=== PATIENT | female | born 1965 | race Caucasian/White ===

== ENCOUNTER 2020-04-16 14:14 | Outpatient (REF) | payer OTHER, SELFPAY ==
--- NOTE | 2020-04-16 | US_ITS ---
EXAMINATION: MM DIAGNOSTIC DIGITAL BREAST TOMOSYNTHESIS, BILATERAL US DIAGNOSTIC ULTRASOUND BREAST, RIGHT CLINICAL INFORMATION: Due for yearly exam. Follow-up probable benign bilateral calcifications. Also follow-up probable benign nodularity retroareolar right breast. Findings noted at initial baseline 03/28/2018. Calculated TC score 9% COMPARISON: Mammography: 04/16/2019, 10/02/2018, 03/28/2018 (diagnostic, BI-RADS 3); ultrasound right breast for 01/26/2020, 04/16/2019, 10/02/2018, 03/28/2018 (diagnostic, BI-RADS 3). TECHNIQUE: Digital breast tomosynthesis is performed in both the craniocaudal and mediolateral oblique views along with computer-aided detection (CAD). Synthesized 2D images are generated from the tomosynthesis. Additional bilateral magnification CC and bilateral magnification ML views are obtained. Ultrasound right breast is targeted to the retroareolar region using grayscale imaging and color Doppler without and with harmonics. FINDINGS: The breasts are heterogeneously dense, which may obscure small masses (ACR BI-RADS breast composition Category c). Parenchymal pattern is similar to prior studies. Calcifications in the bilateral breasts are similar to prior studies. There are no focal increasing calcifications or interval pleomorphic types. Calcifications are now considered benign. There is no interval mass or architectural abnormality. Oval dominant mass retroareolar right breast is stable. There is no developing density. No significant changes. Ultrasound right breast shows stable circumscribed dominant hypoechoic mass retroareolar position measuring approximately 1.5 x 1.5 x 0.8 cm. This measured 1.5 x 1.4 x 1.0 cm on initial ultrasound 2018. It is now considered benign. There is also a stable hypoechoic nodule, possibly acorn cyst retroareolar breast measuring under 1 cm with similar size and contour to prior studies. This is now considered benign. There is a hypoechoic mass stable from prior studies 1:00 position measuring approximately 1.1 x 0.7 cm. There is no interval new mass or enlarging lesion. Results are discussed with the patient at time of visit. IMPRESSION: 1. Mammography shows no significant changes from prior studies. The bilateral calcifications are now considered to be benign. 2. Right retroareolar hypoechoic masses are stable from prior ultrasound exams and now considered to be benign. ASSESSMENT: BI-RADS 2: Benign RECOMMENDATION: Routine annual mammography screening. This patient's information was entered into a reminder system with a target due date for their next mammogram.
== END 2020-04-16 14:15 | disposition home or self-care (01) ==
LOC: HO.MAMMO 14:14
PROVIDERS: Visit Provider Internal Medicine
DX: R92.8 Other abnormal and inconclusive findings on diagnostic imaging of breast (principal)
CPT/HCPCS: 76642; 77062; 77066; 78013

== ENCOUNTER 2020-08-24 09:57 | Outpatient (REF) | payer OTHER, SELFPAY ==
[2020-08-24 10:07] LABS: COVID-19 Test Positive (Negative)
== END 2020-08-24 09:58 | disposition home or self-care (01) ==
LOC: HO.LAB 09:57
PROVIDERS: Visit Provider Internal Medicine
DX: Z20.822 Contact with and (suspected) exposure to COVID-19 (principal)
CPT/HCPCS: 36415; 87635; C9803

== ENCOUNTER 2020-09-16 19:42 | Emergency (ER) | payer OTHER, SELFPAY ==
--- NOTE | ~2020-09-16 | XR_ITS ---
EXAMINATION: XR CHEST CLINICAL INFORMATION: Fatigue. COMPARISON: Chest CT dated 08/16/2018. TECHNIQUE: Frontal view of the chest was obtained. FINDINGS: No significant abnormality is noted involving the heart, lungs, mediastinum, bony thorax or soft tissues. XR/XR chest 1V IMPRESSION: No acute cardiopulmonary process.
[2020-09-16 21:45] VITALS: BP 140/78; PULSE 88; RESP 16; TEMP 37; O2SAT 96; BMI 16.7
--- NOTE | 2020-09-16 21:52 | ED.GENADULT ---
HPI - General Adult General Chief complaint: General Medical Stated complaint: Weakness Time Seen by Provider: 09/16/20 21:18 Source: patient Mode of arrival: ambulatory History of Present Illness HPI narrative: This is a 55-year-old female who presents as having been COVID-19 positive 3 weeks ago and recently returned to work but states that she has continued to experience significant fatigue and weakness that has not been associated with any new fevers, chills, sore throat, shortness of breath, chest pain/palpitations. She does report some episodes of nausea with nonbloody/nonbilious vomiting as well as diarrhea but denies any urinary symptoms. Patient is a current everyday smoker and has continued to smoke as well as drinking alcohol and she states that her last drink was yesterday. Related Data Previous Rx's Medication Instructions Recorded propranolol 10 mg tablet 10 mg PO DAILY PRN #90 tab 07/21/20 atorvastatin 20 mg tablet 20 mg PO DAILY #30 tab 08/12/20 sertraline 50 mg tablet 50 mg PO DAILY #30 tab 08/12/20 Allergies Allergy/AdvReac Type Severity Reaction Status Date / Time No Known Allergies Allergy Unverified 03/25/20 15:24 Review of Systems Review of Systems: Pertinent positives and negatives as stated in the HPI and 10 point review of systems is otherwise negative. PMFSH Past Medical History Source: nursing notes reviewed Medical History Anxiety Colonoscopy refused Mammogram declined Mixed dyslipidemia Refused influenza vaccine Social History Social History Advance Directives: Yes Advance Directives on File: Yes Advance Directives Date on File: 04/16/20 Physical Exam Vital Signs: Vital Signs: Last Vital Signs Temp 98.6 F 09/16/20 21:45 Pulse 88 09/16/20 21:45 Resp 16 09/16/20 21:45 BP 140/78 H 09/16/20 21:45 Pulse Ox 96 09/16/20 21:45 Body Mass Index 16.7 VITAL SIGNS: Reviewed. GENERAL: Well developed, well nourished, in no acute distress. HEAD: Normocephalic/atraumatic, EYES: PERRLA, EOMI EARS: Ext canals without abnormality NOSE: Nares patent bilateral OROPHARYNX: no oral lesions noted, posterior pharynx clear NECK: Supple, no adenopathy LUNGS: Normal breath sounds. No tachypnea, No adventitious sounds or accessory muscle use. SpO2<96> CARDIOVASCULAR: Regular rate and rhythm without noted murmurs, no JVD or lower extremity edema. ABDOMEN: Soft, non-tender, non-distended with bowel sounds. SKIN: Inspection of the skin reveals no rashes NEUROLOGIC: Alert and oriented x 4. Course Course Course Narrative: This is a 55-year-old female with history and clinical presentation consistent with post COVID-19 syndrome, but will rule out alternative etiologies such as UTI, anemia, pneumonia. On review of all investigations are no acute findings to better explain patient's presentation and suspect this is on the continuum of post COVID-19 infection. Patient was informed of all results and strongly encouraged to follow up her primary care provider for further discussion of return to work given her current fatigue. Medical Decision Making Lab Data Result diagrams: 09/16/20 22:04 09/16/20 22:04 Labs: Lab Results 09/16/20 09/16/20 09/16/20 Range/Units 22:04 22:04 23:12 WBC 8.4 (4.8-10.8) X10*3/uL RBC 3.64 L (4.20-5.50) X10*6/uL Hgb 12.5 (12.0-16.0) g/dl Hct 37.1 (37-47) % MCV 101.9 H (80-98) fL MCH 34.3 H (27.0-33.0) pg MCHC 33.7 (31.0-35.0) g/dl RDW 13.8 (11.0-16.0) % Plt Count 293 (160-400) X10*3/uL MPV 9.7 (9.4-12.3) fL Immature Gran % (Auto) 0.2 (0.0-0.4) % Neut % (Auto) 43.1 L (45-73) % Lymph % (Auto) 43.4 H (20-40) % [place] % (Auto) 10.1 (2-11) % Eos % (Auto) 2.7 (0-4) % Baso % (Auto) 0.5 (0-2) % Lymph # (Auto) 3.7 (1.2-4.9) X10*3/uL [place] # (Auto) 0.9 (0.1-1.2) X10*3/uL Eos # (Auto) 0.2 (0.0-0.4) X10*3/uL Baso # (Auto) 0.0 (0.0-0.2) X10*3/uL Abs Immat Gran (auto) 0.02 (0.00-0.03) X10*3/uL Absolute Neuts (auto) 3.6 (2.0-8.3) X10*3/uL Absolute Nucleated RBC 0.000 (0.0-0.012) X10*3/uL Nucleated RBC % (auto) 0.0 (0.0-0.2) /100WBC Sodium 143 (135-145) mmol/L Potassium 4.2 (3.3-5.1) mmol/L Chloride 106 (96-108) mmol/L Carbon Dioxide 25 (22-29) mmol/L Anion Gap 16 (12-20) BUN 9 (9-16) mg/dL Creatinine 0.59 (0.5-1.4) mg/dL Estim Creat Clear Calc 82.8 Estimated GFR > 60 Random Glucose 92 (60-115) mg/dL Calcium 8.9 (8.4-10.2) mg/dL Total Bilirubin 0.5 (0.0-1.0) mg/dL AST 77 H (5-31) U/L ALT 73 H (0-31) U/L Alkaline Phosphatase 81 (39-117) U/L Total Protein 7.7 (6.5-8.0) g/dL Albumin 4.4 (3.5-5.0) g/dL Urine Color YELLOW Urine Appearance CLEAR Urine pH 5.5 (5.0-8.0) Ur Specific [place] 1.020 (1.005-1.025) Urine Protein NEG (NEG-TRACE) MG/DL Urine Glucose (UA) NEG (NEG) MG/DL Urine Ketones NEG (NEG) MG/DL Urine Blood NEG (NEG) Urine Nitrite NEG (NEG) Ur Leukocyte Esterase NEG (NEG) Discharge Plan Discharge Clinical Impression: Post-acute COVID-19 syndrome Fatigue Qualifiers: Fatigue type: unspecified Qualified Code(s): R53.83 - Other fatigue Patient Disposition: Home, Self-Care Instructions: COVID-19 (Coronavirus Disease 2019) (ED) Additional Instructions: Please resume all home medications as prescribed. You need to follow-up with your primary care provider for further discussion and management regarding your return to work. Do not hesitate to return to the emergency department should you develop any acute worsening of your symptoms. Prescriptions: No Action propranolol 10 mg tablet 10 mg PO DAILY PRN (Reason: for anxiety) Qty: 90 RF: 0 atorvastatin 20 mg tablet 20 mg PO DAILY Qty: 30 RF: 5 sertraline 50 mg tablet 50 mg PO DAILY Qty: 30 RF: 5 Referrals: Physician,Unknown [Primary Care Provider] - 2 days Stand Alone Forms: Work/School Release
[2020-09-16 22:00] VITALS: BP 110/60; PULSE 90; RESP 20; TEMP 36.9; O2SAT 96
[2020-09-16 22:15] LABS: MANUAL DIFF FLAG NO
[2020-09-16 22:16] LABS: Basophils Percent Auto 0.5 % (0-2); Eosinophils Absolute Auto 0.2 X10*3/uL (0.0-0.4); Eosinophils Percent Auto 2.7 % (0-4); Hematocrit 37.1 % (37-47); Hemoglobin 12.5 g/dl (12.0-16.0); Imm Gran Abs Auto 0.02 X10*3/uL (0.00-0.03); Imm Gran Pct Auto 0.2 % (0.0-0.4); Lymphocytes Absolute Auto 3.7 X10*3/uL (1.2-4.9); Lymphocytes Percent Auto 43.4 % (20-40); Mean Corpuscular HGB Conc 33.7 g/dl (31.0-35.0); Mean Corpuscular Hemoglobin 34.3 pg (27.0-33.0); Mean Corpuscular Volume 101.9 fL (80-98); Mean Platelet Volume 9.7 fL (9.4-12.3); Monocytes Absolute Auto 0.9 X10*3/uL (0.1-1.2); Monocytes Percent Auto 10.1 % (2-11); Neutrophils Absolute Auto 3.6 X10*3/uL (2.0-8.3); Neutrophils Percent Auto 43.1 % (45-73); Platelet Count 293 X10*3/uL (160-400); Red Blood Count 3.64 X10*6/uL (4.20-5.50); Red Cell Distribution Width 13.8 % (11.0-16.0); White Blood Count 8.4 X10*3/uL (4.8-10.8)
[2020-09-16 22:48] LABS: Alanine Aminotransferase 73 U/L (0-31); Albumin Level 4.4 g/dL (3.5-5.0); Alkaline Phosphatase 81 U/L (39-117); Anion Gap 16 (12-20); Aspartate Amino Transferase 77 U/L (5-31); Bilirubin Total 0.5 mg/dL (0.0-1.0); Blood Urea Nitrogen 9 mg/dL (9-16); Calcium 8.9 mg/dL (8.4-10.2); Carbon Dioxide 25 mmol/L (22-29); Chloride 106 mmol/L (96-108); Creatinine Clr Calc Pharmacy 82.8; Estimated Glomerular Filt Rate > 60; Glucose Random 92 mg/dL (60-115); Potassium 4.2 mmol/L (3.3-5.1); Sodium 143 mmol/L (135-145); Total Protein 7.7 g/dL (6.5-8.0)
[2020-09-16 23:24] LABS: Glucose Urine UA NEG (NEG); Leukocyte Esterase Urine NEG (NEG); Nitrite Urine NEG (NEG); PH 5.5 (5.0-8.0); Urine Blood NEG (NEG); Urine Ketones NEG (NEG); Urine Protein NEG (NEG-TRACE)
[2020-09-16 23:34] LABS: Appearance Urine CLEAR; Color Urine YELLOW
[2020-09-16 23:59] LABS: Mucus Urine TRACE /LPF; RBC Urine 0 /HPF (0); Squamous Epithelial Cell Urine TRACE /LPF; WBC Urine 0-2 /HPF (0-4)
[2020-09-17] VITALS: BP 157/81; PULSE 66; RESP 16; TEMP 37.2; O2SAT 96
== END 2020-09-16 23:45 | disposition home or self-care (01) ==
PROVIDERS: Emergency Provider Student in an Organized Health Care Education/Training Program
DX: U07.1 COVID-19 (principal); Z79.899 Other long term (current) drug therapy
CPT/HCPCS: 36415; 71045; 80053; 81001; 85025; 99284

== ENCOUNTER 2020-10-08 09:08 | Outpatient (REF) | payer OTHER, SELFPAY ==
[2020-10-08 12:03] LABS: Alanine Aminotransferase 102 U/L (0-31)
[2020-10-08 12:04] LABS: Albumin Level 4.6 g/dL (3.5-5.0); Alkaline Phosphatase 82 U/L (39-117); Aspartate Amino Transferase 116 U/L (5-31); Bilirubin Direct 0.4 mg/dL (0.0-0.5); Bilirubin Total 0.6 mg/dL (0.0-1.0); Total Protein 7.8 g/dL (6.5-8.0)
[2020-10-08 12:35] LABS: Folate 7.1 ng/mL (> or = 4.0); Vitamin B12 297 pg/mL (200-900)
== END 2020-10-08 09:09 | disposition home or self-care (01) ==
LOC: HO.HMGCLDS 09:08
PROVIDERS: PCP Internal Medicine; Visit Provider Internal Medicine
DX: R74.8 Abnormal levels of other serum enzymes (principal); I10 Essential (primary) hypertension; Z72.89 Other problems related to lifestyle
CPT/HCPCS: 36415; 80076; 82306; 82607; 82746

== ENCOUNTER → 2020-12-20 10:02 | Outpatient (BNVA) | payer OTHER, SELFPAY | PROVIDERS: PCP Internal Medicine | DX: Z13.89 Encounter for screening for other disorder (principal) | CPT/HCPCS: 99203 ==

== ENCOUNTER → 2020-12-28 10:02 | Outpatient (BNVA) | payer OTHER, SELFPAY | PROVIDERS: PCP Internal Medicine; Visit Provider Physician Assistant | DX: Z13.89 Encounter for screening for other disorder (principal) | CPT/HCPCS: 99213 ==

== ENCOUNTER 2023-01-19 13:48 | Outpatient (AMB) | payer OTHER, SELFPAY ==
--- NOTE | 2023-01-19 13:55 | MHC.OFFWIV ---
Intake Vital Signs 01/19/23 14:00 BP 140/80 H Blood Pressure Location Rt brachial Position Sitting Pulse 112 H Pulse Source Pulse Oximeter Pulse Oximetry (%) 97 Oxygen Delivery Method Room Air Intake Visit Reasons: EP back cracked when lifting Intake Note: Patient here for lower back pain, she stated that she lifted 2 very heavy boxes and when she went to lift the 3rd box she heard a very loud crack in her lower back and is in a lot of pain. Patient Tobacco Use Status: Never used Tobacco Allergies No Known Allergies Allergy (Verified 01/19/23 14:00) Do you need a note to return to daycare/school/sports/work: Yes HPI HPI Comments History of Present Illness Details This is a 57-year-old female who presents to the office today for a sick visit. Patient states she was lifting heavy boxes earlier today when she felt/heard a ?crack? in her lower back. Patient now experiencing severe bilateral low back pain. She denies any bowel or bladder incontinence or retention. She denies any numbness/weakness/paresthesias or pain radiating into her lower extremities. She denies any saddle anesthesias. She denies any fevers or chills. PFSH Medical History Alcohol use disorder Colonoscopy refused Elevated liver enzymes Essential hypertension Generalized anxiety disorder Immunization refused Mixed dyslipidemia Papanicolaou smear declined Refused influenza vaccine Smoker unmotivated to quit Social History Alcohol intake: current Patient Tobacco Use Status: Never used Tobacco Advance Directives Date on File: 04/16/20 Review of Systems Const Denies chills, Denies fever(s) and Denies weakness Eyes Reports no additional complaints ENT Reports no additional complaints Card Reports no additional complaints Resp Reports no additional complaints GI Reports no additional complaints and Denies fecal incontinence Denies urinary incontinence Musc Reports no additional complaints, Reports back pain, Denies muscle weakness, Denies numbness and Denies radiating pain into limb Neuro Reports no additional complaints, Denies numbness, Denies radicular pain, Denies paresthesias and Denies weakness Psych Reports no additional complaints Endo Reports no additional complaints Arnold/Lymph Reports no additional complaints Aller/Immun Reports no additional complaints Physical Exam Vital Signs: Last Vital Signs Pulse 112 H 01/19/23 14:00 BP 140/80 H 01/19/23 14:00 Pulse Ox 97 07/14/23 14:00 Oxygen Delivery Method Room Air 01/19/23 14:00 Const General: cooperative, healthy appearing and no acute distress Orientation/consciousness: patient oriented x3 HEENT Head: Yes normal to inspection Ears: hearing grossly normal bilaterally General nose exam: Normal external nose present Face and sinus: Yes normal facial exam Mouth: Normal oral and palatal mucosa present Eyes General: appearance normal, both eyes and all related structures Eyelids: Yes eyelids normal Conjunctivae: conjunctivae normal Sclerae: sclerae normal Pupils: Equal, round and reactive pupils present EOM: EOMs intact bilaterally Chest Chest palpation & inspection: normal inspection of the chest Cardio Rate: regular rate Rhythm: regular rhythm Heart sounds: no gallops, no murmurs and no rubs GI Inspection: Yes normal to inspection and No distended Palpation (GI): Soft to palpation and nontender Auscultation: normal bowel sounds Back/Spine/Pelvis Other: No midline or spinous process tenderness to palpation. Tenderness to palpation of the lumbar paraspinal musculature bilaterally with palpable spasms. Patient unable to lay flat to perform straight leg raise. Skin General skin exam: no rashes or lesions noted Neuro General: patient oriented x3 Cranial nerves: Yes CN's II-XII intact bilaterally and Yes Equal, round and reactive pupils present Cognition (Neuro): normal cognition Gait exam (Neuro): Antalgic gait present Motor exam (neuro): 5/5 motor strength present throughout Assessment & Plan Assessment & Plan (1) Low back pain: Code(s): M54.50 - Low back pain, unspecified Plan This is a 57-year-old female who presented to the office today complaining of low back pain. Patient states she was lifting heavy boxes in heard/felt a ?crack?. Patient denies any red flag symptoms or radicular symptoms. Patient has no midline or spinous process tenderness to palpation. X-ray of the lumbar spine was obtained. History and physical most consistent with an acute lumbosacral sprain/strain. However, disc herniation cannot be ruled out. Patient was informed that disc herniation cannot be diagnosed with an x-ray and she would require a CT or MRI of her lumbar spine, which would need to be performed at the hospital. Patient declines going to the hospital at this time. She is alert and oriented x4 and she has medical competence to make her own medical decisions. Patient states she would like to try symptomatic management prior to more imaging. Recommended rest/activity modification, ice/heat to the area, ibuprofen/acetaminophen as needed for pain management. P.o. methocarbamol 500 mg 3 times daily as needed for muscle spasms and daily lidocaine 5% patch sent to patient's pharmacy. Patient was instructed that metacarpal can be slightly sedating so she should avoid this medication if she needs to drive. Patient was also advised to avoid alcohol while taking this medication. Patient was instructed to proceed directly to the emergency room if she were to develop worsening pain, fever/chills, bowel/bladder incontinence, saddle anesthesias, or numbness/weakness/paresthesias. Patient verbalizes her understanding and she is agreeable with the plan. Orders: Orders XR lumbar spine 4V min Today M54.50 - Low back pain, unspecified Medications: New methocarbamol 500 mg PO TID PRN 10 tabs 0RF muscle spasm lidocaine 5% leave on most painful area for up to 12 hrs 1 patch topical DAILY 15 ea 0RF Coding Level of Care Code Est Pt Level 3 (32441) Diagnoses Low back pain M54.50
[2023-01-19 14:00] VITALS: BP 140/80; PULSE 112; O2SAT 97
== END 2023-01-19 16:06 | disposition home or self-care (01) ==
PROVIDERS: PCP Internal Medicine; Visit Provider Physician Assistant Medical
DX: M54.50 Low back pain, unspecified (principal)
CPT/HCPCS: 99213

== ENCOUNTER 2023-01-19 14:03 | Outpatient (REF) | payer OTHER, SELFPAY ==
--- NOTE | ~2023-01-19 | XR_ITS ---
EXAMINATION: XR LUMBOSACRAL SPINE WITH OBLIQUES CLINICAL INFORMATION: Low back pain. COMPARISON: None available. TECHNIQUE: AP, both oblique, and lateral views of the lumbar spine. Lateral view of the lumbosacral junction. FINDINGS: L5-S1 is transitional with sacralization of L5 and a rudimentary disc at L5-S1. Mild lumbar levoscoliosis with apex at L2-L3. Deformity and lucency is seen L3 with approximate 15% loss of height. The remainder the vertebral bodies are intact. The soft tissues are unremarkable. XR/XR lumbar spine 4V min IMPRESSION: Deformity and lucency at the level L3 vertebral body is of indeterminate age. An acute fracture cannot be excluded. Correlate with physical exam and trauma history. MRI should be considered to better assess for acuity. Transitional anatomy as detailed above.
== END 2023-01-19 14:04 | disposition home or self-care (01) ==
LOC: HO.HMGCX 14:03
PROVIDERS: PCP Internal Medicine; Visit Provider Physician Assistant Medical
DX: M54.50 Low back pain, unspecified (principal)
CPT/HCPCS: 72110

== ENCOUNTER 2023-01-22 12:06 | Emergency (ER) | payer OTHER, SELFPAY ==
--- NOTE | 2023-01-22 13:05 | ED_ITS ---
HPI - General Adult General Chief complaint: Back Pain/Injury Stated complaint: spine inj Time Seen by Provider: 01/22/23 13:24 Source: patient and RN notes reviewed Mode of arrival: ambulatory Limitations: no limitations History of Present Illness HPI narrative: This is a [id number]-female, with a past medical history of anxiety and HTN, presenting to the emergency department with complaints of back pain x 4 days. Patient was seen by her PCP on 01/19/2023 after lifting heavy boxes earlier today and felt a crack in her low back. Xrays revealing Deformity and lucency at the level L3 vertebral body is of indeterminate age. An acute fracture cannot be excluded. Correlate with physical exam and trauma history.? Was called and told that she had a fracture in her back and to go to the ER for a MRI. No hx of back problems in the past. No urinary or bowel incontinence. No dysuria, hematuria, polyuria, hematuria. No abdominal pain, nausea, vomiting or diarrhea. No other complaints or concerns at this time. MD complaint: Back Pain Onset (ago): day(s) Location: back Radiation: extremity Severity: moderate Quality: aching Pain Consistency: constant Relieving factors: immobilization Exacerbating factors: movement Associated symptoms: denies other symptoms Treatments prior to arrival: none Related Data Previous Rx's Medication Instructions Recorded metoprolol succinate 25 mg 12.5 mg PO .q PM #30 tabs 10/08/20 tablet,extended release 24 hr cholecalciferol (vitamin D3) 1,250 1,250 mcg PO QWEEK 90 days #13 caps 01/17/21 mcg (50,000 unit) capsule atorvastatin 20 mg tablet 20 mg PO DAILY #30 tabs 02/11/21 sertraline 50 mg tablet 50 mg PO DAILY #30 tabs 02/11/21 lidocaine 5 % topical patch 1 patch topical DAILY #15 ea 01/19/23 methocarbamol 500 mg tablet 500 mg PO TID PRN muscle spasm #10 01/19/23 tabs acetaminophen 325 mg tablet 650 mg PO Q6H PRN pain #45 tabs 01/22/23 (Tylenol) ibuprofen 600 mg tablet 600 mg PO Q6H PRN pain #45 tabs 01/22/23 oxycodone 5 mg capsule 5 mg PO BID PRN pain #10 caps 01/22/23 Allergies Allergy/AdvReac Type Severity Reaction Status Date / Time No Known Allergies Allergy Verified 01/22/23 13:06 Review of Systems Review of Systems: Constitutional: No Weight loss, No Fever, No Chills ENT/Mouth: No Ear Pain, No Nasal Congestion, No Sinus Pain, No Hoarseness, No sore throat, No Rhinorrhea, No Swallowing Difficulty Cardiovascular: No Chest Pain, No SOB Respiratory: No Cough, No Sputum, No Wheezing Gastrointestinal: No Nausea, No Vomiting, No Diarrhea, No Constipation, No Abdominal pain Genitourinary: No Dysuria, No Urinary Frequency, No Hematuria, No Urinary Incontinence/retention, No Urgency, No Flank Pain Musculoskeletal: No joint pain, No Myalgias, No Joint Swelling Skin: No Skin Lesions, No rash Neuro: No Weakness, No Numbness, No Paresthesias Yes all other systems are reviewed and are negative Constitutional: Constitutional: Reports as per HPI [facility] Past Medical History Medical History Alcohol use disorder Colonoscopy refused Elevated liver enzymes Essential hypertension Generalized anxiety disorder Immunization refused Mixed dyslipidemia Papanicolaou smear declined Refused influenza vaccine Smoker unmotivated to quit Social History Social History Alcohol intake: current Patient Tobacco Use Status: Never used Tobacco Advance Directives: Yes Advance Directives on File: Yes Advance Directives Date on File: 04/16/20 Physical Exam ED Vital Signs: Vital Signs - 24 hr 01/22/23 13:06 Temperature 96.9 F Pulse Rate 106 H Respiratory Rate 18 Blood Pressure 123/73 Pulse Oximetry 96 Oxygen Delivery Method Room Air BMI result Body Mass Index 18.2 Const General: cooperative, comfortable and no acute distress Orientation/consciousness: patient oriented x3 Limitations: no limitations HENMT Head: Yes normal to inspection, Yes normocephalic and Yes atraumatic Ears: hearing grossly normal bilaterally General nose exam: Normal external nose present Face and sinus: Yes normal facial exam Mouth: Normal oral and palatal mucosa present, oropharynx normal and moist mucous membranes Throat: Yes posterior oropharynx normal Eyes General: appearance normal, both eyes and all related structures Eyelids: Yes eyelids normal Conjunctivae: conjunctivae normal Sclerae: sclerae normal Pupils: Equal, round and reactive pupils present EOM: EOMs intact bilaterally Neck Neck: Yes normal visual inspection, Yes full ROM and Yes no lymphadenopathy Lymphatic: no lymphadenopathy noted Chest Chest palpation & inspection: normal inspection of the chest Resp Effort & Inspection: normal respiratory effort and able to speak in complete sentences Auscultation: clear to auscultation bilaterally, no crackles, no rales, no rhonchi and no wheezes Cardio Rate: regular rate Rhythm: regular rhythm Heart sounds: S1 normal heart sound present and S2 normal heart sound present GI Inspection: Yes normal to inspection General: Yes no CVA tenderness Back/Spine/Pelvis Other: TTP over the low lumbar midline spine and parapsinous muscles. DTR 2+ bilaterally. Pt is ambulatory, distal sensation and circulation intact. No overlying skin changes to the entire back. Back: no CVA tenderness Cervical Spine: normal cervical lordosis and cervical ROM normal Thoracic/Lumbar Spine: thoracic and lumbar spine normal to inspection Skin General skin exam: no rashes or lesions noted Trauma: no lacerations or abrasions Wounds: no wounds Neuro General: patient oriented x3 and moves all extremities Cranial nerves: Yes Equal, round and reactive pupils present Extrem General: Yes normal to inspection Right upper extremity: normal to inspection Left upper extremity: normal to inspection Right lower extremity: normal to inspection Left lower extremity: normal to inspection Medical Decision Making Medical Decision Making MDM Narrative: [id number]-female, with a past medical history of anxiety and HTN, presenting to the emergency department with complaints of back pain x 4 days. She heard a crack, and was seen by urgent care where they performed x-rays which revealed Deformity and lucency at the level L3 vertebral body is of indeterminate age. An acute fracture cannot be excluded. Correlate with physical exam and trauma history. MRI should be considered to better assess for acuity. Pt has had no re-injuries to her back since this x-ray. She was told to go to the ER for a MRI of her back. She has no urinary or bowel incontinence. No saddle anethesias. Is ambulatory with steady gait, with no sensation or circulation changes. I discussed with patient that she has no red flag back symptoms and that this MRI should be performed through her PCP. D/c on pain management and steroids. Given return precautions. VSS. Differential Diagnosis Differential Diagnoses: The differential diagnosis associated with the presentation includes Cauda equina syndome, disc herniation, sciatica Admission/Observation Consideration of admission/observation: Escalation of care including admission/observation considered Patient would have been admitted to the hospital had her work up had any findings where hospital admission was appropriate and her clinical presentation warranted hospital admission. Lab Data MDM Lab Attestation statement: I reviewed the patient's lab results. Radiology Impression Discussion of test interpretation with radiology: I have reviewed the radiologist's reading. External Record Review External record reviewed: Inpatient record, Office record, Outpatient record, Prior outpatient labs, Prior outpatient radiology, Primary care record and Outside ED record Discharge Plan Discharge Clinical Impression: Back pain Patient Disposition: Home, Self-Care Instructions: Acute Low Back Pain (ED) Additional Instructions: Your xrays performed on 01/19/2023 revealed a defomirty and lucency at the level of L3 vertebral body, and a fracture cannot be excluded. We are unable to routinely perform MRIs from the emergency department. This must be ordered through a primary care physician. Please take ibuprofen/tylenol as directed as needed for pain. I am also giving you a stronger pain medication, this is only to be taken for severe pain only. We are unable to refill these types of narcotic medication through the emergency department, please follow up with your primary care physician if needed. If you develop any new or worsening symptoms including but not limited to urinary or bowel incontinence, or numbness/tingling in your groin, please return for re-evaluation. Prescriptions: New ibuprofen 600 mg tablet 600 mg PO Q6H PRN (Reason: pain) Qty: 45 0RF acetaminophen [Tylenol] 325 mg tablet 650 mg PO Q6H PRN (Reason: pain) Qty: 45 0RF oxycodone 5 mg capsule 5 mg PO BID PRN (Reason: pain) Qty: 10 0RF Rx Instructions: Partial Fill upon patient request. No Action cholecalciferol (vitamin D3) 1,250 mcg (50,000 unit) capsule 1,250 mcg PO QWEEK 90 Days Qty: 13 0RF sertraline 50 mg tablet 50 mg PO DAILY Qty: 30 5RF atorvastatin 20 mg tablet 20 mg PO DAILY Qty: 30 5RF metoprolol succinate 25 mg tablet extended release 24 hr 12.5 mg PO .q PM Qty: 30 5RF methocarbamol 500 mg tablet 500 mg PO TID PRN (Reason: muscle spasm) Qty: 10 0RF lidocaine 5 % adhesive patch,medicated 1 patch topical DAILY Qty: 15 0RF Rx Instructions: leave on most painful area for up to 12 hrs Stand Alone Forms: Work/School Release Interventions: ED Discharge Assessment Last Done: 01/22/23 13:36 Discharge Date/Time: 01/22/23 13:37
[2023-01-22 13:06] VITALS: BP 123/73; PULSE 106; RESP 18; TEMP 36.1; O2SAT 96; BMI 18.2
== END 2023-01-22 13:37 | disposition home or self-care (01) ==
PROVIDERS: Emergency Provider Emergency Medicine
DX: M54.50 Low back pain, unspecified (principal); I10 Essential (primary) hypertension; E78.2 Mixed hyperlipidemia; F17.200 Nicotine dependence, unspecified, uncomplicated
CPT/HCPCS: 99282; 99283

== ENCOUNTER 2023-02-08 09:46 | Outpatient (AMB) | payer OTHER, SELFPAY ==
[2023-02-08 09:52] VITALS: BP 110/60; PULSE 61; O2SAT 96; BMI 19.0
--- NOTE | 2023-02-08 09:52 | A.OFFPC_ITS ---
Vital Signs 02/08/23 09:52 Height 5 ft 8 in Weight 125 lb BMI 19.0 BP 110/60 Blood Pressure Location Lt brachial Position Sitting Pulse 61 Pulse Source Pulse Oximeter Pulse Oximetry (%) 96 Oxygen Delivery Method Room Air Intake Visit Reasons: injury paperwork from walk in visit per [facility] Intake Note: Pt is here today to f/u back fracture and FMLA paperwork Allergies No Known Allergies Allergy (Verified 02/08/23 10:25) Medication List - Last Reconciled 02/08/[address] MD acetaminophen (Tylenol) 650 mg (2 x 325 mg) PO Q6H PRN lidocaine 5% 1 patch topical DAILY oxycodone 5 mg PO BID PRN Tobacco use date assessed: 02/08/23 Dental Screening Dental Screen Date: 02/08/23 Did you have a dental visit in the last 12 months?: No Was dental information given to patient?: No HPI injury paperwork from walk in visit per [facility] HPI Details [id number]-female, with a past medical history of anxiety and HTN, here for follow-up after recent visit to the ER with presenting with complaints of back pain x 4 days. She heard a crack after lifting boxes filled with dog food,, and was seen by urgent care where they performed x-rays which revealed Deformity and lucency at the level L3 vertebral body is of indeterminate age. An acute fracture cannot be excluded. She has no urinary or bowel incontinence. No saddle anethesias. Is ambulatory with steady gait, she already has an appointment scheduled for an MRI of her lumbar spine 02/23/2023 and has an appointment to be seen at pain pain management center at [place] on 02/12/[address] Rojas, for further evaluation management. In the meantime she has not been taking any medication for pain, would like a prescription sent to her pharmacy for ibuprofen and needs her FMLA application completed PFSH Medical History Acute back pain with radiculopathy Alcohol use disorder Colonoscopy refused Elevated liver enzymes Essential hypertension Generalized anxiety disorder Immunization refused Mixed dyslipidemia Papanicolaou smear declined Refused influenza vaccine Smoker unmotivated to quit Social History Housing: House Alcohol intake: current Patient Tobacco Use Status: Current everyday Tobacco user e-Cigarette/Vaping Use: Never Used Advance Directives Date on File: 04/16/20 Current occupational status: unemployed Cognitive needs: No Hearing needs: No Vision needs: Yes Questionnaire AUDIT C Alcohol Use Questionnaire (AUDIT-C) 1. How often do you have a drink containing alcohol?: 4 or more times a week 2. How many drinks containing alcohol do you have on a typical day when you are drinking?: 3 or 4 3. How often do you have six or more drinks on one occasion?: Never Total Score: 5 Review of Systems Const Denies chills, Denies fever(s), Denies headache(s) and Denies weakness ENT Denies dizziness and Denies headache(s) Card Reports no additional complaints Resp Reports no additional complaints GI Reports no additional complaints and Denies fecal incontinence Denies dysuria, Denies urinary incontinence and Denies urinary hesitancy Musc Reports no additional complaints, Denies abnormal gait, Reports back pain, Denies muscle weakness, Denies numbness and Denies radiating pain into limb Skin/Breast Denies lesions Neuro Denies abnormal gait, Denies dizziness, Denies headache(s), Denies focal weakness, Denies numbness, Reports radicular pain (Spreads to her buttocks and hip), Denies paresthesias and Denies weakness Psych Reports no additional complaints Endo Reports no additional complaints Arnold/Lymph Reports no additional complaints Aller/Immun Reports no additional complaints Physical exam (Primary Care) Vital Signs: Last Vital Signs Pulse 61 02/08/23 09:52 BP 110/60 02/08/23 09:52 Pulse Ox 96 02/08/23 09:52 Oxygen Delivery Method Room Air 02/08/23 09:52 BMI result Body Mass Index 19.0 Tobacco/Smoking Status: Tobacco use Status Tobacco use date assessed 02/08/23 02/08/23 10:03 Patient Tobacco Use Status Current everyday Tobacco 02/08/23 10:03 e-Cigarette/Vaping Use Never Used 02/08/23 10:03 Const Other: Alert oriented x3 in mild pain distress, ambulatory with a slow gait Orientation/consciousness: patient oriented x3 Neck Neck: Yes full ROM, Yes no lymphadenopathy and Yes supple Resp Auscultation: clear to auscultation bilaterally Cardio Other: S1-S2 present regular rate and rhythm GI Palpation (GI): Soft to palpation, nontender, no guarding and no masses Auscultation: normal bowel sounds Back/Spine/Pelvis Other: Tenderness on palpation over lumbosacral spine and paraspinal muscles bilaterally, equivocal straight leg less than sign bilaterally Skin General skin exam: no rashes or lesions noted Neuro General: patient oriented x3, tone normal, moves all extremities, Normal light touch and pain sensation, no focal motor deficits, CN's II-XI intact bilaterally and normal sensation to monofilament Deep tendon reflexes (DTR's): Right patellar reflex intensity grade: 2+ and Left patellar reflex intensity grade: 2+ Extrem Other: Decreased range of motion of hip joints due to pain , no gross bone deformity seen General: Yes no clubbing, cyanosis or edema Assessment and Plan Assessment & Plan (1) Acute back pain with radiculopathy: Code(s): M54.10 - Radiculopathy, site unspecified Plan: FMLA completed, patient has an a H him see [facility] with [facility]. Rojas on 02/12/2023 and an MRI scheduled on 02/23/2023, continue with taking ibuprofen as needed, apply alternating ice and heat packs to affected area 3 times a day as needed peer Coding Level of Care Code Est Pt Level 3 (51758) Diagnoses Acute back pain with radiculopathy M54.10
== END 2023-02-08 14:06 | disposition home or self-care (01) ==
PROVIDERS: PCP Internal Medicine; Visit Provider Internal Medicine
DX: M54.10 Radiculopathy, site unspecified (principal)
CPT/HCPCS: 99213

== ENCOUNTER 2023-02-12 08:16 | Outpatient (AMB) | payer OTHER, SELFPAY ==
--- NOTE | 2023-02-12 08:30 | MHC.OFFVIS ---
Intake Vital Signs 02/12/23 08:32 Height 5 ft 8 in Weight 125 lb BMI 19.0 BP 155/71 H Blood Pressure Location Rt brachial Position Sitting Respiration 14 Pulse 107 H Pulse Source Pulse Oximeter Pulse Oximetry (%) 95 Oxygen Delivery Method Room Air Intake Visit Reasons: wedge compression Fx Allergies No Known Allergies Allergy (Verified 02/12/23 08:33) Medication List - Last Reconciled 02/12/23 by Codi Floyd LPN acetaminophen (Tylenol) 650 mg (2 x 325 mg) PO Q6H PRN ibuprofen 600 mg PO Q6H PRN lidocaine 5% 1 patch topical DAILY oxycodone 5 mg PO BID PRN HPI wedge compression Fx HPI Details 57-year-old female presenting today for an evaluation of wedge compression fracture. The patient complaints of severe bilateral lower back pain radiating down bilateral lower extremities since 01/19/23 after lifting heavy boxes filled with dog food and felt/heard a cracking sound in her lower back. She rates her pain at 7/10 in intensity. She describes her pain as constant and localized in the middle of back, without radiating down the legs. She visited a walk-in clinic and an ER on 01/19/23 and 01/22/23, respectively, for evaluation. She underwent an x-ray in the ER that revealed deformity and lucency at the level of the L3 vertebral body are of indeterminate age. Acute fracture cannot be excluded . She has no urinary. No saddle anethesias. The patient was referred to Eleazar Kirby, who then referred the patient to us for evaluation. She never underwent a DEXA scan in the past. She has a scheduled appointment for an MRI scan in about two weeks at [facility] [place]. She received 10 oxycodone tablets and has 5 tabs left. Of note, the patient reports that she has had significant constipation since this episode of back pain started. She went 11 days without moving her bowels before she had a BM. It has now been 7 days since he had that last BM. Increasing fiber in her diet has not helped. She has not tried any laxative. She has a history of two intestinal obstructions in the past requiring surgical intervention. She has tried Senna in the past. Her current primary care physician is Dr. Anupama Lane. She is a smoker. She denies any history of cancer in the past. [facility] Medical History Acute back pain with radiculopathy Alcohol use disorder Colonoscopy refused Elevated liver enzymes Essential hypertension Generalized anxiety disorder Immunization refused Mixed dyslipidemia Papanicolaou smear declined Refused influenza vaccine Smoker unmotivated to quit Social History Housing: House Alcohol intake: current Patient Tobacco Use Status: Current everyday Tobacco user e-Cigarette/Vaping Use: Never Used Advance Directives Date on File: 04/16/20 Current occupational status: unemployed Cognitive needs: No Hearing needs: No Vision needs: Yes Review of Systems Const All systems reviewed & are unremarkable except as noted in HPI and below Physical Exam Vital Signs: Last Vital Signs Pulse 107 H 02/12/23 08:32 Resp 14 02/12/23 08:32 BP 155/71 H 02/12/23 08:32 Pulse Ox 95 02/12/23 08:32 Oxygen Delivery Method Room Air 02/12/23 08:32 BMI result Body Mass Index 19.0 General: Appears afebrile. Alert and oriented. Mood and affect appropriate. Follows and participates in conversation appropriately. Respiratory effort is unlabored. Able to transition from sit to stand unassisted. Ambulates with bilaterally normal heel strike and toe off. Lower lumbar midline tenderness. Able to stand on toes and heels. Appears unsteady on her feet, but states this is baseline for her. Results Reviewed Results Reviewed: 01/19/23: XR LUMBOSACRAL SPINE WITH OBLIQUES FINDINGS: L5-S1 is transitional with sacralization of L5 and a rudimentary disc at L5-S1. Mild lumbar levoscoliosis with apex at L2-L3. Deformity and lucency is seen L3 with approximate 15% loss of height. The remainder the vertebral bodies are intact. The soft tissues are unremarkable. IMPRESSION: Deformity and lucency at the level L3 vertebral body is of indeterminate age. An acute fracture cannot be excluded. Correlate with physical exam and trauma history. MRI should be considered to better assess for acuity. Assessment & Plan Assessment & Plan (1) Lumbar compression fracture: Code(s): S32.000A - Wedge compression fracture of unspecified lumbar vertebra, initial encounter for closed fracture Plan Recommend MRI of the lumbar spine with STIR sequence as well as DEXA scan of the axial skeleton including vertebral fracture assessment. If the MRI reveals correctable abnormalities, we can proceed with kyphoplasty. I briefly went over details of a kyphoplasty procedure with the patient today in the clinic. We will reach out to her once we have reviewed her MR and DEXA scan results. With regards to her severe constipation, I counseled that she should refrain from using oxycodone that might be precipitating her severe constipation in setting of prior history of intestinal obstruction. I also strongly recommended that she trial Dulcolax until she moves her bowels in combination with senna and Colace as well as MiraLax packets. Also advised her to contact her primary care provider for further management if [id number]-[id number] bowel regimen is not sufficient in quickly relieving her severe constipation. Patient expressed understanding. Scribed for Dr. Rojas by Andres Sanderson, medical administrative technician, on 02/12/2023. I, Dr. Rojas, have personally reviewed and agree with the information entered by the scribe. Orders: Orders MR lumbar spine wo con Today S32.000A - Wedge compression fracture of unspecified lumbar vertebra, initial encounter for closed fracture XR DEXA vertrebral fracture Today S32.000A - Wedge compression fracture of unspecified lumbar vertebra, initial encounter for closed fracture XR DEXA axial skeleton Today S32.000A - Wedge compression fracture of unspecified lumbar vertebra, initial encounter for closed fracture Coding Level of Care Code New Pt Level 4 (54143) Diagnoses Lumbar compression fracture S32.000A
[2023-02-12 08:32] VITALS: BP 155/71; PULSE 107; RESP 14; O2SAT 95; BMI 19.0
== END 2023-02-12 09:22 | disposition home or self-care (01) ==
PROVIDERS: Visit Provider Internal Medicine
DX: S32.030A Wedge compression fracture of third lumbar vertebra, initial encounter for closed fracture (principal)
CPT/HCPCS: 99204

== ENCOUNTER → 2023-02-12 08:16 | Outpatient (BNVA) | payer OTHER, SELFPAY | PROVIDERS: Visit Provider Internal Medicine ==

== ENCOUNTER 2023-02-12 11:10 | Outpatient (REF) | payer OTHER, SELFPAY ==
--- NOTE | ~2023-02-12 | MR_ITS ---
EXAMINATION: MR LUMBAR SPINE WITHOUT CONTRAST CLINICAL INFORMATION: Evaluate compression fracture. COMPARISON: X-ray dated 01/19/2023. TECHNIQUE: Multiplanar, multisequence imaging was obtained. FINDINGS: VERTEBRAL BODIES AND PARASPINAL STRUCTURES: There is marrow edema throughout the L3 vertebral body with a biconcave compression fracture deformity demonstrating a 75% loss of vertebral body height centrally. There is mild buckling of the inferior aspect of the posterior vertebral body cortex without central canal stenosis. Mild paraspinal soft tissue inflammatory changes also evident at this level. No epidural collection visible. The remainder of the marrow signal is heterogeneous with regions of fatty change. The L5 vertebra is transitional and partially sacralized. There is a mild anterolisthesis at the L5-S1 level and a slight posterior subluxation at the L4-L5 level. Mild posterior paraspinal soft tissue edema present which may be due to strain-type injury. There is a mild leftward curvature of the lumbar spine. CONUS MEDULLARIS AND CAUDA EQUINE: The distal cord, conus tip, and cauda equina nerve roots are normal. SPINAL LEVELS: L1-L2: No disc pathology. No central canal stenosis or foraminal narrowing. L2-L3: Mild disc bulge and facet arthropathy without central canal stenosis or foraminal narrowing. L3-L4: Mild disc bulge and facet arthropathy without central canal stenosis. Mild bilateral foraminal narrowing. L4-L5: Mild posterior subluxation and disc bulge with mild facet arthropathy. No central canal stenosis or foraminal narrowing. Mild posterior annular fissure visible in the subarticular zone. L5-S1: Minimal anterolisthesis and small right paracentral disc protrusion. Mild facet arthropathy. No central canal stenosis. Mild right foraminal narrowing. MR/MR lumbar spine wo con IMPRESSION: 1. Subacute biconcave compression fracture deformity at the L3 level with a 75% loss of vertebral body height centrally. Mild paraspinal soft tissue inflammatory changes and buckling of the posterior vertebral body cortex without central canal stenosis. No epidural collection. 2. Transitional lumbosacral junction with partial sacralization of the L5 vertebra. Very mild spondylitic changes. Small right paracentral disc protrusion at the L5-S1 level. Mild leftward curvature of the lumbar spine.
== END 2023-02-12 11:11 | disposition home or self-care (01) ==
LOC: HO.MRI 11:10
PROVIDERS: PCP Internal Medicine; Visit Provider Physician Assistant
DX: S32.000A Wedge compression fracture of unspecified lumbar vertebra, initial encounter for closed fracture (principal)
CPT/HCPCS: 72148

== ENCOUNTER 2023-02-13 14:36 | Outpatient (REF) | payer OTHER, SELFPAY ==
--- NOTE | ~2023-02-13 | MM_ITS ---
EXAMINATION: LVA MORPHOMETRY CLINICAL INDICATION: Wedge compression fracture of unspecified lumbar vertebra. TECHNIQUE: Your patient completed a vertebral fracture assessment using the [employer] DXA system (software version: 14.10 manufactured by [employer]. The following summarizes the results of our evaluation. MEDICATIONS: None listed. LVA MORPHOMETRY RESULTS: Evaluation of the thoracolumbar spine from T5 through L4 was performed. Image quality is good. ASSESSMENT: Severe compression fracture, L3. This corresponds with the approximately 75% loss of height midportion of the vertebral body seen on MRI of February 12, 2023. RECOMMENDATIONS: All patients should ensure an adequate intake of dietary calcium (1200 mg/d) and vitamin D (400-800 IU/d). Effective therapies are now available in the form of bisphosphonates, (alendronate, ibandronate, risedronate, zoledronic acid), antiresorptive agents (calcitonin, estrogen+progesterone and raloxifene), anabolic agent (teriparatide), and RANKL inhibitor (denosumab). These therapies may reduce vertebral, hip and other fractures by up to 50%. FOLLOWUP: People with diagnosed cases of osteoporosis, high risk for fracture, or current vertebral fractures should have regular bone mineral density tests. The frequency of followup vertebral fracture assessment tests should be determined based on clinical circumstances. Often times, testing frequency will be based on rapidly progressing disease, or the addition or elimination of therapy to treat the disease.
== END 2023-02-13 14:37 | disposition home or self-care (01) ==
LOC: HO.MAMMO 14:36
PROVIDERS: PCP Internal Medicine; Visit Provider Internal Medicine
DX: S32.000A Wedge compression fracture of unspecified lumbar vertebra, initial encounter for closed fracture (principal)
CPT/HCPCS: 77080; 77086

== ENCOUNTER 2023-02-20 11:40 | Outpatient (REF) | payer OTHER, SELFPAY ==
--- NOTE | ~2023-02-20 | MM_ITS ---
EXAMINATION: BONE DENSITOMETRY CLINICAL INDICATION: Wedge compression fracture of unspecified lumbar vertebra. COMPARISON: This is the patient's baseline examination. TECHNIQUE: Using a [employer] DXA System (software version: 13.1) manufactured by [employer], dual-energy x-ray absorptiometry was performed of the lumbar spine and left hip. The images are of good technical quality. Summary results are attached. FINDINGS: LEFT FEMUR, NECK: BMD 0.616 g/cm2, Z-score -1.6, T-score -3.0, osteoporosis. LEFT FEMUR, TOTAL: BMD 0.646 g/cm2, Z-score -1.8, T-score -2.9, osteoporosis. AP SPINE L1-L4 (excluding L3): The data of L1-L4 has been changed to exclude the L3 vertebral body, because degenerative sclerosis at this level may cause overestimation of lumbar spine density. BMD 0.690 g/cm2, Z-score -2.5, T-score -4.0, osteoporosis. IDENTIFIED RISK FACTORS: Menopause, history of fracture (adult). HISTORY OF FRACTURE: Spine. MEDICATIONS: None listed. MM/XR DEXA axial skeleton IMPRESSION: 1. DIAGNOSIS: Severe osteoporosis based on the lowest T-score value of -4.0 in the lumbar spine and history of fracture applying World Health Organization criteria. 2. 10-YEAR FRACTURE RISK PREDICTION, FRAX: According to the guidelines, FRAX calculation should only be performed on patients in the osteopenia bone density category. Therefore, FRAX was not performed on this patient. 3. Treatment Recommendations: NOF guidelines recommend consideration for treatment in postmenopausal women and men age 50 and older presenting with the following: -A hip or vertebral (clinical or morphometric) fracture. -T-score less than or equal to -2.5 at the femoral neck or spine after appropriate evaluation to exclude secondary causes. -Low bone mass at the hip or spine and a 10-year fracture probability by FRAX of greater than or equal to 3% for hip fracture or greater than or equal to 20% for major osteoporotic fracture based on the [place] adapted WHO algorithm. 4. Other Recommendations: All treatment decisions require clinical judgment and consideration of individual patient factors, including patient preferences, comorbidities, previous drug use, risk factors not captured in the FRAX model (e.g. frailty, falls, vitamin D deficiency, increased bone turnover, interval significant decline in bone density) and possible under or overestimation of fracture risk by FRAX. Additional medical evaluation for secondary cause of low bone mineral density may be appropriate. FUTURE SCAN RECOMMENDATION: People with diagnosed cases of osteoporosis or at high risk for fracture should have regular bone mineral density tests. For patients eligible for Medicare, routine testing is allowed once every 2 years. The testing frequency can be increased to one year for patients who have rapidly progressing disease, those who are receiving or discontinuing medical therapy to restore bone mass, or have additional risk factors.
== END 2023-02-20 11:41 | disposition home or self-care (01) ==
LOC: HO.MAMMO 11:40
PROVIDERS: PCP Internal Medicine; Visit Provider Internal Medicine
DX: Z13.820 Encounter for screening for osteoporosis (principal); S32.000D Wedge compression fracture of unspecified lumbar vertebra, subsequent encounter for fracture with routine healing; Z78.0 Asymptomatic menopausal state
CPT/HCPCS: 77080; 77086

== ENCOUNTER → 2023-02-20 12:00 | Outpatient (BNV) | payer OTHER, SELFPAY | PROVIDERS: PCP Internal Medicine; Visit Provider Radiology Diagnostic Radiology | DX: M80.00XG Age-related osteoporosis with current pathological fracture, unspecified site, subsequent encounter for fracture with delayed healing (principal) | CPT/HCPCS: 77080 ==

== ENCOUNTER 2023-02-21 11:39 | Day surgery (SDC) | payer OTHER, SELFPAY ==
--- NOTE | 2023-02-20 14:14 | HO.ANESPROP2 ---
HPI - Anesthesia Eval Consult details Narrative: 57yo F for Kyphoplasty PMFSH Active Problems Active Problems: All Active Problems (Updated 02/08/23 @ 12:[address] MD) Acute back pain with radiculopathy (Acute) Lumbar compression fracture (Acute) Papanicolaou smear declined (Acute) Immunization refused (Acute) Generalized anxiety disorder (Acute) Smoker unmotivated to quit (Acute) Alcohol use disorder (Acute) Elevated liver enzymes (Acute) Essential hypertension (Acute) Colonoscopy refused (Acute) Refused influenza vaccine (Acute) Mixed dyslipidemia (Acute) Past Medical History Medical History Acute back pain with radiculopathy Alcohol use disorder Colonoscopy refused Elevated liver enzymes Essential hypertension Generalized anxiety disorder Immunization refused Mixed dyslipidemia Papanicolaou smear declined Refused influenza vaccine Smoker unmotivated to quit Social History Social History Housing: House Alcohol intake: current Patient Tobacco Use Status: Current everyday Tobacco user Tobacco use type: Cigarette Cigarettes Per Day: 20 Years Smoked: 40 & years e-Cigarette/Vaping Use: Never Used Advance Directives Date on File: 04/16/20 Current occupational status: unemployed Cognitive needs: No Hearing needs: No Vision needs: Yes Meds Allergies Allergy/AdvReac Type Severity Reaction Status Date / Time No Known Allergies Allergy Verified 02/12/23 08:33 Home Medications Medication Instructions Recorded Confirmed Last Taken Type ibuprofen 600 mg tablet 600 mg PO Q6H PRN 02/12/23 02/12/23 Unknown History Exam Exam Date and Time: February 20, 2023 178 Assessment and Plan Assessment Anesthesia Assessment: Chart Reviewed
[2023-02-21] VITALS (10 sets, daily range): BP systolic 113–156; BP diastolic 53–85; PULSE 84–115; RESP 14–18; TEMP 36.3–36.5; O2SAT 92–100; BMI 19.0
--- NOTE | ~2023-02-21 | FL_ITS ---
EXAMINATION: XR FLUOROSCOPY WITH IMAGES CLINICAL INFORMATION: Compression fracture. COMPARISON: MR lumbar spine 02/12/2023 TECHNIQUE: Fluoroscopy Supervised By: Dr. Rojas Fluoroscopy Time: 1.4 minutes Cumulative Dose: 11.4 mGy-cm DAP: 0.109 uGy-cm2 Images: 6. FINDINGS: Imaging shows placement of probes with balloons and cement in what appears to be a lumbar vertebral body. Please see Dr. Rojas' report for complete details. FL/FL guidance in OR IMPRESSION: Fluoroscopic guidance for placement of probe.
[2023-02-21] MEDS: Lactated Ringers 1,000 ML 100 ML IVCONT (12:56)
--- NOTE | 2023-02-21 13:05 | P.CONAN_ITS ---
COUNT INCLUDES THE [facility] Active Problems Active Problems: All Active Problems (Updated 02/08/23 @ 12:[address] MD) Acute back pain with radiculopathy (Acute) Lumbar compression fracture (Acute) Papanicolaou smear declined (Acute) Immunization refused (Acute) Generalized anxiety disorder (Acute) Smoker unmotivated to quit (Acute) Alcohol use disorder (Acute) Elevated liver enzymes (Acute) Essential hypertension (Acute) Colonoscopy refused (Acute) Refused influenza vaccine (Acute) Mixed dyslipidemia (Acute) Past Medical History Medical History Acute back pain with radiculopathy Alcohol use disorder Colonoscopy refused Elevated liver enzymes Essential hypertension Generalized anxiety disorder Immunization refused Mixed dyslipidemia Papanicolaou smear declined Refused influenza vaccine Smoker unmotivated to quit Functional capacity: independent ambulation Family History Family history of problems with anesthesia: No Surgical History History of Problems with Anesthesia: No Social History Social History Housing: House Alcohol intake: current Patient Tobacco Use Status: Current everyday Tobacco user Tobacco use type: Cigarette Cigarettes Per Day: 20 Years Smoked: 40 & years Smoked in Last 30 Days: Yes e-Cigarette/Vaping Use: Never Used Patient Given Instructions on How to Stop Smoking: No Use of substances other than those prescribed or required for medical reasons: No Are you DNR?: No Advance Directives: No Advance Directives Information Provided: Yes Advance Directives Date on File: 04/16/20 Patient : No (tubal ligation) Current occupational status: unemployed Cognitive needs: No Hearing needs: No Vision needs: Yes Meds Allergies Allergy/AdvReac Type Severity Reaction Status Date / Time No Known Allergies Allergy Verified 02/12/23 08:33 Active Medications: Current Medications Albuterol Sulfate (Albuterol Sulfate (0.083%) 2.5 Mg/3 Ml Vial.Neb) 2.5 mg INHALE ONCE PRN PRN Reason: Shortness of Breath/Wheezing Lactated Ringer's (Lr) 1,000 mls @ 100 mls/hr IVCONT .Q10H ANN Last Admin: 02/21/23 12:56 Dose: 100 mls/hr Home Medications Medication Instructions Recorded Confirmed Last Taken Type ibuprofen 600 mg tablet 600 mg PO Q6H PRN 02/12/23 02/12/23 Unknown History Exam Exam Date and Time: February 21, 2023 1305 Height,Weight and Vital Signs: Height 5 ft 8 in Weight 56.699 kg Last Vital Signs Temp 97.4 F 02/21/23 12:36 Pulse 109 H 02/21/23 12:36 Resp 18 02/21/23 12:36 BP 138/85 02/21/23 12:36 Pulse Ox 94 02/21/23 12:36 O2 Del Method Room Air 02/21/23 12:36 Airway Mallampati Class: II TM Dist: >3cm Neck ROM: Full Heart: RRR Lungs: CTA Assessment and Plan Final Anesthetic Review Family History of Problems with Anesthesia: No History of Problems with Anesthesia: No NPO: Yes ASA Class: II Final Preanesthetic Review: Meds/Allgs Chart Reviewed, Consent Obtained/Reviewed and Anes Risks/Benef Reviewed Patient Risk: Low Procedure Risk: Low Anesthetic Plan Anesthetic Plan: MAC: Disposition: Standard PACU
[2023-02-21 13:39] LABS: MRSA Nasal PCR NEGATIVE (Negative); SA Nasal PCR NEGATIVE (Negative)
--- NOTE | 2023-02-21 13:54 | MHC.SHP ---
Pre-Procedural Eval Section A Date of Service: 02/21/23 The patient is an INPATIENT: No Changes since office visit: Yes Patient answered all questions The History & Physical has been completed within 30 days and I have reviewed it.: Yes Section B Chief Complaint: Wedge compression fracture of L3 vertebral body Relevant Family History (Specify if Yes): No Relevant Social History: None Present Medications: see Short Stay Collaborative assessment Medical History: Significant History (Osteoporosis per DEXA scan results) History of Previous Operations: No relevant previous surgery Allergies: Allergies Allergy/AdvReac Type Severity Reaction Status Date / Time No Known Allergies Allergy Verified 02/12/23 08:33 Review of Systems Sugical H&P ROS: Negative: Constitution, Cardiovascular and Respiratory Exam Surgical H&P Exam: Normal: HEENT, Normal: Heart and Normal: Lungs Plan Diagnosis/Plan: Unchanged I have reviewed the history and physical and performed a pertinent physical examination on my patient. No changes have occurred unless specified. Proceed with L3 vertebral body kyphoplasty for L3 wedge compression fracture secondary to osteoporosis. Time Spent With Patient Time: Total time managing care of this patient today ____ minutes.
--- NOTE | 2023-02-21 16:28 | HO.POSTANES ---
Post Anesthesia Evaluation Post Anesthesia Evaluation Date of Service: 02/21/23 Vital Signs: Vital Signs Temp Pulse Resp BP Pulse Ox O2 Del Method O2 Flow Rate 02/21/23 16:17 97.6 F 105 H 15 135/74 97 Nasal Cannula 2 02/21/23 12:36 97.4 F 109 H 18 138/85 94 Room Air Anesthesia: General Endotracheal-GETA and General Mental Status: Awake Pain Control: Satisfactory Nausea/Vomiting: None Hydration: Adequate Anesthesia-Related Issues: No Anes. Related Issues
[2023-02-21] MEDS: ondansetron HCL 4 MG/2 ML VIAL IVPUSH (16:29)
--- NOTE | 2023-02-21 16:33 | P.BOP_ITS ---
Brief Operative Note Date of Service: 02/21/23 Pre-op diagnosis: L3 osteoporotic vertebral compression fracture Post-op diagnosis: same Procedure: L3 balloon kyphoplasty Surgeon: Mau Rojas MD Anesthesia: GETA Was an [employer] Engineering Manager used for this Procedure?: No Estimated blood loss (mL): 30 Pathology: none sent Condition: stable Disposition: PACU
--- NOTE | 2023-02-21 16:34 | P.OP_ITS ---
Operative Note Operative Note Date of Service: 02/21/23 Narrative: Kyphon Balloon Kyphoplasty with Insertion of HV-R Bone Cement, L3 Vertebral Body The patient was brought to the operating room and general anesthesia with endotracheal intubation was induced. The patient was positioned prone on the table. The back was prepped and draped. Two image intensifiers (C-arms) were brought into the AP and lateral positions and the L3 pedicles were identified and marked with a skin marker. A transpedicular approach to the vertebral body was deemed appropriate. A spinal needle was advanced along the expected course of the introducer up to the pedicle and the tract was anesthetized with 0.25% bupivacaine with epinephrine. A stab incision was made 2 cm lateral to the pedicle with a 15 blade. A 10-gauge bevel introducer was advanced through the L3 pedicle to the junction of the pedicle and vertebral body on the left side first. Positioning was confirmed on the AP and lateral plane at regular intervals to ensure bevel position within the cortical boundaries of the pedicle until the body of the vertebra was accessed. Following satisfactory placement of the osteointroducer, the bevel tip was removed, leaving the cannula in place, positioned approximately 1 cm past the posterior vertebral body wall. Through the cannula, a drill was advanced into the vertebral body under fluoroscopic guidance toward the anterior cortex to create a channel, stopping approximately 3-5 mm posterior to the anterior cortical wall in the lateral view and approaching the ipsilateral edge of the spinous process in the AP view. After completing the entry into the vertebral body, a 15 mm inflatable bone tamp was inserted through the cannula and advanced under fluoroscopic guidance into the vertebral body near the anterior cortex. The radiopaque marker bands on the bone tamp were identified using AP and lateral images and confirmed to be within the anterior 2/3rd of the body. The above sequence of instrument placement was then repeated on the right side. Once both bone tamps were in position, they were inflated sequentially in increments of 0.25 to 0.5 cc of contrast, with careful attention being paid to the inflation pressures and balloon position. The inflation was monitored with AP and lateral imaging. The final balloon volume was 2.5 cc on the left and 2 cc on the right side. Maximum pressure applied on either side was approximately 250-300 psi. There was no breach of the lateral wall or anterior cortex of the vertebral body. Direct reduction of the fracture was achieved and end plate movement was noted. Under fluoroscopic imaging, and the use of the bone void fillers, internal fixation was achieved through a low-pressure injection of appropriately cured KYPHON HV-R methylmethacrylate bone cement. The cavity was filled with a total volume of 2 cc on the left side and 1.5 cc on the right side. Minimal extravasation of the cement was noted through the superior end- plate in to the L2/3 disk, at which point further injection of the cement was stopped. No vascular or spinal extravasation was noted. Once the bone cement had hardened, the bevel tip was reinserted into each of the cannulas to clear it and they were were then removed. Post-procedure, the incisions were closed with 2 silk sutures. The patient was kept in the prone position for approximately 10 minutes post cement injection. She was then turned supine, extubated and brought to the PACU where she reported minimal back pain. She was able to move both her lower extremities at this time. She was subsequently discharged with postprocedure and follow-up instructions. Estimated blood loss was rougly 30 mL.
[2023-02-21] MEDS: LORazepam 2 MG/ML VIAL 1 MG IVPUSH (16:36)
== END 2023-02-21 17:57 | disposition home or self-care (01) ==
PROVIDERS: Registered Nurse Emergency; PCP Internal Medicine; Visit Provider Internal Medicine
PROC: (CPT 22514; principal; 2023-02-21 13:10)
DX: S32.030A Wedge compression fracture of third lumbar vertebra, initial encounter for closed fracture (principal); M81.0 Age-related osteoporosis without current pathological fracture; M54.16 Radiculopathy, lumbar region; Z79.899 Other long term (current) drug therapy; Z79.1 Long term (current) use of non-steroidal anti-inflammatories (NSAID); X50.0XXA Overexertion from strenuous movement or load, initial encounter; X50.9XXA Other and unspecified overexertion or strenuous movements or postures, initial encounter; Y92.9 Unspecified place or not applicable; Y99.8 Other external cause status; I10 Essential (primary) hypertension; R74.8 Abnormal levels of other serum enzymes; E78.2 Mixed hyperlipidemia; F10.90 Alcohol use, unspecified, uncomplicated; F17.210 Nicotine dependence, cigarettes, uncomplicated; Z28.21 Immunization not carried out because of patient refusal
CPT/HCPCS: 22514; 87640; 87641; J0690; J2060; J2250; J2405; J3010; Q9967

== ENCOUNTER → 2023-02-21 11:39 | Outpatient (BNV) | payer OTHER, SELFPAY | PROVIDERS: PCP Internal Medicine; Visit Provider Internal Medicine | DX: S32.030A Wedge compression fracture of third lumbar vertebra, initial encounter for closed fracture (principal) | CPT/HCPCS: 22514 ==

== ENCOUNTER 2023-03-02 11:20 | Outpatient (AMB) | payer OTHER, SELFPAY ==
--- NOTE | 2023-03-02 11:23 | MHC.OFFVIS ---
Intake Vital Signs 03/02/23 11:24 Height 5 ft 8 in Weight 125 lb BMI 19.0 BP 131/88 Blood Pressure Location Lt brachial Position Sitting Respiration 14 Pulse 99 Pulse Source Pulse Oximeter Intake Visit Reasons: S/p Kyphoplasty 02/21/23 Allergies No Known Allergies Allergy (Verified 03/02/23 11:25) Medication List - Last Reconciled 03/02/23 by Codi Floyd LPN acetaminophen (Tylenol) 650 mg (2 x 325 mg) PO Q6H PRN ibuprofen 600 mg PO Q6H PRN lidocaine 5% 1 patch topical DAILY oxycodone 5 mg PO BID PRN HPI S/p Kyphoplasty 02/21/23 HPI Details 57-year-old female is presenting today for a status post kyphoplasty on 02/21/23. The patient states that her pain score improved from 9/10 to 4-5/10 in intensity. She has difficulty climbing stairs and has pain in her legs when she reaches the top. She still reports soreness in her back. She is not interested in any injection therapies at this time. She has started taking calcium supplementation but is yet to start taking vitamin-D supplements. She has never been on bisphosphonate therapy. Past procedure: 02/21/23: Kyphon Balloon Kyphoplasty with Insertion of HV-R Bone Cement, L3 Vertebral Body: 50% relief. PFSH Medical History Acute back pain with radiculopathy Alcohol use disorder Colonoscopy refused Elevated liver enzymes Essential hypertension Generalized anxiety disorder Immunization refused Mixed dyslipidemia Papanicolaou smear declined Refused influenza vaccine Smoker unmotivated to quit Social History Housing: House Alcohol intake: current Patient Tobacco Use Status: Current everyday Tobacco user Tobacco use type: Cigarette Cigarettes Per Day: 20 Years Smoked: 40 & years e-Cigarette/Vaping Use: Never Used Advance Directives Date on File: 04/16/20 Current occupational status: unemployed Cognitive needs: No Hearing needs: No Vision needs: Yes Review of Systems Const All systems reviewed & are unremarkable except as noted in HPI and below Physical Exam Vital Signs: Last Vital Signs Pulse 99 03/02/23 11:24 Resp 14 03/02/23 11:24 BP 131/88 03/02/23 11:24 BMI result Body Mass Index 19.0 General: Appears afebrile. Alert and oriented. Mood and affect appropriate. Follows and participates in conversation appropriately. Respiratory effort is unlabored. Able to transition from sit to stand unassisted. Ambulates with bilaterally normal heel strike and toe off. Incision sites are well healed, clean dry and intact. Results Reviewed Results Reviewed: No imaging is available for review. Assessment & Plan Assessment & Plan (1) Lumbar compression fracture: Code(s): S32.000A - Wedge compression fracture of unspecified lumbar vertebra, initial encounter for closed fracture (2) Osteoporosis: Code(s): M81.0 - Age-related osteoporosis without current pathological fracture Plan Status post L3 kyphoplasty for L3 compression fracture secondary to severe osteoporosis. Patient has had a reasonable response in terms of pain improvement but will need long-term treatment to improve her bone strength and decrease risk of future compression fractures. Recommend continuing calcium and vitamin D supplements for bone strengthening. Also discussed bisphosphonate therapy. I recommended that the patient follow up with her primary care physician for commencing bisphosphonate therapy. Patient is in agreement with the plan and will follow-up as needed. Scribed for Dr. Rojas by Andres Sanderson, medical transcriber, on 03/02/2023. I, Dr. Rojas, have personally reviewed and agree with the information entered by the scribe. Coding Level of Care Code Est Pt Level 3 (33084) Diagnoses Lumbar compression fracture S32.000A Osteoporosis M81.0
[2023-03-02 11:24] VITALS: BP 131/88; PULSE 99; RESP 14; BMI 19.0
== END 2023-03-02 11:46 | disposition home or self-care (01) ==
PROVIDERS: PCP Internal Medicine; Visit Provider Internal Medicine
DX: S32.000A Wedge compression fracture of unspecified lumbar vertebra, initial encounter for closed fracture (principal); M81.0 Age-related osteoporosis without current pathological fracture
CPT/HCPCS: 99024

== ENCOUNTER → 2023-03-02 11:20 | Outpatient (BNVA) | payer OTHER, SELFPAY | PROVIDERS: PCP Internal Medicine; Visit Provider Internal Medicine ==

== ENCOUNTER 2023-09-24 09:31 | Outpatient (REF) | payer OTHER, SELFPAY ==
[2023-09-26 22:19] LABS: TS Negative Control Passed; TS Panel A 0; TS Panel B 0; TS Positive Control Passed; TSpotTB Negative (Negative)
== END 2023-09-24 09:32 | disposition home or self-care (01) ==
LOC: HO.HMGCLDS 09:31
PROVIDERS: PCP Internal Medicine; Visit Provider Internal Medicine
DX: Z11.1 Encounter for screening for respiratory tuberculosis (principal)
CPT/HCPCS: 36415; 86481

== ENCOUNTER 2023-09-25 08:01 | Outpatient (AMB) | payer SELFPAY ==
--- NOTE | 2023-09-25 08:05 | AM.OFFWIN_ITS ---
Intake Vital Signs 09/25/23 08:06 Height 5 ft 8 in Weight 134 lb BMI 20.4 BP 110/76 Blood Pressure Location Rt brachial Position Sitting Pulse 90 Pulse Source Pulse Oximeter Pulse Oximetry (%) 99 Oxygen Delivery Method Room Air Intake Visit Reasons: EP Work PE, No Paperwork Intake Note: Pt is here for work PE Pt said yes to leave any test results on a v/m Patient Tobacco Use Status: Current everyday Tobacco user Allergies No Known Allergies Allergy (Verified 09/25/23 08:17) Medication List - Last Reconciled 09/25/23 by Kade Grey MD acetaminophen (Tylenol) 650 mg (2 x 325 mg) PO Q6H PRN ibuprofen 600 mg PO Q6H PRN HPI EP Work PE, No Paperwork HPI Details 58-year-old female presents [facility] requesting [facility] work physical. Patient is going to be employed at the local [employer] working in the [employer]. She reports she is on no medications. Admits to drink moderate amounts of alcohol. [facility] Medical History Acute back pain with radiculopathy Papanicolaou smear declined Immunization refused Generalized anxiety disorder Smoker unmotivated to quit Alcohol use disorder Elevated liver enzymes Essential hypertension Colonoscopy refused Refused influenza vaccine Mixed dyslipidemia Social History Housing: House Alcohol intake: current Patient Tobacco Use Status: Current everyday Tobacco user Tobacco use type: Cigarette Cigarettes Per Day: 20 Years Smoked: 40 & years e-Cigarette/Vaping Use: Never Used Advance Directives Date on File: 04/16/20 Current occupational status: unemployed Cognitive needs: No Hearing needs: No Vision needs: Yes Physical Exam Vital Signs: Last Vital Signs Pulse 90 09/25/23 08:06 BP 110/76 09/25/23 08:06 Pulse Ox 99 09/25/23 08:06 Oxygen Delivery Method Room Air 09/25/23 08:06 BMI result Body Mass Index 20.4 Const General: cooperative and healthy appearing Nutritional Appearance: well nourished Orientation/consciousness: patient oriented x3 Limitations: no limitations HEENT Head: Yes normal to inspection Eyes General: appearance normal, both eyes and all related structures Neck Neck: Yes normal visual inspection Chest Chest palpation & inspection: normal palpation of entire chest wall Resp Effort & Inspection: normal respiratory effort Neuro General: patient oriented x3 Assessment & Plan Assessment & Plan (1) Physical exam, pre-employment: Code(s): Z02.1 - Encounter for pre-employment examination Plan Patient can do all her job functions without restrictions. I explained to her that this is not a regular complete physical. No bw or screening procedures are done. Coding Level of Care Code Sports/Work/School Physical Diagnoses Physical exam, pre-employment Z02.1
[2023-09-25 08:06] VITALS: BP 110/76; PULSE 90; O2SAT 99; BMI 20.4
== END 2023-09-25 08:24 | disposition home or self-care (01) ==
PROVIDERS: PCP Internal Medicine; Visit Provider Internal Medicine
DX: Z02.1 Encounter for pre-employment examination (principal)
CPT/HCPCS: 99080

== ENCOUNTER 2023-11-23 08:22 | Inpatient (IN) | payer OTHER, SELFPAY ==
[2023-11-23] VITALS (7 sets, daily range): BP systolic 139–158; BP diastolic 85–104; PULSE 92–117; RESP 14–18; TEMP 36.5–36.9; O2SAT 92–98; BMI 21.6
--- NOTE | ~2023-11-23 | CT_ITS ---
EXAMINATION: CT LUMBAR SPINE WITHOUT CONTRAST CLINICAL INFORMATION: Pain. Lifting injury. Prior L3 compression fracture and kyphoplasty. COMPARISON: MRI lumbar spine from 02/12/2023. DEXA imaging from 02/20/2023. TECHNIQUE: Noncontrast multidetector CT imaging examination of the lumbar spine is performed. Axial images and multiplanar reformatted images are reviewed. This CT examination was performed using dose optimization techniques as appropriate, variously including the following: *Automated exposure control *Adjustment of mA and/or kV according to patient size (this includes techniques or standardized protocols for targeted exams where dose is matched to indication/reason for exam; i.e. extremities or head) *Use of iterative reconstruction technique DLP; 409 mGy-cm FINDINGS: Bone density is diffusely decreased in this patient with history of osteoporosis. The alignment of the lumbar vertebra is maintained with exception of chronic anterolisthesis at L5-S1. There are no aggressive osseous lesions. No paraspinal soft tissue mass. Mild concave depression of superior and inferior endplates of T12 vertebral body is new compared to 02/12/2023 and results in 25% central height loss and 10% anterior height loss. Also, there is a new concave depression and small Schmorl's node of the L1 inferior endplate resulting in approximately 25% central height loss and 15% anterior height loss. New concave depression of the L2 superior endplate resulting in approximately 25% central height loss. Old moderate compression fracture of L3 vertebral body, status post cement augmentation with extrusion of some of the cement into the L2-L3 disc space. New mild concave depression of the L4 superior endplate resulting in approximately 10% vertebral body height loss. Chronic mild narrowing of disc space, mild facet arthropathy and grade 1 anterolisthesis at L5-S1. The L5 vertebra is a transitional vertebra; it has a hypertrophied transverse processes that articulate with the sacrum. No evidence of sacral fracture. Bulging discs at L1-L2, L2-L3 and L3-4 produces mild indentation on the ventral surface of the thecal sac. There is no high-grade/significant lumbar spinal canal stenosis. Incidentally noted is atherosclerosis of the abdominal aorta without aneurysm and simple cyst in the left lobe of the liver. CT/CT lumbar spine wo IV con IMPRESSION: * Diffuse osteoporosis and old L3 compression fracture, status post cement augmentation with extrusion of cement into the L2-L3 disc space. * Compared to 02/12/2023, there are new compression fracture deformities of T12, L1, L2 and L4 vertebral bodies. * The vertebral alignment is maintained with exception of chronic mild grade 1 anterolisthesis at L5-S1.
--- NOTE | ~2023-11-23 | US_ITS ---
EXAMINATION: US ABDOMEN COMPLETE CLINICAL INFORMATION: Elevated LFTs. COMPARISON: None available. TECHNIQUE: Real-time imaging of the abdominal viscera. FINDINGS: PANCREAS: Normal. ABDOMINAL AORTA: The proximal, mid, and distal segments are normal in caliber. INFERIOR VENA CAVA: Visualized portions are normal. LIVER: The liver is normal in size. The liver contour is normal. 2.9 cm left hepatic lobe simple cyst. Mildly increased hepatic echogenicity which can be seen in the setting of hepatic steatosis or underlying liver disease. There is no intrahepatic biliary duct dilatation seen. GALLBLADDER: Normal. The gallbladder is physiologically distended without evidence of stones, sludge, polyps, wall thickening or pericholecystic fluid. COMMON BILE DUCT: Normal in caliber measuring 0.3 cm in diameter. RIGHT KIDNEY: Normal. No hydronephrosis. No renal calculi or focal parenchymal lesions. The kidney measures 10.2 cm in maximum dimension. LEFT KIDNEY: Normal. No hydronephrosis. No renal calculi or focal parenchymal lesions. The kidney measures 12.5 cm in maximum dimension. SPLEEN: Normal. The spleen measures 12.6 cm in maximum dimension. FREE FLUID: None. US/US abdomen complete IMPRESSION: Mildly increased hepatic echogenicity which can be seen in the setting of hepatic steatosis or underlying liver disease.
--- NOTE | ~2023-11-23 | MR_ITS ---
MR LUMBAR SPINE WITHOUT CONTRAST CLINICAL INFORMATION: Question cord compression. Compression fractures on CT. Retention. COMPARISON: Lumbar spine CT 11/23/2023 and lumbar spine MRI 02/12/2023. TECHNIQUE: MRI of the lumbar spine was obtained using routine sequences without contrast. FINDINGS: Transitional anatomy is again noted presuming partial sacralization of L5 which shares a completely developed intervertebral disc with S1. There are hypoplastic ribs at the lowermost thoracic type segment using this counting system. Please correlate with plain films prior to any percutaneous or surgical intervention. There is a new edematous biconcave compression fracture at T12 exhibiting 20% vertebral body height loss and no significant retropulsion. There is a new edematous inferior endplate compression fracture at L1 exhibiting 20% inferior endplate height loss. There is a new edematous upper endplate compression fracture at L2 exhibiting 10% upper endplate height loss. Chronic compression fracture at L3 status post vertebral body augmentation. There is mild marrow edema along the left upper L3 endplate. There is a new edematous upper endplate compression fracture at L4 exhibiting 15% upper endplate height loss. Conus terminates at the L1 level. Disc lines are preserved. There is disc desiccation at all lumbar levels. L1-L2: Diffuse disc osteophyte complex and mild bilateral facet arthropathy. No central canal stenosis. Disc osteophyte and facet arthropathy result in mild to moderate bilateral foraminal encroachment. L2-L3: There is a diffuse annular disc bulge and there is mild bilateral facet arthropathy and ligamentum flavum thickening. There is no central canal stenosis. There is mild foraminal encroachment bilaterally. L3-L4: There is a diffuse annular disc bulge and there is severe bilateral facet arthropathy and ligamentum flavum thickening. Findings in concert result in mild to moderate bilateral foraminal encroachment without exiting nerve root compression. L4-L5: Diffuse annular disc bulge and moderate bilateral facet arthropathy and ligamentum flavum thickening. No central canal stenosis and no foraminal stenosis. L5-S1: Diffuse annular disc bulge and bilateral facet arthropathy. No central canal stenosis and no foraminal stenosis. MR/MR lumbar spine wo con IMPRESSION: - Transitional anatomy is again noted presuming partial sacralization of L5 which shares a completely developed intervertebral disc with S1. There are hypoplastic ribs at the lowermost thoracic type segment using this counting system. Please correlate with plain films prior to any percutaneous or surgical intervention. - There are new acute edematous compression fractures at the T12, L1, L2, and L4 levels. - The patient is status post vertebral body augmentation at L3 where there is a chronic biconcave compression fracture and there is mild bone marrow edema along the left upper endplate. - Lumbar spondylosis. No severe central canal stenosis and no severe foraminal stenosis within the lumbar spine.
--- NOTE | 2023-11-23 08:25 | ED_ITS ---
HPI - Back Pain/Injury General Chief Complaint: Back Pain/Injury Stated Complaint: BACK PAIN Time Seen by Provider: 11/23/23 08:24 Source: patient and EMS Mode of arrival: EMS Limitations: no limitations History of Present Illness HPI Narrative: Patient is a 58-year-old female who presents emergency department for evaluation of midline lower back pain. She reports last night she was picking up a bucket of water when she felt a sudden pop and cracking in pain to her mid lower back. She reports a history of L3 compression fracture with kyphoplasty. Has been in severe pain since this lifting incident. She was able to get herself to her bed, but pain has continued to be severe throughout the morning. Denies recent fevers, chills, burning with micturition, urinary frequency/urgency/hesitancy, bladder or bowel dysfunction, numbness or tingling of the perineum or bilateral legs. Denies any known immune compromising conditions, personal history of cancer, or IV drug usage. MD elicited complaint: back pain Related Data Home Medications ?Medication ?Instructions ?Recorded ?Confirmed ibuprofen 600 mg tablet 600 mg PO Q6H PRN 02/12/23 03/02/23 Previous Rx's ?Medication ?Instructions ?Recorded acetaminophen 325 mg tablet 650 mg (2 x 325 mg) PO Q6H PRN 01/22/23 (Tylenol) pain #45 tabs Allergies Allergy/AdvReac Type Severity Reaction Status Date / Time No Known Allergies Allergy Verified 11/23/23 08:36 Review of Systems 2 Review of Systems: Yes all other systems are reviewed and are negative PMFSH Past Medical History Attestation statement: The following information was validated with the patient. Source: old records reviewed Medical History Acute back pain with radiculopathy Papanicolaou smear declined Immunization refused Generalized anxiety disorder Smoker unmotivated to quit Alcohol use disorder Elevated liver enzymes Essential hypertension Colonoscopy refused Refused influenza vaccine Mixed dyslipidemia Social History Social History Housing: House Alcohol intake: current Alcohol intake frequency: 3 or more drinks per day Patient Tobacco Use Status: Current everyday Tobacco user Tobacco use type: Cigarette Cigarettes Per Day: 20 Years Smoked: 40 & years Smoked in Last 30 Days: Yes e-Cigarette/Vaping Use: Never Used Use of substances other than those prescribed or required for medical reasons: No Advance Directives: Yes Advance Directives Information Provided: No Advance Directives on File: No Advance Directives Date on File: 04/16/20 Do you have a plan to hurt others: No Plan Patient : No Current occupational status: unemployed Cognitive needs: No Hearing needs: No Vision needs: Yes Physical Exam 2 Vital Signs: Vital Signs: Last Vital Signs Temp 98.1 F 11/23/23 15:12 Pulse 92 11/23/23 15:12 Resp 16 11/23/23 15:12 BP 139/88 11/23/23 15:12 Pulse Ox 98 11/23/23 15:12 O2 Del Method Room Air 11/23/23 15:12 BMI result Body Mass Index 21.6 Appearance: Alert.?Oriented to person, place and time. No acute distress.?Normal affect. Eyes: Pupils equal, round and reactive to light.? ENT: Pharynx normal.?? Neck: Normal inspection.? Neck supple.?? CVS: Heart sounds normal. Normal heart rate and rhythm.? Pulses normal; bilateral radial pulses 2+, bilateral posterior tibial/dorsalis pedis pulses 2+.? Respiratory: No respiratory distress.? Lung sounds clear to auscultation bilaterally?? Abdomen: Soft and non-tender. Normoactive bowel sounds. No pulsatile mass.?? Skin: Skin warm and dry.? Normal skin color.? Normal skin turgor.?? Extremities: No lower extremity edema.? No calf ttp? Back: + mild paraspinal muscular tenderness from lumbar region to coccyx. No CVA tenderness. No midline spinal tenderness, step-off's, or deformity. Full ROM intact in bilateral lower extremities. Straight leg test negative / positive on right; Straight leg test negative / positive on left. No rashes, lesions, areas of induration or fluctuance, or signs of infection noted., Neuro: Moves all extremities spontaneously. 5/5 strength in hip extension/flexion, abduction, adduction. Sensation to light touch intact bilaterally. Patellar and Achilles reflex 2+ bilaterally. No ataxia, gait normal and steady.. No focal neuro deficits. ( Squat and rise - L4 / Heel walk or robert siflex - L5 / Toe walk - S1) Course Reevaluation(s) Reevaluation #1: CT of the lumbar spine reveals new compression fractures of T12, L1, L2, and L4, in addition to extrusion of the cement into the L2-L3 disc space. Patient was made aware of these findings. Pain has been unchanged from oxycodone and diazepam. Will trial management with IV morphine. She is unable to move on the stretcher due to her pain. If necessary will plan for admission for intractable back pain. Reevaluation #2: Patient reports no improvement in pain with IV morphine, will trial a 2nd dose at this time. Advised by nursing staff she has yet to void since in the department. She has attempted to void with pure wick in place, unable to tolerate movement for bed prado placement. She states that she feels like she symptoms can not urinate despite drinking oral fluids. lower ABD distension, TTP. Plan to obtain bladder scan, and if necessary will place Johnston catheter for retention if need be. Time: 14:04 Reevaluation #3: Urinary retention, bladder scan greater than 800. Will obtain MR of the lumbar spine, concern for cord compression Time: 14:22 Additional Reevaluation(s): Patient signed out to [facility] pending MRI results. If no evidence of cord compression or findings that would warrant surgical intervention plan for admission to medicine service for intractable back pain and further management. 5:16 p.m.. Patient received in sign-out at change of shift pending MRI of the lumbar spine. This shows acute compression fractures of T12, L1, L2, L4 and chronic deformity of L3 status post augmentation. The patient still has significant pain. Will discuss with the hospitalist for admission for pain control Medications Administered Discontinued Medications Generic Name Dose Route Start Last Admin Trade Name Freq PRN Reason Stop Dose Admin Diazepam 2 mg 11/23/23 09:27 11/23/23 09:40 Diazepam 2 Mg Tablet PO 11/23/23 09:28 2 mg ONCE ONE Administration Morphine Sulfate 4 mg 11/23/23 12:42 11/23/23 12:53 Morphine Sulfate 4 Mg/Ml Cartridge IVPUSH 11/23/23 12:43 4 mg ONCE ONE Administration Protocol Morphine Sulfate 4 mg 11/23/23 14:03 11/23/23 14:17 Morphine Sulfate 4 Mg/Ml Cartridge IVPUSH 11/23/23 14:04 4 mg ONCE ONE Administration Protocol Oxycodone HCl 5 mg 11/23/23 08:36 11/23/23 08:44 Oxycodone Hcl Immed Release 5 Mg Tablet PO 11/23/23 08:37 5 mg ONCE ONE Administration Medical Decision Making Medical Decision Making [facility] Narrative: Patient is a 58-year-old female with past medical history of osteoporosis, L3 compression fracture s/p kyphoplasty 02/21/23 and disc protrusion at L5-S1 with radiculopathy, anxiety, alcohol use disorder, hypertension, dyslipidemia. Upon review of her record, pain management had advised that she follow-up with her primary care provider regarding initiation of bisphosphonates, when asked, she states she has not seen her primary care provider since the kyphoplasty nor has she been started on any. Concern at this time for compression fracture, disc herniation/protrusion, verses muscular strain, will obtain CT of the lumbar spine for further evaluation. On exam there are no focal neurological deficits, no red flag symptoms or pertinent past medical history to suggest spinal/epidural infection/abscess, history not consistent with AAA or dissection. Denies recent urinary symptoms to suggest pyelonephritis, UTI, pelvic infection. Differential Diagnosis Differential Diagnoses: The differential diagnosis associated with the presentation includes ( see narrative above) Admission/Observation Consideration of admission/observation: Escalation of care including admission/observation considered ( see narrative above) Lab Data 11/23/23 14:57 11/23/23 14:57 Labs: Lab Results 11/23/23 Range/Units 14:57 WBC 9.2 (4.8-10.8) X10*3/uL RBC 4.18 L (4.20-5.50) X10*6/uL Hgb 15.1 (12.0-16.0) g/dl Hct 43.3 (37.0-47.0) % MCV 103.6 H (80.0-98.0) fL MCH 36.1 H (27.0-33.0) pg MCHC 34.9 (31.0-35.0) g/dl RDW 13.3 (11.0-16.0) % Plt Count 228 (160-400) X10*3/uL MPV 9.7 (9.4-12.3) fL Immature Gran % (Auto) 0.5 H (0.0-0.4) % Neut % (Auto) 62.3 (45-73) % Lymph % (Auto) 26.3 (20-40) % [place] % (Auto) 9.9 (2-11) % Eos % (Auto) 0.3 (0-4) % Baso % (Auto) 0.7 (0-2) % Lymph # (Auto) 2.4 (1.2-4.9) X10*3/uL [place] # (Auto) 0.9 (0.1-1.2) X10*3/uL Eos # (Auto) 0.0 (0.0-0.4) X10*3/uL Baso # (Auto) 0.1 (0.0-0.2) X10*3/uL Abs Immat Gran (auto) 0.05 H (0.00-0.03) X10*3/uL Absolute Neuts (auto) 5.7 (2.0-8.3) x10*3/uL Absolute Nucleated RBC 0.000 (0.0-0.012) X10*3/uL Nucleated RBC % (auto) 0.0 (0.0-0.2) /100WBC Sodium 138 (135-145) mmol/L Potassium 3.7 (3.3-5.1) mmol/L Chloride 102 (96-108) mmol/L Carbon Dioxide 22 (22-29) mmol/L Anion Gap 18 (12-20) BUN 7 L (9-16) mg/dL Creatinine 0.50 (0.5-1.4) mg/dL Estim Creat Clear Calc 116.3 Estimated GFR > 60 Random Glucose 97 (60-115) mg/dL Calcium 9.4 (8.4-10.2) mg/dL Total Bilirubin 1.5 H (0.0-1.0) mg/dL AST 45 H (5-31) U/L ALT 28 (0-31) U/L Alkaline Phosphatase 150 H (39-117) U/L Total Protein 8.2 H (6.5-8.0) g/dL Albumin 3.8 (3.5-5.0) g/dL Urine Color Yellow Urine Appearance Clear Urine pH 6.0 (5.0-9.0) Ur Specific [place] 1.015 (1.005-1.025) Urine Protein Negative (Neg-Trace) mg/dL Urine Glucose (UA) Negative (Negative) mg/dL Urine Ketones Negative (Negative) mg/dL Urine Blood Negative (Negative) Urine Nitrite Negative (Negative) Ur Leukocyte Esterase Negative (Negative) Radiology Impression Discussion of test interpretation with radiology: I have reviewed the radiologist's reading. Radiologist Impression: CT/CT lumbar spine wo IV con IMPRESSION: * Diffuse osteoporosis and old L3 compression fracture, status post cement augmentation with extrusion of cement into the L2-L3 disc space. * Compared to 02/12/2023, there are new compression fracture deformities of T12, L1, L2 and L4 vertebral bodies. * The vertebral alignment is maintained with exception of chronic mild grade 1 anterolisthesis at L5-S1. Independent Historian Clinical information obtained from an independent historian. History obtained from or confirmed by: EMS External Record Review External record reviewed: Outpatient record Prescription Management I considered prescription management with: Pain Medication Critical Care Time Critical Care Time Critical Care Time: Yes Total Critical Care Time: 45 Attestation: I personally attest to this critical care time spent taking care of the patient exclusive of all other billable procedures was approximately 45 minutes including initial evaluation of patient, ordering tests IV morphine for pain management, MR for rule out cord compression, medical consultation, documentation, re-evaluation. Discharge Plan Discharge Clinical Impression: Intractable back pain, Compression fracture of lumbar vertebra Patient Disposition: Admitted As Inpatient Prescriptions: No Action acetaminophen [Tylenol] 325 mg tablet 650 mg PO Q6H PRN (Reason: pain) Qty: 45 0RF ibuprofen 600 mg tablet 600 mg PO Q6H PRN Print Language: Amharic
[2023-11-23] MEDS: oxyCODONE HCl Immed Release 5 MG TABLET PO ×2 (08:44→21:33)
--- NOTE | 2023-11-23 08:45 | PC.NURSE ---
biba from home d/t back injury x yesterday. pt states lifting heavy mop when her back gave out. pt c/o 04/17 nonradiating middle back pain. denies numbness/tingling/urinary incontinence. hx of spinal surgery last february as well as osteoporosis. pt verbalizes being nonambulatory x yesterday d/t pain. medication administered per provider order. effectiveness pending. a&ox4. vss and up to date. no sob/wob noted. respirations even and unlabored. pt waiting to go to CT at this time. plan of care ongoing. call carlson placed within reach.
[2023-11-23] MEDS: diazePAM 2 MG TABLET PO (09:40)
--- NOTE | 2023-11-23 10:46 | PC.NURSE ---
vss and up to date. pt currently denies pain post medication administration. states sx increase w/ movement. pt continues to wait for CT results at this time. respirations remain even and unlabored. plan of care ongoing.
[2023-11-23] MEDS: Morphine Sulfate 4 MG/ML CARTRIDGE IVPUSH ×2 (12:53→14:17)
--- NOTE | 2023-11-23 13:06 | PC.NURSE ---
20gIV placed in the right forearm - medication administered per provider order. effectiveness pending. CIWA = 2. pt aware of CT results/plan of care moving forward. call carlson placed within reach.
--- NOTE | 2023-11-23 15:00 | PC.NURSE ---
pt c/o abd discomfort. upon visualization - distention noted. bladder scan performed by tech displaying 816mL. PA notified/aware. 16Fr abel catheter placed. 1200ml of clear/dark yellow urine noted. UA obtained/sent to lab. MRI form filled out/scanned/placed back in pt chart. respirations remain even and unlabored. plan of care ongoing. call carlson placed within reach.
[2023-11-23 15:03] LABS: MANUAL DIFF FLAG NO
[2023-11-23 15:06] LABS: Basophils Absolute Auto 0.1 X10*3/uL (0.0-0.2); Basophils Percent Auto 0.7 % (0-2); Eosinophils Percent Auto 0.3 % (0-4); Hematocrit 43.3 % (37.0-47.0); Hemoglobin 15.1 g/dl (12.0-16.0); Imm Gran Abs Auto 0.05 X10*3/uL (0.00-0.03); Imm Gran Pct Auto 0.5 % (0.0-0.4); Lymphocytes Absolute Auto 2.4 X10*3/uL (1.2-4.9); Lymphocytes Percent Auto 26.3 % (20-40); Mean Corpuscular HGB Conc 34.9 g/dl (31.0-35.0); Mean Corpuscular Hemoglobin 36.1 pg (27.0-33.0); Mean Corpuscular Volume 103.6 fL (80.0-98.0); Mean Platelet Volume 9.7 fL (9.4-12.3); Monocytes Absolute Auto 0.9 X10*3/uL (0.1-1.2); Monocytes Percent Auto 9.9 % (2-11); Neutrophils Absolute Auto 5.7 x10*3/uL (2.0-8.3); Neutrophils Percent Auto 62.3 % (45-73); Platelet Count 228 X10*3/uL (160-400); Red Blood Count 4.18 X10*6/uL (4.20-5.50); Red Cell Distribution Width 13.3 % (11.0-16.0); White Blood Count 9.2 X10*3/uL (4.8-10.8)
[2023-11-23 15:07] LABS: Appearance Urine Clear; Color Urine Yellow; Glucose Urine UA Negative (Negative); Leukocyte Esterase Urine Negative (Negative); Nitrite Urine Negative (Negative); Specific Gravity - Urine 1.015 (1.005-1.025); Urine Blood Negative (Negative); Urine Ketones Negative (Negative); Urine Protein Negative (Neg-Trace)
[2023-11-23 15:32] LABS: Alanine Aminotransferase 28 U/L (0-31); Albumin Level 3.8 g/dL (3.5-5.0); Alkaline Phosphatase 150 U/L (39-117); Anion Gap 18 (12-20); Aspartate Amino Transferase 45 U/L (5-31); Bilirubin Total 1.5 mg/dL (0.0-1.0); Blood Urea Nitrogen 7 mg/dL (9-16); Calcium 9.4 mg/dL (8.4-10.2); Carbon Dioxide 22 mmol/L (22-29); Chloride 102 mmol/L (96-108); Creatinine Clr Calc Pharmacy 116.3; Estimated Glomerular Filt Rate > 60; Glucose Random 97 mg/dL (60-115); Potassium 3.7 mmol/L (3.3-5.1); Sodium 138 mmol/L (135-145); Total Protein 8.2 g/dL (6.5-8.0)
--- NOTE | 2023-11-23 15:47 | PC.NURSE ---
pt to MRI at this time. plan of care ongoing.
--- NOTE | 2023-11-23 17:25 | P.HPHOSP_ITS ---
<Statement entered by Lc Suarez MD - 11/25/23 17:12> the patient was seen and evaluated with VIVIAN Molina. I agree with her note, assessment and plan with the following. In summary, A 58 years old lady with pmh of Osteoporosis never treated and recent L3 compression fracture presenting with severe back pain after lifting a bucker of water. did not improve with IV and PO pain meds in ED. MRI done showing acute T12, L1, L2, and L4 vertebral body compression fractures. will be admitted for pain management. Intractable lower back pain 2/2 acute multiple compression fractures wi severe osteoporosis MRI found no severe central canal or foraminal stenosis start ATC acetaminophen, Motrin and PRN oxycodone IV Dilaudid 0.5 mg Q 4 p.r.n. Will likely need outpatient bisphosphonate and/or hormone replacement therapy, refer to Endocronology Rest of evaluations by VIVIAN note. History of Present Illness Date of Service: 11/23/23 Attending physician on admission: Lc Suarez Chief Complaint: Intractable back pain Pt is a 58-year-old female with a PMH significant for?severe osteoporosis and L3 compression fracture s/p kyphoplasty on 02/21/2023 who presents to the ED for evaluation of lower back pain after lifting a bucket of water of water at home. Patient was down in the basement and bent over and attempted to lift a mop bucket filled with water. Reports hearing a crack, crack, crack in her back and immediately felt sharp pain in her lower back. Was able to walk to downstairs bedroom and lay down where she stayed the night. In the morning called out to her daughter who brought her her phone so she could call EMS. Patient denies any numbness and tingling in lower extremities or saddle anesthesia. No reportable lower extremity weakness. Denies loss of bowel or bladder function. Experienced some nausea with 1 episode of vomiting while in the ED, but no abdominal pain. Denies fever, chills. No chest pain/pressure, palpitations. Denies shortness of breath. Last year pt had similar episode when she suffered L3 compression fracture after trying to lift her daughter's [employer] box off the porch. Pt currently smokes 1+ packs daily and drinks 2+ drinks daily. Of note, the patient was noted to be retaining urine in the ED and Johnston catheter was placed. In the ED pt was tachycardic up to 104 and hypertensive up to 158/90, vitals otherwise WNL. Labs were grossly unremarkable and at baseline for patient. No leukocytosis. Stable H&H. No significant electrolyte abnormalities. Renal function WNL. Mild chronic transaminitis with bilirubin 1.5, AST 45, and alk- phos 150. UA negative for UTI. CT?of lumbar spine found new compression fracture deformities of T12, L1, L2, and L4 vertebral bodies. Also found diffuse osteoporosis and old L3 compression fracture s/p kyphoplasty with extrusion of cement into the L2-L3 disc space. Also found vertebral alignment maintained with the exception of chronic mild grade 1 anteriolisthesis as L5-S1. Lumbar spine MRI found no severe central canal stenosis and no severe foraminal stenosis, but showed lumbar spondylolysis, and new acute edematous compression fractures at T12, L1, L2, and L4. Pt was treated with oxycodone, diazepam, morphine, and Solu-Medrol. Pt will be admitted to the hospital for treatment and further evaluation of intractable lower back pain in the setting of multiple vertebral body fractures. Review of Systems 2 Review of Systems: Lower back pain Nausea and vomiting x1 episode Denies saddle anesthesia No change to bowel or bladder habits Denies numbness, tingling, or weakness in lower extremities No chest pain/pressure, palpitations Denies shortness of breath PMFSH Medical History Acute back pain with radiculopathy Papanicolaou smear declined Immunization refused Generalized anxiety disorder Smoker unmotivated to quit Alcohol use disorder Elevated liver enzymes Essential hypertension Colonoscopy refused Refused influenza vaccine Mixed dyslipidemia Social History Housing: House Alcohol intake: current Alcohol intake frequency: 3 or more drinks per day Patient Tobacco Use Status: Current everyday Tobacco user Tobacco use type: Cigarette Cigarettes Per Day: 20 Years Smoked: 40 & years Smoked in Last 30 Days: Yes e-Cigarette/Vaping Use: Never Used Use of substances other than those prescribed or required for medical reasons: No Advance Directives: Yes Advance Directives Information Provided: No Advance Directives on File: No Advance Directives Date on File: 04/16/20 Do you have a plan to hurt others: No Plan Nutrition Risks: No Nutritional Risk Patient : No Current occupational status: unemployed Cognitive needs: No Hearing needs: No Vision needs: Yes Meds Allergies Allergy/AdvReac Type Severity Reaction Status Date / Time No Known Allergies Allergy Verified 11/23/23 08:36 Home Medications ?Medication ?Instructions ?Recorded ?Confirmed ?Last Taken ?Type ibuprofen 600 mg tablet 600 mg PO Q6H PRN Pain 02/12/23 11/23/23 Unknown History Physical Exam 2 Vital Signs and Narrative: Vital Signs: Last Vital Signs Temp 98.1 F 11/23/23 15:12 Pulse 92 11/23/23 15:12 Resp 16 11/23/23 15:12 BP 139/88 11/23/23 15:12 Pulse Ox 98 11/23/23 15:12 O2 Del Method Room Air 11/23/23 15:12 BMI result Body Mass Index 21.6 General: AOx3, no acute distress Resp: CTA bilaterally CVS: S1, S2, RRR GI: +BS, NT, no distention Skin: Warm, dry Neuro: Cranial nerves II-XII grossly intact bilaterally. Motor grossly intact bilaterally. Sensation to light touch of lower extremities intact bilaterally. Back: Exam limited due to pt's pain. ROM of back limited secondary to pain. Midline and paraspinal tenderness in the lumbar and coccyx region. Extremities: No edema Psych: Appropriate affect Results Labs 11/23/23 14:57 11/23/23 14:57 Labs: Laboratory Results - last 24 hr 11/23/23 14:57 MCV 103.6 H MCH 36.1 H MCHC 34.9 RDW 13.3 Plt Count 228 MPV 9.7 Immature Gran % (Auto) 0.5 H Neut % (Auto) 62.3 Lymph % (Auto) 26.3 [place] % (Auto) 9.9 Eos % (Auto) 0.3 Baso % (Auto) 0.7 Lymph # (Auto) 2.4 [place] # (Auto) 0.9 Eos # (Auto) 0.0 Baso # (Auto) 0.1 Abs Immat Gran (auto) 0.05 H Absolute Neuts (auto) 5.7 Absolute Nucleated RBC 0.000 Nucleated RBC % (auto) 0.0 Anion Gap 18 Estim Creat Clear Calc 116.3 Estimated GFR > 60 Random Glucose 97 Calcium 9.4 Total Bilirubin 1.5 H AST 45 H ALT 28 Alkaline Phosphatase 150 H Total Protein 8.2 H Albumin 3.8 Urine Color Yellow Urine Appearance Clear Urine pH 6.0 Ur Specific [place] 1.015 Urine Protein Negative Urine Glucose (UA) Negative Urine Ketones Negative Urine Blood Negative Urine Nitrite Negative Ur Leukocyte Esterase Negative Imaging Radiologist's Impressions: Impressions Lumbar Spine CT 11/23/23 09:19 IMPRESSION: * Diffuse osteoporosis and old L3 compression fracture, status post cement augmentation with extrusion of cement into the L2-L3 disc space. * Compared to 02/12/2023, there are new compression fracture deformities of T12, L1, L2 and L4 vertebral bodies. * The vertebral alignment is maintained with exception of chronic mild grade 1 anterolisthesis at L5-S1. Lumbar Spine MRI 11/23/23 14:20 IMPRESSION: - Transitional anatomy is again noted presuming partial sacralization of L5 which shares a completely developed intervertebral disc with S1. There are hypoplastic ribs at the lowermost thoracic type segment using this counting system. Please correlate with plain films prior to any percutaneous or surgical intervention. - There are new acute edematous compression fractures at the T12, L1, L2, and L4 levels. - The patient is status post vertebral body augmentation at L3 where there is a chronic biconcave compression fracture and there is mild bone marrow edema along the left upper endplate. - Lumbar spondylosis. No severe central canal stenosis and no severe foraminal stenosis within the lumbar spine. Assessment and Plan (1) Compression fracture of lumbar vertebra: Status: Acute Plan Pt is a 58-year-old female with a PMH significant for?severe osteoporosis and L3 compression fracture s/p kyphoplasty on 02/21/2023 who presents to the ED for evaluation of lower back pain after lifting a bucket of water of water at home. Pt will be admitted to the hospital for treatment and further evaluation of intractable lower back pain in the setting of multiple vertebral body fractures. Intractable lower back pain Secondary to acute T12, L1, L2, and L4 vertebral body compression fractures MRI found no severe central canal or foraminal stenosis Will treat with scheduled acetaminophen, ibuprofen, oxycodone, Flexeril, and omeprazole Dilaudid 0.5 mg Q 4 p.r.n. PT consult Severe osteoporosis Patient apparently not on any home meds Follow-up outpatient for potential bisphosphonate and/or hormone replacement therapy Alcohol dependence Patient drinks 1-2+ drinks daily Denies history of alcohol withdrawal Monitor on CIWA Nicotine dependence Patient smokes 1+ packs daily Nicotine replacement therapy Full Code Attending:?Dr. Suarez DVT Prophylaxis: Lovenox Pt will require a hospitalization of at least two nights for treatment of?intractable lower back pain secondary to multiple acute vertebral body compression fractures. Patient will require hospitalization for administration of IV analgesics and physical therapy consult. Quality Stroke Does the patient have a stroke diagnosis?: No VTE Prior VTE?: No VTE Risk Level:: Medical - moderate - high VTE Device Contraindication: Treatment Not Indicated VTE Drug Contraindication: N/A - Med Ordered
[2023-11-23] MEDS: methylPREDNISolone Sod Succ 125 MG/2 ML VIAL IVPUSH (17:43)
--- NOTE | 2023-11-23 17:44 | PC.NURSE ---
medication administered per provider order. pt aware of plan of care moving forward in regards to being admitted. respirations even and unlabored.
--- NOTE | 2023-11-23 18:01 | PC.NURSE ---
pt actively vomited onto self/onto hallway floor. pt changed over into fresh hospital attire. pt currently speaking w/ admitting provider at this time. plan of care ongoing.
[2023-11-23] MEDS: Docusate Sodium 100 MG CAPSULE PO (18:43)
[2023-11-23] MEDS: Ibuprofen 600 MG TABLET PO (18:43)
--- NOTE | 2023-11-23 18:55 | PHA.MEDREC ---
Pharmacy Consult ? Medication Reconciliation Pharmacy has completed the medication reconciliation.
[2023-11-23] MEDS: HYDROmorphone HCl 0.5 MG/0.5 ML SYRINGE IVPUSH (19:30)
[2023-11-23] MEDS: ondansetron HCL 4 MG/2 ML VIAL IVPUSH (19:31)
[2023-11-23] MEDS: Enoxaparin Sodium 40 MG/0.4 ML SYRINGE SUBCUT (19:35)
[2023-11-23] MEDS: Nicotine 21 MG PATCH.TD24 TRANSDERMA (19:35)
--- NOTE | 2023-11-23 19:41 | MHC.EDTECH ---
This tech took over care of patient at 1900,patient ate 50% of supper,upon rounding patient was vomiting,RN was made aware. Patient was cleaned and bed linen was changed,vitals taken
--- NOTE | 2023-11-23 19:48 | PC.NURSE ---
Patient had 1 episode of vomiting after eating dinner. Patient denies feeling nauseous, no further episodes of vomiting. Patient requested to be medicated for 01/15 low back pain. Patient medicated with Dilaudid 0.5 mg IV and Zorfran 4 mg IV to promote tolerance for Dilaudid.
[2023-11-23] MEDS: Acetaminophen 325 MG TABLET 975 MG PO (21:34)
[2023-11-23] MEDS: Cyclobenzaprine HCl 5 MG TABLET PO (21:34)
[2023-11-24] MEDS: 0.9 % Sodium Chloride Flush 3 ML SYRINGE IVFLUSH ×4 (05:33→19:38)
[2023-11-24] MEDS: Omeprazole 20 MG CAPSULE.DR PO (05:38)
[2023-11-24 05:39] VITALS: BP 147/76; PULSE 96; RESP 16; TEMP 36.7; O2SAT 95
[2023-11-24] MEDS: oxyCODONE HCl Immed Release 5 MG TABLET PO ×2 (08:47→15:13)
[2023-11-24] MEDS: Cyclobenzaprine HCl 5 MG TABLET PO ×3 (08:48→21:22)
[2023-11-24] MEDS: Acetaminophen 325 MG TABLET 975 MG PO ×3 (08:48→21:21)
[2023-11-24] MEDS: Docusate Sodium 100 MG CAPSULE PO (08:48)
[2023-11-24] MEDS: Ibuprofen 600 MG TABLET PO ×3 (08:48→16:56)
--- NOTE | 2023-11-24 10:00 | PC.NURSE ---
pt seen by physical therapist this morning, scheduled meds given as documented. vss.
[2023-11-24 14:08] VITALS: BP 147/76; PULSE 96; O2SAT 95
--- NOTE | 2023-11-24 14:30 | MHC.CM.PN ---
PT REPORTS SHE LIVES WITH HER AND IS INDEPENDENT WITH CARE SHE DENIES USE OF DME OR HOME SERVICES PT SAYS SHE IS UNSURE IF SHE HAS A HCP, SHE IS AWARE CM CAN ASSIST IF SHE WOULD LIKE TO COMPLETE ONE PCP: SHIRLEY OLSON DCP: TBD PENDING PT EVAL HOME WITH [facility] VS STR TRANSPORT TBD BY DISPO
[2023-11-24 14:43] VITALS: BP 144/66; PULSE 119; RESP 16; TEMP 36.7; O2SAT 96
--- NOTE | 2023-11-24 14:54 | PC.NURSE ---
1200 Ibuprofen not given at the scheduled time. pt stated I will take it later because I'm not in a lot of pain at the moment .
--- NOTE | 2023-11-24 15:58 | HO.PM.IMPN ---
Subjective Subjective Date of Service: 11/24/23 Interval History: Seen and examined this morning Follow-up for intractable back pain/multiple compression fractures Continues to experience significant lower back pain with minimal movement, unable to stand or ambulate Review of Systems Review of Systems: Yes all other systems are reviewed and are negative Constitutional Constitutional: Denies chills and Denies fever(s) Physical Exam Vital Signs: Vital Signs: Last Vital Signs Temp 98.1 F 11/24/23 14:43 Pulse 119 H 11/24/23 14:43 Resp 16 11/24/23 14:43 BP 144/66 H 11/24/23 14:43 Pulse Ox 96 11/24/23 14:43 O2 Del Method Room Air 11/24/23 14:43 BMI result Body Mass Index 21.6 Const: Other: Constitutional-patient awake, alert, in no acute distress, lying comfortably in bed. Appears uncomfortable when she attempts to move Cardiovascular regular rate and rhythm Pulmonary-breathing easy and nonlabored, no respiratory distress GI abdomen soft nondistended Musculoskeletal-patient is able to move all 4 extremities spontaneously although much movement creates significant lower back pain Neuro-cranial nerves 2-12 are grossly intact with no focal deficits Skin is warm and dry Psych appropriate affect Objective Data Active Medications Acetaminophen (Acetaminophen 325 Mg Tablet) 975 mg PO TID [facility] Last Admin: 11/24/23 15:13 Dose: 975 mg Documented By: KAILA Benzonatate (Benzonatate 100 Mg Capsule) 100 mg PO TID PRN PRN Reason: Cough Bisacodyl (Bisacodyl 5 Mg Tablet.) 5 mg PO BEDTIME PRN PRN Reason: Constipation Cyclobenzaprine HCl (Cyclobenzaprine Hcl 5 Mg Tablet) 5 mg PO TID [facility] Last Admin: 11/24/23 15:14 Dose: 5 mg Documented By: KAILA Docusate Sodium (Docusate Sodium 100 Mg Capsule) 100 mg PO DAILY [facility] Last Admin: 11/24/23 08:48 Dose: 100 mg Documented By: KAILA Enoxaparin Sodium (Enoxaparin Sodium 40 Mg/0.4 Ml Syringe) 40 mg SUBCUT Q24H [facility] Last Admin: 11/23/23 19:35 Dose: 40 mg Documented By: TIEN Hydromorphone HCl (Hydromorphone Hcl 0.5 Mg/0.5 Ml Syringe) 0.5 mg IVPUSH Q4H PRN; Protocol PRN Reason: Pain, Severe (Pain Scale 7-10) Last Admin: 11/23/23 19:30 Dose: 0.5 mg Documented By: TIEN Ibuprofen (Ibuprofen 600 Mg Tablet) 600 mg PO TIDWM [facility] Last Admin: 11/24/23 15:14 Dose: 600 mg Documented By: KALIA Melatonin (Melatonin 3 Mg Tablet) 6 mg PO BEDTIME PRN PRN Reason: Insomnia Naloxone HCl (Naloxone Hcl 0.4 Mg/Ml Vial) 0.1 mg IVPUSH Q2M PRN PRN Reason: Respiratory Rate < 10 Nicotine (Nicotine 21 Mg Patch.Td24) 21 mg TRANSDERMA DAILY [facility] Last Admin: 11/24/23 09:20 Dose: Not Given Documented By: KAILA Non-Admin Reason: Patient Refused Omeprazole (Omeprazole 20 Mg Capsule.Dr) 20 mg PO DAILY@0630 [facility] Last Admin: 11/24/23 05:38 Dose: 20 mg Documented By: FROILAN Ondansetron HCl (Ondansetron Hcl 4 Mg/2 Ml Vial) 4 mg IVPUSH Q8H PRN PRN Reason: Nausea and Vomiting Last Admin: 11/23/23 19:31 Dose: 4 mg Documented By: TIEN Oxycodone HCl (Oxycodone Hcl Immed Release 5 Mg Tablet) 5 mg PO TID [facility] Last Admin: 11/24/23 15:13 Dose: 5 mg Documented By: KAILA Polyethylene Glycol (Polyethylene Glycol 3350 17 Gm Powd.Pack) 17 gm PO BID [facility] Sodium Chloride (0.9 % Sodium Chloride Flush 3 Ml Syringe) 3 ml IVFLUSH QSHIFT [facility] Last Admin: 11/24/23 09:20 Dose: 3 ml Documented By: KAILA Labs 11/23/23 14:57 11/23/23 14:57 Assessment and Plan (1) Compression fracture of lumbar vertebra: Status: Acute (2) Intractable back pain: Status: Acute (3) Osteoporosis: Status: Acute Plan Pt is a 58-year-old female with a PMH significant for?severe osteoporosis and L3 compression fracture s/p kyphoplasty on 02/21/2023 who presents to the ED for evaluation of lower back pain after lifting a bucket of water of water at home. Pt will be admitted to the hospital for treatment and further evaluation of intractable lower back pain in the setting of multiple vertebral body fractures. Intractable lower back pain Secondary to acute T12, L1, L2, and L4 vertebral body compression fractures with underlying severe osteoporosis MRI found no severe central canal or foraminal stenosis continue supportive care/pain medication PT consult- recommend short-term rehab when medically ready for discharge Severe osteoporosis Patient apparently not on any home meds Follow-up outpatient for potential bisphosphonate and/or hormone replacement therapy Alcohol dependence Patient drinks 1-2+ drinks daily Denies history of alcohol withdrawal Monitor on CIWA - remains low. No evidence of alcohol withdrawal at this time Nicotine dependence Patient smokes 1+ packs daily Nicotine replacement therapy Full Code DVT Prophylaxis: Lovenox Requires ongoing inpatient hospitalization for treatment of?intractable lower back pain secondary to multiple acute vertebral body compression fractures. Patient will require hospitalization for administration of IV analgesics and physical therapy consult. Quality Stroke Does the patient have a stroke diagnosis?: No VTE Prior VTE?: No VTE Risk Level:: Medical - moderate - high VTE Device Contraindication: Treatment Not Indicated VTE Drug Contraindication: N/A - Med Ordered
--- NOTE | 2023-11-24 16:06 | PC.NURSE ---
pt reported that she hasn't had a bm in 4 days. VIVIAN Escamilla was notified, new orders for po bisacodyl and miralax placed.
--- NOTE | 2023-11-24 16:31 | PC.NURSE ---
Report submitted, message sent via [employer].
[2023-11-24 16:39] VITALS: BMI 20.2
[2023-11-24 16:55] VITALS: BP 119/66; PULSE 108; RESP 18; TEMP 36.2; O2SAT 94
[2023-11-24 19:18] VITALS: BP 138/74; PULSE 112; RESP 18; TEMP 36.7; O2SAT 95
[2023-11-24] MEDS: HYDROmorphone HCl 0.5 MG/0.5 ML SYRINGE IVPUSH (19:37)
[2023-11-24] MEDS: Enoxaparin Sodium 40 MG/0.4 ML SYRINGE SUBCUT (19:37)
[2023-11-24] MEDS: polyethylene glycoL 3350 17 GM POWD.PACK PO (21:21)
[2023-11-25] MEDS: HYDROmorphone HCl 0.5 MG/0.5 ML SYRINGE IVPUSH ×4 (01:32→20:04)
[2023-11-25 03:19] VITALS: BP 130/80; PULSE 104; RESP 16; TEMP 36.2; O2SAT 93
[2023-11-25] MEDS: Omeprazole 20 MG CAPSULE.DR PO (05:51)
[2023-11-25 07:25] VITALS: BP 133/74; PULSE 104; RESP 16; TEMP 36.3; O2SAT 92
--- NOTE | 2023-11-25 08:29 | MHC.CM.PN ---
CM MET WITH PT TO DISCUSS DC PLANS PT IS AWARE STR HAS BEEN RECOMMENDED PT STATES SHE HOPES TO STAY IN THE [facility], SHE LIVES IN [place] BUT DOES NOT WANT [place] [facility] REFERRAL PLACED TO [facility], AND [facility] BASED ON PTS STATED PREFERENCES
[2023-11-25] MEDS: 0.9 % Sodium Chloride Flush 3 ML SYRINGE IVFLUSH ×3 (08:55→20:03)
[2023-11-25] MEDS: Cyclobenzaprine HCl 5 MG TABLET PO ×3 (09:01→20:02)
[2023-11-25] MEDS: Nicotine 21 MG PATCH.TD24 TRANSDERMA (09:01)
[2023-11-25] MEDS: Acetaminophen 325 MG TABLET 975 MG PO ×2 (09:01→15:43)
[2023-11-25 09:02] VITALS: RESP 20
[2023-11-25] MEDS: polyethylene glycoL 3350 17 GM POWD.PACK PO ×2 (09:02→20:00)
[2023-11-25] MEDS: Docusate Sodium 100 MG CAPSULE PO (09:02)
[2023-11-25] MEDS: oxyCODONE HCl Immed Release 5 MG TABLET PO ×2 (09:02→15:43)
[2023-11-25] MEDS: Ibuprofen 600 MG TABLET PO ×3 (09:02→17:32)
[2023-11-25 10:22] LABS: Alanine Aminotransferase 19 U/L (0-31); Albumin Level 3.6 g/dL (3.5-5.0); Alkaline Phosphatase 133 U/L (39-117); Anion Gap 14 (12-20); Aspartate Amino Transferase 29 U/L (5-31); Bilirubin Total 1.8 mg/dL (0.0-1.0); Blood Urea Nitrogen 16 mg/dL (9-16); Calcium 9.7 mg/dL (8.4-10.2); Carbon Dioxide 25 mmol/L (22-29); Chloride 100 mmol/L (96-108); Creatinine Clr Calc Pharmacy 109.7; Estimated Glomerular Filt Rate > 60; Glucose Random 125 mg/dL (60-115); Potassium 3.2 mmol/L (3.3-5.1); Sodium 136 mmol/L (135-145); Total Protein 7.6 g/dL (6.5-8.0)
--- NOTE | 2023-11-25 11:11 | HO.PM.IMPN ---
Subjective Subjective Date of Service: 11/25/23 Interval History: seen and examined this morning follow up for intractable back pain, multiple compression fractures Patient still with significant pain with any movement. Pain controlled at rest Review of Systems Review of Systems: Yes all other systems are reviewed and are negative Constitutional Constitutional: Denies fever(s) Cardiovascular Cardiovascular: Denies chest pain, Denies palpitations and Denies dyspnea Respiratory Respiratory: Denies cough and Denies dyspnea Endocrine Endocrine: Denies palpitations Physical Exam Vital Signs: Vital Signs: Last Vital Signs Temp 97.3 F 11/25/23 07:25 Pulse 104 H 11/25/23 07:25 Resp 20 11/25/23 09:02 BP 133/74 11/25/23 07:25 Pulse Ox 92 11/25/23 07:25 O2 Del Method Room Air 11/25/23 07:25 BMI result Body Mass Index 20.2 Const: Other: Constitutional-patient awake, alert, in no acute distress, lying comfortably in bed. Appears uncomfortable when she attempts to move Cardiovascular regular rate and rhythm Pulmonary-breathing easy and nonlabored, no respiratory distress GI abdomen soft nondistended Musculoskeletal-patient is able to move all 4 extremities spontaneously although much movement creates significant lower back pain Neuro-cranial nerves 2-12 are grossly intact with no focal deficits Skin is warm and dry Psych appropriate affect Objective Data Active Medications Acetaminophen (Acetaminophen 325 Mg Tablet) 975 mg PO TID [facility] Last Admin: 11/25/23 09:01 Dose: 975 mg Documented By: YOAV Benzonatate (Benzonatate 100 Mg Capsule) 100 mg PO TID PRN PRN Reason: Cough Bisacodyl (Bisacodyl 5 Mg Tablet.) 5 mg PO BEDTIME PRN PRN Reason: Constipation Cyclobenzaprine HCl (Cyclobenzaprine Hcl 5 Mg Tablet) 5 mg PO TID [facility] Last Admin: 11/25/23 09:01 Dose: 5 mg Documented By: YOAV Docusate Sodium (Docusate Sodium 100 Mg Capsule) 100 mg PO DAILY [facility] Last Admin: 11/25/23 09:02 Dose: 100 mg Documented By: YOAV Enoxaparin Sodium (Enoxaparin Sodium 40 Mg/0.4 Ml Syringe) 40 mg SUBCUT Q24H [facility] Last Admin: 11/24/23 19:37 Dose: 40 mg Documented By: ROSIO Hydromorphone HCl (Hydromorphone Hcl 0.5 Mg/0.5 Ml Syringe) 0.5 mg IVPUSH Q4H PRN; Protocol PRN Reason: Pain, Severe (Pain Scale 7-10) Last Admin: 11/25/23 09:02 Dose: 0.5 mg Documented By: YOAV Ibuprofen (Ibuprofen 600 Mg Tablet) 600 mg PO TIDWM [facility] Last Admin: 11/25/23 09:02 Dose: 600 mg Documented By: YOAV Melatonin (Melatonin 3 Mg Tablet) 6 mg PO BEDTIME PRN PRN Reason: Insomnia Naloxone HCl (Naloxone Hcl 0.4 Mg/Ml Vial) 0.1 mg IVPUSH Q2M PRN PRN Reason: Respiratory Rate < 10 Nicotine (Nicotine 21 Mg Patch.Td24) 21 mg TRANSDERMA DAILY [facility] Last Admin: 11/25/23 09:01 Dose: 21 mg Documented By: YOAV Omeprazole (Omeprazole 20 Mg Capsule.) 20 mg PO DAILY@0630 [facility] Last Admin: 11/25/23 05:51 Dose: 20 mg Documented By: ROSIO Ondansetron HCl (Ondansetron Hcl 4 Mg/2 Ml Vial) 4 mg IVPUSH Q8H PRN PRN Reason: Nausea and Vomiting Last Admin: 11/23/23 19:31 Dose: 4 mg Documented By: TIEN Oxycodone HCl (Oxycodone Hcl Immed Release 5 Mg Tablet) 5 mg PO TID [facility] Last Admin: 11/25/23 09:02 Dose: 5 mg Documented By: YOAV Polyethylene Glycol (Polyethylene Glycol 3350 17 Gm Powd.Pack) 17 gm PO BID [facility] Last Admin: 11/25/23 09:02 Dose: 17 gm Documented By: YOAV Sodium Chloride (0.9 % Sodium Chloride Flush 3 Ml Syringe) 3 ml IVFLUSH QSHIFT [facility] Last Admin: 11/25/23 08:55 Dose: 3 ml Documented By: YOAV Labs 11/23/23 14:57 11/25/23 09:38 Labs: Laboratory Results - last 24 hr 11/25/23 09:38 Hold Purple Top SEE NOTE Anion Gap 14 Estim Creat Clear Calc 109.7 Estimated GFR > 60 Random Glucose 125 H Calcium 9.7 Total Bilirubin 1.8 H Direct Bilirubin 1.0 H AST 29 ALT 19 Alkaline Phosphatase 133 H Total Protein 7.6 Albumin 3.6 Assessment and Plan (1) Compression fracture of lumbar vertebra: Status: Acute Plan Pt is a 58-year-old female with a PMH significant for?severe osteoporosis and L3 compression fracture s/p kyphoplasty on 02/21/2023 who presents to the ED for evaluation of lower back pain after lifting a bucket of water of water at home. Pt will be admitted to the hospital for treatment and further evaluation of intractable lower back pain in the setting of multiple vertebral body fractures. Intractable lower back pain Secondary to acute T12, L1, L2, and L4 vertebral body compression fractures with underlying severe osteoporosis MRI found no severe central canal or foraminal stenosis continue supportive care/pain medication PT consult- recommend short-term rehab when medically ready for discharge bowel regimen to prevent constipation IR consult to discuss if kyphoplasty indicated elevated LFTs ?due to etoh use abdominal US pending follow LFTs Hypokalemia, mild Likely due to decreased p.o. intake Replace and follow levels Severe osteoporosis Patient apparently not on any home meds outpatient follow up Alcohol dependence Patient drinks 1-2+ drinks daily Denies history of alcohol withdrawal Monitor on CIWA - remains low. No evidence of alcohol withdrawal at this time Nicotine dependence Patient smokes 1+ packs daily Nicotine replacement therapy Full Code DVT Prophylaxis: Lovenox Requires ongoing inpatient hospitalization for treatment of?intractable lower back pain secondary to multiple acute vertebral body compression fractures. Patient will require hospitalization for administration of IV analgesics and physical therapy consult. Quality Stroke Does the patient have a stroke diagnosis?: No VTE Prior VTE?: No VTE Risk Level:: Medical - moderate - high VTE Device Contraindication: Treatment Not Indicated VTE Drug Contraindication: N/A - Med Ordered
[2023-11-25] MEDS: Potassium Chloride Packet 20 MEQ PACKET 40 MEQ PO (12:49)
[2023-11-25 13:31] VITALS: RESP 18
[2023-11-25 15:41] VITALS: BP 112/64; PULSE 98; RESP 16; TEMP 36.3; O2SAT 93
[2023-11-25 19:34] VITALS: BP 124/74; PULSE 103; RESP 16; TEMP 36.3; O2SAT 93
[2023-11-25] MEDS: bisacodyL 5 MG TABLET.DR PO (20:02)
[2023-11-25] MEDS: Sennosides/Docusate Sodium TABLET 1 TAB PO (20:02)
[2023-11-25] MEDS: Enoxaparin Sodium 40 MG/0.4 ML SYRINGE SUBCUT (20:02)
[2023-11-26 03:42] VITALS: BP 123/74; PULSE 101; RESP 17; TEMP 36.6; O2SAT 92
[2023-11-26] MEDS: Omeprazole 20 MG CAPSULE.DR PO (06:06)
[2023-11-26 07:46] VITALS: BP 125/77; PULSE 105; RESP 18; TEMP 36.7; O2SAT 92
[2023-11-26] MEDS: HYDROmorphone HCl 0.5 MG/0.5 ML SYRINGE IVPUSH ×3 (07:50→17:51)
[2023-11-26 08:50] LABS: Alanine Aminotransferase 18 U/L (0-31); Albumin Level 3.4 g/dL (3.5-5.0); Alkaline Phosphatase 136 U/L (39-117); Anion Gap 15 (12-20); Aspartate Amino Transferase 29 U/L (5-31); Bilirubin Direct 1.1 mg/dL (0.0-0.5); Bilirubin Total 1.9 mg/dL (0.0-1.0); Blood Urea Nitrogen 12 mg/dL (9-16); Calcium 9.4 mg/dL (8.4-10.2); Carbon Dioxide 26 mmol/L (22-29); Chloride 99 mmol/L (96-108); Creatinine Clr Calc Pharmacy 103.7; Estimated Glomerular Filt Rate > 60; Glucose Random 122 mg/dL (60-115); Sodium 136 mmol/L (135-145); Total Protein 7.3 g/dL (6.5-8.0)
[2023-11-26] MEDS: Ibuprofen 600 MG TABLET PO ×3 (08:53→16:31)
[2023-11-26] MEDS: Acetaminophen 325 MG TABLET 975 MG PO ×2 (08:53→15:03)
[2023-11-26] MEDS: Sennosides/Docusate Sodium TABLET 1 TAB PO (08:53)
[2023-11-26] MEDS: oxyCODONE HCl Immed Release 5 MG TABLET PO ×2 (08:54→15:02)
[2023-11-26] MEDS: bisacodyL 5 MG TABLET.DR PO (08:54)
[2023-11-26] MEDS: Nicotine 21 MG PATCH.TD24 TRANSDERMA (08:54)
[2023-11-26] MEDS: Cyclobenzaprine HCl 5 MG TABLET PO ×2 (08:54→15:02)
[2023-11-26] MEDS: 0.9 % Sodium Chloride Flush 3 ML SYRINGE IVFLUSH ×2 (08:59→16:36)
[2023-11-26] MEDS: polyethylene glycoL 3350 17 GM POWD.PACK PO (09:01)
--- NOTE | 2023-11-26 10:33 | P.PNIM_ITS ---
Subjective Subjective Date of Service: 11/26/23 Interval History: seen and examined this morning follow up for intractable back pain, multiple compression fractures Patient still with significant pain with any movement. Pain controlled at rest Review of Systems Review of Systems: Yes all other systems are reviewed and are negative Constitutional Constitutional: Denies fever(s) Cardiovascular Cardiovascular: Denies chest pain, Denies palpitations and Denies dyspnea Respiratory Respiratory: Denies cough and Denies dyspnea Endocrine Endocrine: Denies palpitations Physical Exam 2 Vital Signs: Vital Signs: Last Vital Signs Temp 98.1 F 11/26/23 07:46 Pulse 105 H 11/26/23 07:46 Resp 18 11/26/23 07:46 BP 125/77 11/26/23 07:46 Pulse Ox 92 11/26/23 07:46 O2 Del Method Room Air 11/26/23 07:46 BMI result Body Mass Index 20.2 Appearing in no acute distress lung sounds are clear to auscultation heart regular rate rhythm, clear S1, S2 positive bowel sounds, abdomen is soft, nontender neuro patient is alert x3, no focal deficits Objective Data Active Medications Acetaminophen (Acetaminophen 325 Mg Tablet) 975 mg PO TID [facility] Last Admin: 11/26/23 08:53 Dose: 975 mg Documented By: NEO Benzonatate (Benzonatate 100 Mg Capsule) 100 mg PO TID PRN PRN Reason: Cough Bisacodyl (Bisacodyl 5 Mg Tablet.Dr) 5 mg PO BEDTIME PRN PRN Reason: Constipation Last Admin: 11/26/23 08:54 Dose: 5 mg Documented By: NEO Cyclobenzaprine HCl (Cyclobenzaprine Hcl 5 Mg Tablet) 5 mg PO TID [facility] Last Admin: 11/26/23 08:54 Dose: 5 mg Documented By: NEO Enoxaparin Sodium (Enoxaparin Sodium 40 Mg/0.4 Ml Syringe) 40 mg SUBCUT Q24H [facility] Last Admin: 11/25/23 20:02 Dose: 40 mg Documented By: SAHIL Hydromorphone HCl (Hydromorphone Hcl 0.5 Mg/0.5 Ml Syringe) 0.5 mg IVPUSH Q4H PRN; Protocol PRN Reason: Pain, Severe (Pain Scale 7-10) Last Admin: 11/26/23 07:50 Dose: 0.5 mg Documented By: NEO Ibuprofen (Ibuprofen 600 Mg Tablet) 600 mg PO TIDWM [facility] Last Admin: 11/26/23 08:53 Dose: 600 mg Documented By: NEO Melatonin (Melatonin 3 Mg Tablet) 6 mg PO BEDTIME PRN PRN Reason: Insomnia Naloxone HCl (Naloxone Hcl 0.4 Mg/Ml Vial) 0.1 mg IVPUSH Q2M PRN PRN Reason: Respiratory Rate < 10 Nicotine (Nicotine 21 Mg Patch.Td24) 21 mg TRANSDERMA DAILY [facility] Last Admin: 11/26/23 08:54 Dose: 21 mg Documented By: NEO Omeprazole (Omeprazole 20 Mg Capsule.Dr) 20 mg PO DAILY@0630 [facility] Last Admin: 11/26/23 06:06 Dose: 20 mg Documented By: SAHIL Ondansetron HCl (Ondansetron Hcl 4 Mg/2 Ml Vial) 4 mg IVPUSH Q8H PRN PRN Reason: Nausea and Vomiting Last Admin: 11/23/23 19:31 Dose: 4 mg Documented By: TIEN Oxycodone HCl (Oxycodone Hcl Immed Release 5 Mg Tablet) 5 mg PO TID [facility] Last Admin: 11/26/23 08:54 Dose: 5 mg Documented By: NEO Polyethylene Glycol (Polyethylene Glycol 3350 17 Gm Powd.Pack) 17 gm PO BID [facility] Last Admin: 11/26/23 09:01 Dose: 17 gm Documented By: NEO Senna/Docusate Sodium (Sennosides/Docusate Sodium Tablet) 1 tab PO BID [facility] Last Admin: 11/26/23 08:53 Dose: 1 tab Documented By: NEO Sodium Chloride (0.9 % Sodium Chloride Flush 3 Ml Syringe) 3 ml IVFLUSH QSHIFT [facility] Last Admin: 11/26/23 08:59 Dose: 3 ml Documented By: NEO Labs 11/23/23 14:57 11/26/23 08:14 Labs: Laboratory Results - last 24 hr 11/26/23 08:14 Anion Gap 15 Estim Creat Clear Calc 103.7 Estimated GFR > 60 Random Glucose 122 H Calcium 9.4 Total Bilirubin 1.9 H Direct Bilirubin 1.1 H AST 29 ALT 18 Alkaline Phosphatase 136 H Total Protein 7.3 Albumin 3.4 L Assessment and Plan (1) Compression fracture of lumbar vertebra: Status: Acute Plan Pt is a 58-year-old female with a PMH significant for?severe osteoporosis and L3 compression fracture s/p kyphoplasty on 02/21/2023 who presents to the ED for evaluation of lower back pain after lifting a bucket of water of water at home. Pt will be admitted to the hospital for treatment and further evaluation of intractable lower back pain in the setting of multiple vertebral body fractures. Intractable lower back pain Secondary to acute T12, L1, L2, and L4 vertebral body compression fractures with underlying severe osteoporosis MRI found no severe central canal or foraminal stenosis continue supportive care/pain medication PT consult- recommend short-term rehab when medically ready for discharge bowel regimen to prevent constipation IR consult to discuss if kyphoplasty indicated Elevated LFTs ?due to etoh use abdominal US> hepatic steatosis follow LFTs Hypokalemia, resolved Likely due to decreased p.o. intake Repleted Severe osteoporosis Patient apparently not on any home meds outpatient follow up Alcohol dependence Patient drinks 1-2+ drinks daily Denies history of alcohol withdrawal Monitor on CIWA - remains low. No evidence of alcohol withdrawal at this time Nicotine dependence Patient smokes 1+ packs daily Nicotine replacement therapy Full Code Attending Dr. Davis DVT Prophylaxis: Lovenox Requires ongoing inpatient hospitalization for treatment of?intractable lower back pain secondary to multiple acute vertebral body compression fractures. Patient will require hospitalization for administration of IV analgesics and physical therapy consult. Quality Stroke Does the patient have a stroke diagnosis?: No VTE Prior VTE?: No VTE Risk Level:: Medical - moderate - high VTE Device Contraindication: Treatment Not Indicated VTE Drug Contraindication: N/A - Med Ordered
[2023-11-26 11:36] VITALS: BP 125/77; PULSE 105; O2SAT 92
--- NOTE | 2023-11-26 15:35 | PM.DS ---
DS: Providers Provider Date of Service: 11/26/23 Date of admission: 11/23/23 18:25 Primary care physician: Anupama Lane MD DS: Diagnosis Discharge Diagnosis (1) Compression fracture of lumbar vertebra: Status: Acute DS: Summary Hospital Course Hospital Course: History and physical as per admitting provider. Pt is a 58-year-old female with a PMH significant for?severe osteoporosis and L3 compression fracture s/p kyphoplasty on 02/21/2023 who presents to the ED for evaluation of lower back pain after lifting a bucket of water of water at home. Patient was down in the basement and bent over and attempted to lift a mop bucket filled with water. Reports hearing a crack, crack, crack in her back and immediately felt sharp pain in her lower back. Was able to walk to downstairs bedroom and lay down where she stayed the night. In the morning called out to her daughter who brought her her phone so she could call EMS. Patient denies any numbness and tingling in lower extremities or saddle anesthesia. No reportable lower extremity weakness. Denies loss of bowel or bladder function. Experienced some nausea with 1 episode of vomiting while in the ED, but no abdominal pain. Denies fever, chills. No chest pain/pressure, palpitations. Denies shortness of breath. Last year pt had similar episode when she suffered L3 compression fracture after trying to lift her daughter's [employer] box off the porch. Pt currently smokes 1+ packs daily and drinks 2+ drinks daily. Of note, the patient was noted to be retaining urine in the ED and Johnston catheter was placed. In the ED pt was tachycardic up to 104 and hypertensive up to 158/90, vitals otherwise WNL. Labs were grossly unremarkable and at baseline for patient. No leukocytosis. Stable H&H. No significant electrolyte abnormalities. Renal function WNL. Mild chronic transaminitis with bilirubin 1.5, AST 45, and alk-phos 150. UA negative for UTI. CT?of lumbar spine found new compression fracture deformities of T12, L1, L2, and L4 vertebral bodies. Also found diffuse osteoporosis and old L3 compression fracture s/p kyphoplasty with extrusion of cement into the L2-L3 disc space. Also found vertebral alignment maintained with the exception of chronic mild grade 1 anteriolisthesis as L5-S1. Lumbar spine MRI found no severe central canal stenosis and no severe foraminal stenosis, but showed lumbar spondylolysis, and new acute edematous compression fractures at T12, L1, L2, and L4. Pt was treated with oxycodone, diazepam, morphine, and Solu-Medrol. Pt will be admitted to the hospital for treatment and further evaluation of intractable lower back pain in the setting of multiple vertebral body fractures. 58-year-old woman presenting with intractable lower back pain secondary to acute T12, L1, L2 and L4 vertebral body compression fractures. The patient has a history of failed kyphoplasty with severe osteoporosis. She was seen evaluated by Physical therapy who recommended short-term rehab. At this point patient has not agreement. Will send with oxycodone, muscle relaxer and ibuprofen. Elevated LFTs. Likely secondary to alcohol abuse abdominal ultrasound showing hepatic steatosis. Hypokalemia. Likely due to decreased p.o. intake. Repleted and resolved Alcohol dependence. Patient reports drinking 1-2 drinks daily but denies any history of alcohol withdrawal. No evidence of withdrawal during hospitalization. Nicotine dependence. Patient reports smoking 1 pack of cigarettes a day. Offered nicotine replacement while inpatient. May continue nicotine patch outpatient Time Attestation Discharge Coordination Time (in mins): 45 Quality: Safe Use of Opioids Does Pt have an Active Cancer Diagnosis on the Problem List?: No Quality: Stroke Does the patient have a stroke diagnosis?: No Physical Exam Vital Signs: Vital Signs: Last Vital Signs Temp 98.1 F 11/26/23 07:46 Pulse 105 H 11/26/23 11:36 Resp 18 11/26/23 07:46 BP 125/77 11/26/23 11:36 Pulse Ox 92 11/26/23 11:36 O2 Del Method Room Air 11/26/23 07:46 BMI result Body Mass Index 20.2 Appearing in no acute distress head is normocephalic atraumatic eyes pupils are PERRLA sclera is anicteric mouth throat mucous membranes are intact and moist neck is supple no lymphadenopathy, no JVD noted lung sounds are clear to auscultation heart regular rate rhythm, clear S1, S2 positive bowel sounds, abdomen is soft, nontender neuro patient is alert x3, no focal deficits DS: Data Data Completed and Pending Labs on day of discharge: Laboratory Results - last 24 hr 11/26/23 08:14 Sodium 136 Potassium 4.0 D Chloride 99 Carbon Dioxide 26 Anion Gap 15 BUN 12 Creatinine 0.55 Estim Creat Clear Calc 103.7 Estimated GFR > 60 Random Glucose 122 H Calcium 9.4 Total Bilirubin 1.9 H Direct Bilirubin 1.1 H AST 29 ALT 18 Alkaline Phosphatase 136 H Total Protein 7.3 Albumin 3.4 L Discharge Plan Discharge Anticipated Discharge Date/Time: 11/26/23 15:31 Patient Disposition: Xfer Inpatient Rehab Fac Discharge Diagnosis: Intractable low back pain Vertebral body compression fracture Hypokalemia Referrals: [facility] [Outside] - [address] MD [Primary Care Provider] - 1 Week Discharge Medications: New nicotine 21 mg/24 hr Patch 24 Hour 21 mg transdermal DAILY Qty: 7 0RF omeprazole 20 mg Capsule,Delayed Release(Dr/Ec) 20 mg PO DAILY@0630 Qty: 30 0RF oxycodone 5 mg Tablet 5 mg PO TID Qty: 15 0RF Rx Instructions: Partial Fill upon patient request. cyclobenzaprine 5 mg Tablet 5 mg PO TID Qty: 15 0RF Continued acetaminophen [Tylenol] 325 mg tablet 650 mg PO Q6H PRN (Reason: pain) Qty: 45 0RF ibuprofen 600 mg tablet 600 mg PO Q6H PRN (Reason: Pain) Discharge Orders: Discharge Order (Routine); Ordered 11/26/23 Ordered By: Paulette Mercer Diet: Advance to usual diet Activity on Discharge: As tolerated Stand Alone Forms: Patient Portal Discharge page Print Language: Icelandic Care Plan Goals: Transfer to short-term rehab for physical therapy Health Concerns: Intractable low back pain Vertebral body compression fracture Hypokalemia Plan of Treatment: Follow-up with primary care provider as needed Take all medications as prescribed Assessment: See discharge summary
[2023-11-26 15:55] VITALS: BP 131/88; PULSE 68; RESP 12; TEMP 36.6; O2SAT 96
--- NOTE | 2023-11-26 16:30 | MHC.CM.PN ---
Patient preference for STR is [facility] they have received auth. The patient is discharged today. She will transport via BLS to [facility]. 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 All dc info has been sent to the STR. Patient will eat @ [facility] prior to 6pm pickup.
--- NOTE | 2023-11-27 18:23 | P.PICC_ITS ---
PICC Line Insertion NPICC Diagnosis: sepsis, renal failure FTT Indication: TPN Pertinent Labs: reviewed Technique: Following informed consent including risks, benefits and alternatives and using sterile technique including cap and mask, sterile gown, glove and drape, the right arm was prepped and draped in the usual sterile fashion of full barrier technique with G. Following completion of Chandler Protocol the skin and soft tissues were anesthetized with 1% Lidocaine plain. Using ultrasound guidance, right brachial vein access was obtained. Over an 0.018 wire through peel-away sheath, 5FR triple lumen PASV PICC line was positioned. Catheter length is 41cm internal length, ocm external length, for a total trimmed length of 41cm. The procedure was performed in rm 253. Tip verification was performed by Abimael Valentino with Sherlock 3CG. Tip located in SVC. Ultrasound was used to document vein patency and for needle entry. A formal ultrasound picture and cardiac rhythm strip was recorded. Vascular Project Asst has released the line for use and it is currently dressed with a StatLock, Tegaderm, and CHG disc. Verification has been performed for blood return and line patency. Arm Circumference: 28cm Equipment: Time Warden PowerPICC SOLO HF catheter with Sherlock 3CG tip Catheter Type: 5FR triple lumen PASV catheter Lot #: [id number]
== END 2023-11-26 18:23 | DRG 544 ==
LOC: HO.ED 17:16 → HO.EDOVER 18:37 → HO.S3 11-24 15:49
PROVIDERS: Nurse Practitioner Family; Physician Assistant Medical; Admitting Provider Student in an Organized Health Care Education/Training Program; Emergency Provider Emergency Medicine; PCP Internal Medicine; Visit Provider Nurse Practitioner Acute Care
DX: M48.55XA Collapsed vertebra, not elsewhere classified, thoracolumbar region, initial encounter for fracture (principal); M48.56XA Collapsed vertebra, not elsewhere classified, lumbar region, initial encounter for fracture; X50.0XXA Overexertion from strenuous movement or load, initial encounter; F17.210 Nicotine dependence, cigarettes, uncomplicated; F10.20 Alcohol dependence, uncomplicated; M81.0 Age-related osteoporosis without current pathological fracture; E87.6 Hypokalemia; Z71.6 Tobacco abuse counseling; Z79.899 Other long term (current) drug therapy
CPT/HCPCS: 36415; 72132; 72148; 76700; 80048; 80053; 80076; 81003; 85025; 97110; 97162; 99285; C1758; J1170; J1650; J2270; J2405; J2919

== ENCOUNTER → 2023-11-23 18:25 | Outpatient (BNV) | payer OTHER, SELFPAY | PROVIDERS: Admitting Provider Student in an Organized Health Care Education/Training Program; Emergency Provider Emergency Medicine; PCP Internal Medicine; Visit Provider Physician Assistant Medical | DX: S32.000A Wedge compression fracture of unspecified lumbar vertebra, initial encounter for closed fracture (principal) | CPT/HCPCS: 99223; 99232; 99239; 99499 ==

== ENCOUNTER 2023-12-12 10:41 | Outpatient (AMB) | payer OTHER, SELFPAY ==
--- NOTE | 2023-12-12 10:38 | MHC.OFFWIV ---
Intake Vital Signs 12/12/23 10:41 Height 5 ft 8 in BP 122/70 Blood Pressure Location Rt brachial Position Sitting Pulse 112 H Pulse Source Pulse Oximeter Temp 97.8 F Temp Source Oral Pulse Oximetry (%) 98 Oxygen Delivery Method Room Air Intake Visit Reasons: EP back pain/spine Intake Note: pt is here today for complaint of back pain located in the spinal area. patient states she had lfted something and stated she previosly had a back fracture Patient Tobacco Use Status: Current everyday Tobacco user Allergies No Known Allergies Allergy (Verified 12/12/23 10:42) Do you need a note to return to daycare/school/sports/work: No HPI HPI Comments History of Present Illness Details 58-year-old female presents today complaining a retractable back pain. She was seen at [facility] over 2 weeks ago for for compression fractures in her lumbar spine. She was sent to rehab for 2 weeks and now presents with a retractable pain, inability to eat and take fluids. [facility] Medical History Acute back pain with radiculopathy Papanicolaou smear declined Immunization refused Generalized anxiety disorder Smoker unmotivated to quit Alcohol use disorder Elevated liver enzymes Essential hypertension Colonoscopy refused Refused influenza vaccine Mixed dyslipidemia Social History Household Members: Spouse and Children Housing: House Do you presently have visiting nurse or other home services: No Alcohol intake: current Alcohol intake frequency: 3 or more drinks per day Patient Tobacco Use Status: Current everyday Tobacco user Tobacco use type: Cigarette Cigarette Packs Per Day: 1 Cigarettes Per Day: 20.0 Years Smoked: 40 & years e-Cigarette/Vaping Use: Never Used Second Hand Smoke Exposure: Yes Advance Directives Date on File: 04/16/20 service: No Current occupational status: unemployed Cognitive needs: No Hearing needs: No Vision needs: Yes Review of Systems Const All systems reviewed & are unremarkable except as noted in HPI and below Reports poor appetite and Reports weakness Eyes Reports no additional complaints ENT Reports no additional complaints Card Reports no additional complaints Resp Reports no additional complaints Musc Reports abnormal gait, Reports back pain, Reports limited range of motion and Reports muscle weakness Neuro Reports abnormal gait and Reports weakness Physical Exam Const General: acute distress severe and ill appearing Nutritional Appearance: thin Limitations: ambulation with walker Assessment & Plan Assessment & Plan (1) Compression fracture of lumbar vertebra: Code(s): S32.000A - Wedge compression fracture of unspecified lumbar vertebra, initial encounter for closed fracture Plan: Due to the for compression fractures in her a retractable pain the patient was sent to the emergency department. Plan See plan Coding Level of Care Code Est Pt Level 3 (73978) Diagnoses Compression fracture of lumbar vertebra S32.000A
[2023-12-12 10:41] VITALS: BP 122/70; PULSE 112; TEMP 36.6; O2SAT 98
== END 2023-12-12 11:20 | disposition home or self-care (01) ==
PROVIDERS: PCP Internal Medicine; Visit Provider Physician Assistant Medical
DX: S32.000A Wedge compression fracture of unspecified lumbar vertebra, initial encounter for closed fracture (principal)
CPT/HCPCS: 99213

== ENCOUNTER 2023-12-12 12:32 | Emergency (ER) | payer OTHER, SELFPAY ==
[2023-12-12 12:56] VITALS: BP 136/75; PULSE 120; RESP 16; TEMP 37; O2SAT 96; BMI 18.2
--- NOTE | 2023-12-12 12:56 | ED.GENADULT ---
HPI - General Adult General Chief complaint: Back Pain/Injury Stated complaint: Back pain Time Seen by Provider: 12/12/23 15:28 Source: patient Mode of arrival: ambulatory Limitations: no limitations History of Present Illness ED Provider: Meera MEJIA HPI narrative: This is a 58-year-old female history of anxiety, smoker, alcohol use disorder, hypertension, dyslipidemia recently diagnosed with multiple compression fractures in the lower back, she states that she was discharged from here to a short-term rehab, she has no longer rehab, she continues to have severe lower back pain pain is unchanged from the time she was here, she is taking Tylenol and muscle relaxers with little to no relief. She states she has been home crying over the past few days due to pain. Saw her PCP who tells her she should be evaluated in the ED for pain control. Patient is ambulatory with a walker. Denies numbness, tingling, urinary/bowel incontinence/retention, fevers, chills, abdominal pain, chest pain, shortness of breath, nausea, vomiting. Related Data Home Medications ?Medication ?Instructions ?Recorded ?Confirmed ibuprofen 600 mg tablet 600 mg PO Q6H PRN Pain 02/12/23 11/23/23 Previous Rx's ?Medication ?Instructions ?Recorded acetaminophen 325 mg tablet 650 mg (2 x 325 mg) PO Q6H PRN 01/22/23 (Tylenol) pain #45 tabs cyclobenzaprine 5 mg tablet 5 mg PO TID #15 tabs 11/26/23 acetaminophen 325 mg capsule 650 mg (2 x 325 mg) PO Q4H PRN 12/12/23 (Tylenol) pain #30 caps lidocaine 5 % topical patch 1 patch topical DAILY PRN pain #15 12/12/23 ea morphine 15 mg immediate release 15 mg PO Q6H PRN pain 5 days #10 12/12/23 tablet tabs Allergies Allergy/AdvReac Type Severity Reaction Status Date / Time No Known Allergies Allergy Verified 12/12/23 12:58 Review of Systems Review of Systems: Constitutional : No Weight loss, No Fever, No Chills, ENT/Mouth : No Hearing loss, No Ear Pain, No Nasal Congestion, No Sinus Pain, No Hoarseness, No sore throat, No Rhinorrhea, No Swallowing Difficulty Cardiovascular : No Chest Pain, No SOB Respiratory : No Cough, No Dyspnea Gastrointestinal : No Nausea, No Vomiting, No Diarrhea, No abdominal Pain, No Hematochezia, No Melena Genitourinary : No Dysuria, No Urinary Frequency, No Hematuria, No Urinary Incontinence, Musculoskeletal : positive back pain Skin : No Skin Lesions, No rash Neuro : No Weakness, No Numbness, No Paresthesias, no loss of bowel or bladder incontinence, no saddle anesthesia Yes all other systems are reviewed and are negative [facility] Past Medical History Attestation statement: The following information was validated with the patient. Source: old records reviewed and nursing notes reviewed Medical History Osteoporosis Acute back pain with radiculopathy Papanicolaou smear declined Immunization refused Generalized anxiety disorder Smoker unmotivated to quit Alcohol use disorder Elevated liver enzymes Essential hypertension Colonoscopy refused Refused influenza vaccine Mixed dyslipidemia Social History Social History Household Members: Spouse and Children Housing: House Do you presently have visiting nurse or other home services: No Alcohol intake: current Alcohol intake frequency: 3 or more drinks per day Patient Tobacco Use Status: Current everyday Tobacco user Tobacco use type: Cigarette Cigarette Packs Per Day: 1 Cigarettes Per Day: 20.0 Years Smoked: 40 & years e-Cigarette/Vaping Use: Never Used Second Hand Smoke Exposure: Yes Advance Directives: Yes Advance Directives Information Provided: No Advance Directives on File: No Advance Directives Date on File: 04/16/20 service: No Current occupational status: unemployed Cognitive needs: No Hearing needs: No Vision needs: Yes Physical Exam ED Vital Signs: Vital Signs - 24 hr 12/12/23 12:56 Temperature 98.6 F Pulse Rate 120 H Respiratory Rate 16 Blood Pressure 136/75 Pulse Oximetry 96 BMI result Body Mass Index 18.2 vss Appearance: Alert.? Oriented X3.? No acute distress.? Head: Normocephalic, atraumatic, no step-offs or deformities Eyes: Pupils equal, round and reactive to light.? ENT: Pharynx normal.? Neck: Normal inspection.? Neck supple.? CVS: Normal heart rate and rhythm.? Pulses normal.? Respiratory: No respiratory distress.? Breath sounds normal.? Abdomen: Soft and nontender.? Skin: Skin warm and dry.? Normal skin color.? Normal skin turgor.? Extremities: No lower extremity edema.? No calf ttp. 5/5 strength to bilateral upper and lower extremities Back: No midline tenderness, no C-spine tenderness, full range of motion, no CVA tenderness bilaterally + paraspinous muscle tenderness bilaterally from lumbar to coccyx region. Neuro: Oriented X 3.? No motor deficit.? No sensory deficit. CN 2-12 intact ambulating with walker steady gait. Course Course Course Narrative: This is a rapid medical exam performed by July Bingham BUFFING MACHINE TENDER: Additional HPI, ROS, PE not included below will be deferred to primary provider. Patient is a 58-year-old female presenting to the ED with severe back pain. Seen here on 11/22, dx with 4 vertebral compression fxs (T12-L3), admitted for pain control, then sent to rehab. Did small amount of PT after leaving rehab but states pain is unbearable. Using muscle relaxers and Tylenol without relief. Went to PCP today and referred here for possible admission for pain control. Plan: UA Reevaluation(s) Reevaluation #1: Patient medicated with morphine and Lidoderm patch. Will discharge her with pain control and specialty follow-up. Educated patient on diagnosis and treatment plan, answered all question, patient verbalizes understanding. At this time patient will be discharged home, advised to return with new or worsening symptoms. Educated on worrisome signs and symptoms and when to return. At this time I feel comfortable discharge home. Time: 15:56 Medical Decision Making Medical Decision Making MDM Narrative: 58-year-old female presents with lower back pain for the past 2 weeks, was seen here and diagnosed with or compression fractures. Only taking Tylenol and cyclobenzaprine. Reports pain is intolerable. Has not seen a specialist. On exam there is pain to the paraspinous muscles of the lumbar and coccyx region bilaterally. Positive bilateral straight leg raise No midline pain. Ambulating with a walker. No saddle paresthesias. Vital signs stable. History and physical exam likely acute on chronic lower back pain due to compression fractures. Unlikely cauda cord compression, epidural abscess. No new trauma unlikely new fractures or dislocations. Plan at this time pain control. No indication for new imaging no red flag symptoms. Patient has tolerated morphine in the past. Will medicate with this now Differential Diagnosis Differential Diagnoses: The differential diagnosis associated with the presentation includes History and physical exam likely acute on chronic lower back pain due to compression fractures. Unlikely cauda cord compression, epidural abscess. No new trauma unlikely new fractures or dislocations. Admission/Observation Consideration of admission/observation: Escalation of care including admission/observation considered No indication Independent Interpretation I performed an independent interpretation of an: CT Scan (Reviewed CT from 11/23/2023 showing compression fractures of T12, L1-L2 and L4.) Radiology Impression Discussion of test interpretation with radiology: I have reviewed the radiologist's reading. Independent Historian Clinical information obtained from an independent historian. History obtained from or confirmed by: Friend External Record Review External record reviewed: Inpatient record, Office record, Outpatient record, Prior outpatient labs, Prior outpatient radiology and Primary care record Tests considered The following testing was considered but not selected: No red flag symptoms no indication for MRI. Chronic Conditions Patient?s care impacted by: Other (htn, dyslipedemia, alcohol use do ) Discharge Plan Discharge Clinical Impression: Compression fracture of fifth lumbar vertebra Patient Disposition: Home, Self-Care Instructions: Acute Low Back Pain (ED) Additional Instructions: Take your medications as prescribed. If you were prescribed antibiotics today, it is important that you take your medication to their entirety, do not skip any doses, do not finish them early. Follow-up with your primary care provider this week. Return to the emergency department with new or worsening symptoms. Such as fevers, chills, chest pain, shortness of breath, nausea, vomiting, dizziness, headache, vision changes, lethargy In case of emergency call 911 A narcotic has been sent to your pharmacy please take this as prescribed. Do not take more than the prescribed dose. Narcotic medications can cause addiction. Please do not mix them with alcohol. Do not take them while driving or operating machinery. Do not take them with any other narcotics. Do not share them with friends or family. They can cause constipation. Take them only for severe pain. Follow-up with minimally invasive spine here at [facility] or [facility]. Numbers below. Prescriptions: New lidocaine 5 % adhesive patch,medicated 1 patch topical DAILY PRN (Reason: pain) Qty: 15 0RF Rx Instructions: leave on most painful area for up to 12 hrs morphine 15 mg tablet 15 mg PO Q6H PRN (Reason: pain) 5 Days Qty: 10 0RF Rx Instructions: Partial Fill upon patient request. acetaminophen [Tylenol] 325 mg capsule 650 mg PO Q4H PRN (Reason: pain) Qty: 30 0RF No Action acetaminophen [Tylenol] 325 mg tablet 650 mg PO Q6H PRN (Reason: pain) Qty: 45 0RF cyclobenzaprine 5 mg Tablet 5 mg PO TID Qty: 15 0RF ibuprofen 600 mg tablet 600 mg PO Q6H PRN (Reason: Pain) Referrals: [facility] [Provider Group] - [address] MD [Primary Care Provider] - 3 days Compa Ramos MD, PhD [Physician] - 1 day Print Language: Russian
[2023-12-12] MEDS: Morphine Sulfate Immed Release 15 MG TABLET PO (15:57)
[2023-12-12] MEDS: Acetaminophen 325 MG TABLET 650 MG PO (15:57)
[2023-12-12] MEDS: Lidocaine 4 % Patch ADH..PATCH 1 PATCH TRANSDERMA (15:58)
[2023-12-12 16:05] VITALS: BP 122/70; PULSE 110; RESP 16; TEMP 37; O2SAT 96
== END 2023-12-12 16:06 | disposition home or self-care (01) ==
PROVIDERS: Emergency Provider Student in an Organized Health Care Education/Training Program; PCP Internal Medicine
DX: M54.50 Low back pain, unspecified (principal); S32.050D Wedge compression fracture of fifth lumbar vertebra, subsequent encounter for fracture with routine healing; X58.XXXD Exposure to other specified factors, subsequent encounter; I10 Essential (primary) hypertension; E78.5 Hyperlipidemia, unspecified; F17.210 Nicotine dependence, cigarettes, uncomplicated
CPT/HCPCS: 99283

== ENCOUNTER 2023-12-17 10:53 | Outpatient (AMB) | payer OTHER, SELFPAY ==
--- NOTE | 2023-12-17 11:11 | MHC.OFFVIS ---
Vital Signs 12/17/23 11:12 Height 5 ft 8 in Weight 120 lb BMI 18.2 BP 100/68 Blood Pressure Location Lt brachial Position Sitting Respiration 14 Pulse 108 H Pulse Source Pulse Oximeter Pulse Oximetry (%) 94 Oxygen Delivery Method Room Air Intake Visit Reasons: INTRACTABLE LOW BACK FROM MULTIPLE FRACTURES Allergies No Known Allergies Allergy (Verified 12/20/23 14:25) Medication List - Last Reconciled 12/17/23 by Codi Floyd LPN acetaminophen (Tylenol) 650 mg (2 x 325 mg) PO Q6H PRN acetaminophen (Tylenol) 650 mg (2 x 325 mg) PO Q4H PRN cyclobenzaprine 5 mg PO TID ibuprofen 600 mg PO Q6H PRN lidocaine 5% 1 patch topical DAILY PRN morphine 15 mg PO Q6H PRN 5 days HPI HPI INTRACTABLE LOW BACK FROM MULTIPLE FRACTURES: Details: 58-year-old female presenting today for intractable low back pain from multiple fractures. The patient states that she has not started any treatment for osteoporosis. She reports to have pain in the back after moping the floor. She is using a walker for ambulation. [facility] Medical History (Updated 12/20/23 @ 17:10 by Mau Rojas MD) Osteoporosis Acute back pain with radiculopathy Papanicolaou smear declined Immunization refused Generalized anxiety disorder Smoker unmotivated to quit Alcohol use disorder Elevated liver enzymes Essential hypertension Colonoscopy refused Refused influenza vaccine Mixed dyslipidemia Social History Household Members: Spouse and Children Housing: House Do you presently have visiting nurse or other home services: No Alcohol intake: current Alcohol intake frequency: 3 or more drinks per day Patient Tobacco Use Status: Current everyday Tobacco user Tobacco use type: Cigarette Cigarette Packs Per Day: 1 Cigarettes Per Day: 20.0 Years Smoked: 40 & years e-Cigarette/Vaping Use: Never Used Second Hand Smoke Exposure: Yes Advance Directives: No Advance Directives Date on File: 04/16/20 service: No Current occupational status: unemployed Cognitive needs: No Hearing needs: No Vision needs: Yes Review of Systems Const All systems reviewed & are unremarkable except as noted in HPI and below Reports poor appetite and Reports weakness Eyes Reports no additional complaints ENT Reports no additional complaints Card Reports no additional complaints Resp Reports no additional complaints Musc Reports abnormal gait, Reports back pain, Reports limited range of motion and Reports muscle weakness Neuro Reports abnormal gait and Reports weakness Physical Exam Vital Signs: Last Vital Signs Pulse 108 H 12/17/23 11:12 Resp 14 12/17/23 11:12 BP 100/68 12/17/23 11:12 Pulse Ox 94 12/17/23 11:12 Oxygen Delivery Method Room Air 12/17/23 11:12 BMI result Body Mass Index 18.2 Const General: acute distress severe and ill appearing Nutritional Appearance: thin Limitations: ambulation with walker Assessment & Plan Assessment & Plan (1) Compression fracture of lumbar vertebra: Code(s): S32.000A - Wedge compression fracture of unspecified lumbar vertebra, initial encounter for closed fracture Category: Medical (2) Osteoporosis: Code(s): M81.0 - Age-related osteoporosis without current pathological fracture Category: Medical Plan She has repeat multiple compression fractures at T12, L1, L 2 and L4. Most referred pain is in the lower back area. I will prescribe thoracolumbar brace for her I also provided her with the script for cyclobenzaprine 90 tablets and percocet 5-325 mg 60 tablets for pain control till we have a definitive management plan I also provided her a work note to stay out of work while we schedule her for kyphoplasty and bracing. I reiterated the need for her to initiate biphosphonate therapy to prevent further compression fractures and deformities of her spine in setting of osteoporosis. She has not heard about treatment from her primary care provider. I will refer her to Rheumatology for consideration of osteoporosis workup and treatment. Orders: Referrals Rheumatology Referral M81.0 - Age-related osteoporosis without current pathological fracture Medications: New oxycodone-acetaminophen 5-325 mg Partial Fill upon patient request. 1 tab PO Q8H PRN 60 tabs 0RF pain Changed From cyclobenzaprine 5 mg PO TID 15 tabs 0RF To cyclobenzaprine 5 mg PO TID PRN 90 tabs 2RF muscle spasm Discontinued morphine Partial Fill upon patient request. Discontinued Reason: Duplicate 15 mg PO Q6H 5 days PRN 10 tabs 0RF pain Patient Instructions: Scribed for Dr. Rojas by Lj Barraza, medical office secretary, on 12/17/2023. I, Dr. Rojas, have personally reviewed and agree with the information entered by the scribe Coding Level of Care Code Est Pt Level 4 (05788) Diagnoses Compression fracture of lumbar vertebra S32.000A Osteoporosis M81.0
[2023-12-17 11:12] VITALS: BP 100/68; PULSE 108; RESP 14; O2SAT 94; BMI 18.2
== END 2023-12-17 11:48 | disposition home or self-care (01) ==
LOC: HO.PMC 10:53
PROVIDERS: PCP Internal Medicine; Visit Provider Internal Medicine
DX: S32.000A Wedge compression fracture of unspecified lumbar vertebra, initial encounter for closed fracture (principal); M81.0 Age-related osteoporosis without current pathological fracture
CPT/HCPCS: 99214

== ENCOUNTER → 2023-12-17 10:53 | Outpatient (BNVA) | payer OTHER, SELFPAY | PROVIDERS: PCP Internal Medicine; Visit Provider Internal Medicine ==

== ENCOUNTER 2023-12-20 14:04 | Emergency (ER) | payer OTHER, SELFPAY ==
[2023-12-20 14:20] VITALS: BP 103/75; BP 130/80; PULSE 114; PULSE 130; RESP 20; TEMP 36.8; O2SAT 92; O2SAT 94; BMI 23.4
--- NOTE | 2023-12-20 14:55 | ED.BACK ---
HPI - Back Pain/Injury General Chief Complaint: Back Pain/Injury Stated Complaint: PAIN,H/O SPINE FX,WAITING FOR SURG,NONAMB PER EMS Time Seen by Provider: 12/20/23 14:11 Source: patient Mode of arrival: EMS Limitations: no limitations History of Present Illness ED Provider: Jomar VILLANUEVA Narrative: 58-year-old female with chronic back pain, known recent lumbar compression fracture currently awaiting surgical intervention, presents with ongoing back pain. Patient states she saw her surgeon on Sunday, was prescribed Percocet and a muscle relaxant. Patient is yet to pickling operator her prescriptions from the pharmacy. Patient denies new injury. Patient denies radiation of pain down either lower extremity, paresthesia, weakness of lower extremity, bowel incontinence, urinary retention. Patient states she is ambulatory, however can only walk short distances at a time. Related Data Home Medications ?Medication ?Instructions ?Recorded ?Confirmed ibuprofen 600 mg tablet 600 mg PO Q6H PRN Pain 02/12/23 12/17/23 Previous Rx's ?Medication ?Instructions ?Recorded acetaminophen 325 mg tablet 650 mg (2 x 325 mg) PO Q6H PRN 01/22/23 (Tylenol) pain #45 tabs acetaminophen 325 mg capsule 650 mg (2 x 325 mg) PO Q4H PRN 12/12/23 (Tylenol) pain #30 caps lidocaine 5 % topical patch 1 patch topical DAILY PRN pain #15 12/12/23 ea cyclobenzaprine 5 mg tablet 5 mg PO TID PRN muscle spasm #90 12/17/23 tabs oxycodone-acetaminophen 5 mg-325 1 tab PO Q8H PRN pain #60 tabs 12/17/23 mg tablet meloxicam 15 mg tablet 15 mg PO DAILY #7 tabs 12/20/23 Allergies Allergy/AdvReac Type Severity Reaction Status Date / Time No Known Allergies Allergy Verified 12/20/23 14:25 Review of Systems Review of Systems: Yes all other systems are reviewed and are negative Constitutional: Constitutional: Denies fever(s) Musculoskeletal: Musculoskeletal: Reports abnormal gait, Reports back pain, Denies numbness and Denies tingling Neurologic: Reports abnormal gait, Denies numbness and Denies tingling Psychiatric: Psychiatric: Reports irritability Comments: Overall cooperative, frustrated with her pain PMFSH Past Medical History Attestation statement: The following information was validated with the patient. Medical History Osteoporosis Acute back pain with radiculopathy Papanicolaou smear declined Immunization refused Generalized anxiety disorder Smoker unmotivated to quit Alcohol use disorder Elevated liver enzymes Essential hypertension Colonoscopy refused Refused influenza vaccine Mixed dyslipidemia Social History Social History Household Members: Spouse and Children Housing: House Do you presently have visiting nurse or other home services: No Alcohol intake: current Alcohol intake frequency: 3 or more drinks per day Patient Tobacco Use Status: Current everyday Tobacco user Tobacco use type: Cigarette Cigarette Packs Per Day: 1 Cigarettes Per Day: 20.0 Years Smoked: 40 & years e-Cigarette/Vaping Use: Never Used Second Hand Smoke Exposure: Yes Advance Directives: No Advance Directives Date on File: 04/16/20 service: No Current occupational status: unemployed Cognitive needs: No Hearing needs: No Vision needs: Yes Physical Exam Vital Signs: Vital Signs: Last Vital Signs Temp 98.2 F 12/20/23 14:20 Pulse 114 H 12/20/23 14:20 Resp 20 12/20/23 14:20 BP 103/75 12/20/23 14:20 Pulse Ox 92 12/20/23 14:20 O2 Del Method Room Air 12/20/23 14:20 BMI result Body Mass Index 23.4 Const: Other: Alert, appears older than stated age General: cooperative Eyes: General: appearance normal, both eyes and all related structures Pupils: Equal, round and reactive pupils present Resp: Effort & Inspection: normal respiratory effort Cardio: Other: Normal peripheral perfusion Skin: General skin exam: no rashes or lesions noted Neuro: Other: Ambulates with antalgic gait, sensation intact Cranial nerves: Yes Equal, round and reactive pupils present Extrem: Other: Strength 5/5 bilateral lower extremities with resistance Medical Decision Making Medical Decision Making MDM Narrative: 58-year-old female with chronic back pain, known recent lumbar compression fracture currently awaiting surgical intervention, presents with ongoing back pain. Patient states she saw her surgeon on Sunday, was prescribed Percocet and a muscle relaxant. Patient is yet to pickling operator her prescriptions from the pharmacy. Patient denies new injury. Patient denies radiation of pain down either lower extremity, paresthesia, weakness of lower extremity, bowel incontinence, urinary retention. Patient states she is ambulatory, however can only walk short distances at a time. Problem: Known compression fracture, chronic pain History: Per patient I have considered the following differential diagnoses:Lumbar compression fracture, lumbar radiculopathy, sciatica, cauda equina, SEA Plan: Patient here with poorly controlled pain, she is yet to pickling operator her prescriptions. I advised the patient that we can manage her discomfort here, but we will not be prescribing any additional narcotic or muscle relaxant given she has 2 prescriptions pending at the pharmacy. I am going to add on meloxicam, as this will offer further benefit to her pain regimen. She has not having radicular symptoms, she also does not have red flag signs symptoms concerning for cord compression. She also has no risk factors for an epidural abscess. There is no indication for additional imaging, as there was no new injury. No indication for labs. Differential Diagnosis Differential Diagnoses: The differential diagnosis associated with the presentation includes Lumbar compression fracture, lumbar radiculopathy, sciatica, cauda equina, SES Discharge Plan Discharge Clinical Impression: Closed compression fracture of lumbar vertebra, Chronic back pain Patient Disposition: Home, Self-Care Instructions: Vertebral Compression Fracture (ED), Chronic Back Pain (DC) Additional Instructions: You were seen for your ongoing back pain related to your known lumbar compression fracture. Unfortunately, you need to follow up with your surgeon. You were medicated in the emergency department for your pain. You have pain medication prescribed to, you need to pick it up at the pharmacy. I am also adding an anti-inflammatory, the medications, meloxicam. Take this medication as directed with your current pain regimen. Prescriptions: New meloxicam 15 mg tablet 15 mg PO DAILY Qty: 7 0RF Rx Instructions: Take with food. Do not take with any additional anti-inflammatories. No Action acetaminophen [Tylenol] 325 mg tablet 650 mg PO Q6H PRN (Reason: pain) Qty: 45 0RF lidocaine 5 % adhesive patch,medicated 1 patch topical DAILY PRN (Reason: pain) Qty: 15 0RF Rx Instructions: leave on most painful area for up to 12 hrs acetaminophen [Tylenol] 325 mg capsule 650 mg PO Q4H PRN (Reason: pain) Qty: 30 0RF ibuprofen 600 mg tablet 600 mg PO Q6H PRN (Reason: Pain) cyclobenzaprine 5 mg tablet 5 mg PO TID PRN (Reason: muscle spasm) Qty: 90 2RF oxycodone-acetaminophen 5-325 mg tablet 1 tab PO Q8H PRN (Reason: pain) Qty: 60 0RF Rx Instructions: Partial Fill upon patient request. Print Language: Icelandic
[2023-12-20 16:00] VITALS: BP 110/69; PULSE 116; TEMP 37.1; O2SAT 92
[2023-12-20] MEDS: oxyCODONE HCl Immed Release 5 MG TABLET PO (16:15)
[2023-12-20] MEDS: methocarbamoL 750 MG TABLET PO (16:16)
--- NOTE | 2023-12-20 16:23 | PC.NURSE ---
patient medicated per SEP for back pain. Patient was able to get OOB without assistance and independently ambulated to/from bathroom using walker w/ this RNs supervision. gait steady.
[2023-12-20 17:08] VITALS: BP 100/63; PULSE 110; RESP 16; TEMP 37; O2SAT 92
== END 2023-12-20 18:26 | disposition home or self-care (01) ==
PROVIDERS: Emergency Provider Emergency Medicine
DX: G89.29 Other chronic pain (principal); M54.9 Dorsalgia, unspecified; S32.009D Unspecified fracture of unspecified lumbar vertebra, subsequent encounter for fracture with routine healing; X58.XXXD Exposure to other specified factors, subsequent encounter
CPT/HCPCS: 99283

== ENCOUNTER 2024-03-06 11:48 | Outpatient (REF) | payer OTHER, SELFPAY ==
[2024-03-06 14:15] LABS: Parathyroid Hormone Intact 41.1 pg/mL (8.7-77.1)
[2024-03-06 14:18] LABS: Alanine Aminotransferase 38 U/L (0-31); Albumin Level 3.8 g/dL (3.5-5.0); Alkaline Phosphatase 197 U/L (39-117); Anion Gap 14 (12-20); Aspartate Amino Transferase 140 U/L (5-31); Bilirubin Total 2.5 mg/dL (0.0-1.0); Blood Urea Nitrogen 5 mg/dL (9-16); Calcium 9.4 mg/dL (8.4-10.2); Carbon Dioxide 27 mmol/L (22-29); Chloride 101 mmol/L (96-108); Estimated Glomerular Filt Rate > 60; Glucose Random 141 mg/dL (60-115); Magnesium 1.5 mg/dL (1.6-2.6); Phosphorus 3.1 mg/dL (2.7-4.5); Potassium 3.3 mmol/L (3.3-5.1); Sodium 139 mmol/L (135-145); TSH reflex Free T4 2.23 uIU/mL (0.32-4.0); Total Protein 8.8 g/dL (6.5-8.0)
[2024-03-12 12:53] LABS: Prot Elec - Albumin 3.8 g/dL (3.8-4.8); Prot Elec - Alpha1 0.3 g/dL (0.2-0.3); Prot Elec - Alpha2 0.7 g/dL (0.5-0.9); Prot Elec - Beta 1 0.6 g/dL (0.4-0.6); Prot Elec - Beta 2 1.2 g/dL (0.2-0.5); Prot Elec - Gamma 1.7 g/dL (0.8-1.7); Prot Elec - Total Protein 8.3 g/dL (6.1-8.1)
[2024-03-13 21:28] LABS: IgA 1264 mg/dL (70-320); IgG 2004 mg/dL (600-1540); IgM 223 mg/dL (50-300)
== END 2024-03-06 11:49 | disposition home or self-care (01) ==
LOC: HO.LAB 11:48
PROVIDERS: PCP Internal Medicine; Visit Provider Student in an Organized Health Care Education/Training Program
DX: M81.0 Age-related osteoporosis without current pathological fracture (principal)
CPT/HCPCS: 36415; 80053; 82306; 82784; 83735; 83970; 84100; 84165; 84443; 86334

== ENCOUNTER 2024-03-06 11:48 | Outpatient (AMB) | payer OTHER, SELFPAY ==
[2024-03-06 11:54] VITALS: BP 102/62; PULSE 97; O2SAT 120; BMI 22.5
--- NOTE | 2024-03-06 11:54 | MHC.OFFVIS ---
Vital Signs 03/06/24 11:54 Height 5 ft Weight 115 lb BMI 22.5 BP 102/62 Blood Pressure Location Lt brachial Position Sitting Pulse 97 Pulse Source Pulse Oximeter Pulse Oximetry (%) 120 H Oxygen Delivery Method Room Air Intake Visit Reasons: Osteoporosis Intake Note: Patient presents with Osteoporosis symptoms, and fractured spine that happened in the beginning of December. Patient needs information on finds to [employer] at fax3 . Allergies No Known Allergies Allergy (Verified 03/06/24 11:57) Medication List - Last Reconciled 03/06/24 by Ismael Benitez MD acetaminophen (Tylenol) 650 mg (2 x 325 mg) PO Q6H PRN acetaminophen (Tylenol) 650 mg (2 x 325 mg) PO Q4H PRN back brace As directed cyclobenzaprine 5 mg PO TID PRN ibuprofen 600 mg PO Q6H PRN lidocaine 5% 1 patch topical DAILY PRN meloxicam 15 mg PO DAILY oxycodone-acetaminophen 5-325 mg 1 tab PO Q8H PRN HPI Comments Details: This is a 59-year-old female with osteoporosis who presents for evaluation. Last year patient fractured her spine and had kyphoplasty. This year, while patient was in herself, she was carrying a bucket of water, she felt multiple bones crack in her spine. She broke 4 more vertebrae. Patient had menopause in her 30s. She was fitted with a back brace. She has diffuse back pain. Difficulty walking long distances. Has to use a walker. [facility] Medical History Osteoporosis Acute back pain with radiculopathy Papanicolaou smear declined Immunization refused Generalized anxiety disorder Smoker unmotivated to quit Alcohol use disorder Elevated liver enzymes Essential hypertension Colonoscopy refused Refused influenza vaccine Mixed dyslipidemia Social History Household Members: Spouse and Children Housing: House Do you presently have visiting nurse or other home services: No Alcohol intake: current Alcohol intake frequency: 3 or more drinks per day Patient Tobacco Use Status: Current everyday Tobacco user Tobacco use type: Cigarette Cigarette Packs Per Day: 1 Cigarettes Per Day: 20.0 Years Smoked: 40 & years e-Cigarette/Vaping Use: Never Used Second Hand Smoke Exposure: Yes Advance Directives Date on File: 04/16/20 service: No Current occupational status: unemployed Cognitive needs: No Hearing needs: No Vision needs: Yes Review of Systems Const Reports weight loss Musc Reports back pain Physical Exam Vital Signs: Last Vital Signs Pulse 97 03/06/24 11:54 BP 102/62 03/06/24 11:54 Pulse Ox 120 H 03/06/24 11:54 Oxygen Delivery Method Room Air 03/06/24 11:54 BMI result Body Mass Index 22.5 Const General: cooperative, healthy appearing and comfortable Nutritional Appearance: thin Orientation/consciousness: patient oriented x3 Limitations: ambulation with walker HEENT Head: Yes normocephalic and Yes atraumatic Resp Effort & Inspection: normal respiratory effort and able to speak in complete sentences Auscultation: clear to auscultation bilaterally Skin General skin exam: no rashes or lesions noted Neuro General: patient oriented x3 Extrem Other: Kyphotic Minimal osteoarthritic changes of both hands with no active synovitis Normal nailfold capillaroscopy Results Reviewed Results Reviewed: Ordering Physician: Cecilia Leal CNP Date of Service: 11/23/23 Procedure(s): MR lumbar spine wo con Accession Number(s): [id number] cc: Cecilia Leal CNP; Anupama Lane MD~ MR LUMBAR SPINE WITHOUT CONTRAST CLINICAL INFORMATION: Question cord compression. Compression fractures on CT. Retention. COMPARISON: Lumbar spine CT 11/23/2023 and lumbar spine MRI 02/12/2023. TECHNIQUE: MRI of the lumbar spine was obtained using routine sequences without contrast. FINDINGS: Transitional anatomy is again noted presuming partial sacralization of L5 which shares a completely developed intervertebral disc with S1. There are hypoplastic ribs at the lowermost thoracic type segment using this counting system. Please correlate with plain films prior to any percutaneous or surgical intervention. There is a new edematous biconcave compression fracture at T12 exhibiting 20% vertebral body height loss and no significant retropulsion. There is a new edematous inferior endplate compression fracture at L1 exhibiting 20% inferior endplate height loss. There is a new edematous upper endplate compression fracture at L2 exhibiting 10% upper endplate height loss. Chronic compression fracture at L3 status post vertebral body augmentation. There is mild marrow edema along the left upper L3 endplate. There is a new edematous upper endplate compression fracture at L4 exhibiting 15% upper endplate height loss. Conus terminates at the L1 level. Disc lines are preserved. There is disc desiccation at all lumbar levels. L1-L2: Diffuse disc osteophyte complex and mild bilateral facet arthropathy. No central canal stenosis. Disc osteophyte and facet arthropathy result in mild to moderate bilateral foraminal encroachment. L2-L3: There is a diffuse annular disc bulge and there is mild bilateral facet arthropathy and ligamentum flavum thickening. There is no central canal stenosis. There is mild foraminal encroachment bilaterally. L3-L4: There is a diffuse annular disc bulge and there is severe bilateral facet arthropathy and ligamentum flavum thickening. Findings in concert result in mild to moderate bilateral foraminal encroachment without exiting nerve root compression. L4-L5: Diffuse annular disc bulge and moderate bilateral facet arthropathy and ligamentum flavum thickening. No central canal stenosis and no foraminal stenosis. L5-S1: Diffuse annular disc bulge and bilateral facet arthropathy. No central canal stenosis and no foraminal stenosis. MR/MR lumbar spine wo con IMPRESSION: - Transitional anatomy is again noted presuming partial sacralization of L5 which shares a completely developed intervertebral disc with S1. There are hypoplastic ribs at the lowermost thoracic type segment using this counting system. Please correlate with plain films prior to any percutaneous or surgical intervention. - There are new acute edematous compression fractures at the T12, L1, L2, and L4 levels. - The patient is status post vertebral body augmentation at L3 where there is a chronic biconcave compression fracture and there is mild bone marrow edema along the left upper endplate. - Lumbar spondylosis. No severe central canal stenosis and no severe foraminal stenosis within the lumbar spine. Dictated By: Tavares Munson MD Ordering Physician: Mau Rojas MD Results: Date of Service: 02/20/23 Follow Up: Procedure(s): XR DEXA axial skeleton Accession Number(s): [id number] cc: Mau Rojas MD~ EXAMINATION: BONE DENSITOMETRY CLINICAL INDICATION: Wedge compression fracture of unspecified lumbar vertebra. COMPARISON: This is the patient's baseline examination. TECHNIQUE: Using a [employer] DXA System (software version: 13.1) manufactured by [employer], dual-energy x-ray absorptiometry was performed of the lumbar spine and left hip. The images are of good technical quality. Summary results are attached. FINDINGS: LEFT FEMUR, NECK: BMD 0.616 g/cm2, Z-score -1.6, T-score -3.0, osteoporosis. LEFT FEMUR, TOTAL: BMD 0.646 g/cm2, Z-score -1.8, T-score -2.9, osteoporosis. AP SPINE L1-L4 (excluding L3): The data of L1-L4 has been changed to exclude the L3 vertebral body, because degenerative sclerosis at this level may cause overestimation of lumbar spine density. BMD 0.690 g/cm2, Z-score -2.5, T-score -4.0, osteoporosis. IDENTIFIED RISK FACTORS: Menopause, history of fracture (adult). HISTORY OF FRACTURE: Spine. MEDICATIONS: None listed. MM/XR DEXA axial skeleton IMPRESSION: 1. DIAGNOSIS: Severe osteoporosis based on the lowest T-score value of -4.0 in the lumbar spine and history of fracture applying World Health Organization criteria. Assessment & Plan Assessment & Plan (1) Osteoporosis: Comment: L3 fractured 2022 T12, L1, L2, L4 fractures 11/2023 Code(s): M81.0 - Age-related osteoporosis without current pathological fracture Category: Medical Qualifiers: Osteoporosis type: age-related Presence of current pathological fracture: with current pathological fracture Encounter type: initial encounter Qualified Code(s): M80.00XA - Age-related osteoporosis with current pathological fracture, unspecified site, initial encounter for fracture Plan: This is a 59-year-old female who was referred for evaluation of osteoporosis. Patient has severe osteoporosis, she fractured her L3 in 2022 and fractured for more vertebrae in 2023. Has not received any treatment for osteoporosis. Discussed nature of osteoporosis. Patient had early menopause, in her 30s. Which is likely a risk. She continues to smoke. Advised patient to quit smoking. I will order labs to evaluate for secondary causes of osteoporosis. Discussed different treatment options. I think given patient's severe osteoporosis and numerous vertebral compression fractures she should receive potent anabolic agent. I do not think antiresorptives such as Reclast, Prolia, alendronate would be as effective. She will not be able to self inject daily Forteo or Tymlos. We discussed avidity. Discussed the black box warning of slightly increased cardiovascular events with Evenity. I think patient's main cardiovascular risk is her smoking. There is no history of cardiovascular events, no history of diabetes or dyslipidemia. I think in her case the benefit of avidity outweighs the minor risk. She is agreeable to proceed. We will start prior authorization for Evenity (2) Compression fracture of lumbar vertebra: Code(s): S32.000A - Wedge compression fracture of unspecified lumbar vertebra, initial encounter for closed fracture Category: Medical Qualifiers: Encounter type: initial encounter Lumbar vertebra fracture level: L2 Qualified Code(s): S32.020A - Wedge compression fracture of second lumbar vertebra, initial encounter for closed fracture (3) Smoker unmotivated to quit: Code(s): F17.200 - Nicotine dependence, unspecified, uncomplicated Category: Social Hx Plan: Discussed numerous adverse health effects associated with smoking. Including worsening osteoporosis. Patient is still unmotivated to quit Plan I spent 47 minutes reviewing patient's chart, evaluating patient, ordering diagnostic workup, counseling patient and documenting in the chart Orders: Orders Parathyroid Hormone Intact Today M81.0 - Age-related osteoporosis without current pathological fracture Collagen Type I C-Telopeptide Today M81.0 - Age-related osteoporosis without current pathological fracture Comprehensive Met. Panel Today M81.0 - Age-related osteoporosis without current pathological fracture Magnesium Today M81.0 - Age-related osteoporosis without current pathological fracture Phosphorus Today M81.0 - Age-related osteoporosis without current pathological fracture TSH reflex Free T4 Today M81.0 - Age-related osteoporosis without current pathological fracture Vitamin D 25-OH Total Today M81.0 - Age-related osteoporosis without current pathological fracture Immunofixation Pnl, Serum Today M81.0 - Age-related osteoporosis without current pathological fracture Protein Electrophoresis, Serum Today M81.0 - Age-related osteoporosis without current pathological fracture Coding Level of Care Code New Pt Level 4 (92288) Diagnoses Age-related osteoporosis with current pathological fracture, initial encounter M80.00XA Osteoporosis type: age-related Presence of current pathological fracture: with current pathological fracture Encounter type: initial encounter Compression fracture of L2 vertebra, initial encounter S32.020A Encounter type: initial encounter Lumbar vertebra fracture level: L2 Smoker unmotivated to quit F17.200
== END 2024-03-06 12:43 | disposition home or self-care (01) ==
PROVIDERS: Visit Provider Student in an Organized Health Care Education/Training Program
DX: M80.00XA Age-related osteoporosis with current pathological fracture, unspecified site, initial encounter for fracture (principal); S32.020A Wedge compression fracture of second lumbar vertebra, initial encounter for closed fracture; F17.200 Nicotine dependence, unspecified, uncomplicated
CPT/HCPCS: 99204

== ENCOUNTER 2024-04-02 12:59 | Outpatient (AMB) | payer OTHER, SELFPAY ==
[2024-04-02 14:23] VITALS: BP 90/60; PULSE 110; O2SAT 98; BMI 21.9
--- NOTE | 2024-04-02 14:23 | MHC.PC.OV ---
Vital Signs 04/02/24 14:23 Height 5 ft Weight 112 lb BMI 21.9 BP 90/60 Blood Pressure Location Lt brachial Position Sitting Pulse 110 H Pulse Source Pulse Oximeter Pulse Oximetry (%) 98 Oxygen Delivery Method Room Air Intake Visit Reasons: recurrent back pain Intake Note: Pt is here today for recurrent back pain Allergies No Known Allergies Allergy (Verified 04/07/24 04:15) Medication List - Last Reconciled 04/07/[address] MD back brace As directed cyclobenzaprine 5 mg PO TID PRN naproxen sodium (Aleve) 220 mg PO BID PRN Tobacco use date assessed: 04/02/24 Dental Screening Dental Screen Date: 04/02/24 Did you have a dental visit in the last 12 months?: No Did you have a dental problem in the last 6 months where you did not have access to dental care?: No Was dental information given to patient?: Patient declined HPI recurrent back pain HPI Details 59 [id number], with history of anxiety, smoker, alcohol use disorder, hypertension, dyslipidemia , with repeat multiple compression fractures at T12, L1, L 2 and L4. Today for follow-up. Most referred pain is in the lower back area . she states that she was discharged from a short-term rehab, continues to have severe lower back pain pain is unchanged from the time she was here. She is taking Tylenol and muscle relaxers with little to no relief. She states she has been home crying over the past few days due to pain, family not very supportive. She is accompanied today by her friend Patient is ambulatory with a walker. Denies numbness, tingling, urinary/bowel incontinence/retention, fevers, chills, abdominal pain, chest pain, shortness of breath, nausea, vomiting. She was seen at [facility] who has prescribed her cyclobenzaprine and Percocet to be taken as needed but patient needs definitive management. She was given a note to stay out of work why they schedule her for kyphoplasty and bracing. Patient however did not get the brace that was prescribed as she could not afford it. She also has been referred to rheumatology clinic to start treatment for osteoporosi . She was seen by Rheumatology at the end of February and secondary workup was done for evaluation of osteoporosis, proposed Evenity for treatment, still awaiting results of prior authorization. Patient states that she has been having frequent anxiety attacks and depressed mood due to her constant pain and inability to work. Patient states that her family is not very supportive and treat her like trash . She continues to drink vodka daily and continues to smoke cigarettes. [facility] Medical History Depression with anxiety Osteoporosis Acute back pain with radiculopathy Papanicolaou smear declined Immunization refused Generalized anxiety disorder Smoker unmotivated to quit Alcohol use disorder Elevated liver enzymes Essential hypertension Colonoscopy refused Refused influenza vaccine Mixed dyslipidemia Social History Household Members: Spouse and Children Housing: House Do you presently have visiting nurse or other home services: No Alcohol intake: current Alcohol intake frequency: 3 or more drinks per day Patient Tobacco Use Status: Current everyday Tobacco user Tobacco use type: Cigarette Cigarette Packs Per Day: 1 Cigarettes Per Day: 20.0 Years Smoked: 40 & years e-Cigarette/Vaping Use: Never Used Second Hand Smoke Exposure: Yes Advance Directives Date on File: 04/16/20 service: No Current occupational status: unemployed Cognitive needs: No Hearing needs: No Vision needs: Yes Questionnaire PHQ-9 Over the last 2 weeks, how often have you been bothered by any of the following problems? 1. Little interest or pleasure in doing things: nearly every day 2. Feeling down, depressed, or hopeless: nearly every day 3. Trouble falling or staying asleep, or sleeping too much: more than half the days 4. Feeling tired or having little energy: nearly every day 5. Poor appetite or overeating: nearly every day 6. Feeling bad about yourself - or that you are a failure or have let yourself or your family down: not at all 7. Trouble concentrating on things, such as reading the newspaper or watching television: not at all 8. Moving or speaking so slowly that other people could have noticed. Or the opposite - being so fidgety or restless that you have been moving around a lot more than usual: not at all 9. Thoughts that you would be better off or of hurting yourself in some way: not at all Total score: 14 Depression Screening Interpretation: Positive Depression Screening Follow-up: Community Mental Health Worker F/U Depression Screening Done: Yes Source: Developed by Drs. Phil Morris, Brandi Beltran, Darien Bhatia and colleagues, with an educational max from [employer]. Thrive Questionnaire Date Thrive assessed: 11/24/23 AUDIT C Alcohol Use Questionnaire (AUDIT-C) 1. How often do you have a drink containing alcohol?: 4 or more times a week 2. How many drinks containing alcohol do you have on a typical day when you are drinking?: 3 or 4 (vodka ) 3. How often do you have six or more drinks on one occasion?: Less than monthly Total Score: 6 Score Reviewed/Action Taken: Yes Review of Systems Const All systems reviewed & are unremarkable except as noted in HPI and below GI Reports no additional complaints Denies difficulty voiding and Denies urinary incontinence Musc Reports as per HPI Neuro Reports no additional complaints Psych Reports as per HPI Endo Reports no additional complaints Arnold/Lymph Denies easy bleeding and Denies easy bruising Physical exam (Primary Care) Vital Signs: Last Vital Signs Pulse 110 H 04/02/24 14:23 BP 90/60 04/02/24 14:23 Pulse Ox 98 04/02/24 14:23 Oxygen Delivery Method Room Air 04/02/24 14:23 BMI result Body Mass Index 21.9 Tobacco/Smoking Status: Tobacco use Status Tobacco use date assessed 04/02/24 04/02/24 14:30 Patient Tobacco Use Status Current everyday Tobacco 04/02/24 14:30 Tobacco use type Cigarette 04/02/24 14:30 e-Cigarette/Vaping Use Never Used 04/02/24 14:30 PHQ-9: PHQ-9 Score PHQ-9: Total score 14 04/02/24 14:59 Depression Screening Interpretation: Positive Depression Screening Follow-up: Community Mental Health Worker F/U Thrive Assessment: Date of Thrive Assessment Date Thrive assessed 11/24/23 04/02/24 14:30 Const Other: Alert oriented x3 in mild pain distress, ambulatory with a slow gait reviewed use of a walker, friend is accompanying her on this visit Orientation/consciousness: patient oriented x3 [facility] General nose exam: Normal external nose present Face and sinus: Yes face symmetric Mouth: Normal oral and palatal mucosa present, oropharynx normal and moist mucous membranes Neck Neck: Yes full ROM, Yes no lymphadenopathy and Yes supple Resp Auscultation: clear to auscultation bilaterally Cardio Other: S1-S2 present regular rate and rhythm GI Palpation (GI): Soft to palpation, nontender, no guarding and no masses Auscultation: normal bowel sounds Back/Spine/Pelvis Other: Tenderness on palpation over lumbosacral spine and paraspinal muscles bilaterally, equivocal straight leg less than sign bilaterally Skin General skin exam: no rashes or lesions noted Neuro General: patient oriented x3, tone normal, moves all extremities, Normal light touch and pain sensation, no focal motor deficits and CN's II-XI intact bilaterally Deep tendon reflexes (DTR's): Right patellar reflex intensity grade: 2+ and Left patellar reflex intensity grade: 2+ Extrem Other: Decreased range of motion of hip joints due to pain , no gross bone deformity seen General: Yes no clubbing, cyanosis or edema Psych Appearance: disheveled Mental Status: mental status grossly normal Speech and movement: Normal speech and movement present Affect: Depressed mood present Attitude: cooperative Thought process: Normal thought process present Thought content: Normal thought content present Assessment and Plan Assessment & Plan (1) Depression with anxiety: Code(s): F41.8 - Other specified anxiety disorders Plan: Referred to outpatient Psychiatry at [facility] for further evaluation management (2) Mixed dyslipidemia: Code(s): E78.2 - Mixed hyperlipidemia Plan: Fasting lipid panel ordered today (3) Essential hypertension: Code(s): I10 - Essential (primary) hypertension Plan: Blood pressure slightly on the low side, (4) Elevated liver enzymes: Code(s): R74.8 - Abnormal levels of other serum enzymes Plan: Markedly elevated liver enzymes likely due to alcohol intake (5) Alcohol use disorder: Plan: Advised to seek help at comprehensive clinic in [place], to help with quitting alcohol use (6) Smoker unmotivated to quit: Code(s): F17.200 - Nicotine dependence, unspecified, uncomplicated Plan: Patient strongly advised to stop smoking, as smoking damages blood vessels, degenerative of joints and spine, damage to lungs and heart., predisposes to developing certain cancers like lung, breast, bladder, colon. Recommended to try decreasing cigarette use by 1-2 cigarettes a day. Advised to monitor what triggers are for smoking so that this can be discussed on the next office visit. We can discuss different options to quit smoking when ready. (7) Generalized anxiety disorder: Code(s): F41.1 - Generalized anxiety disorder Plan: Referred to outpatient Psychiatry for further evaluation and management. (8) Osteoporosis: Comment: L3 fractured 2022 T12, L1, L2, L4 fractures 11/2023 Code(s): M81.0 - Age-related osteoporosis without current pathological fracture Qualifiers: Encounter type: initial encounter Osteoporosis type: age-related Presence of current pathological fracture: with current pathological fracture Qualified Code(s): M80.00XA - Age-related osteoporosis with current pathological fracture, unspecified site, initial encounter for fracture Plan: Currently waiting for approval for Evenity, ordered by Rheumatology, strongly encouraged to stop smoking and alcohol intake Orders: Orders Lipid Panel 04/03/24 E78.2 - Mixed hyperlipidemia, F17.200 - Nicotine dependence, unspecified, uncomplicated, F41.1 - Generalized anxiety disorder, I10 - Essential (primary) hypertension, M80.00XA - Age-related osteoporosis with current pathological fracture, unspecified site, initial encounter for fracture, R74.8 - Abnormal levels of other serum enzymes TSH reflex Free T4 04/03/24 E78.2 - Mixed hyperlipidemia, F17.200 - Nicotine dependence, unspecified, uncomplicated, F41.1 - Generalized anxiety disorder, I10 - Essential (primary) hypertension, M80.00XA - Age-related osteoporosis with current pathological fracture, unspecified site, initial encounter for fracture, R74.8 - Abnormal levels of other serum enzymes Vitamin D 25-OH Total 04/03/24 E78.2 - Mixed hyperlipidemia, F17.200 - Nicotine dependence, unspecified, uncomplicated, F41.1 - Generalized anxiety disorder, I10 - Essential (primary) hypertension, M80.00XA - Age-related osteoporosis with current pathological fracture, unspecified site, initial encounter for fracture, R74.8 - Abnormal levels of other serum enzymes Comprehensive [place]. Panel Fast 04/03/24 E78.2 - Mixed hyperlipidemia, F17.200 - Nicotine dependence, unspecified, uncomplicated, F41.1 - Generalized anxiety disorder, I10 - Essential (primary) hypertension, M80.00XA - Age-related osteoporosis with current pathological fracture, unspecified site, initial encounter for fracture, R74.8 - Abnormal levels of other serum enzymes Hemoglobin A1c 04/03/24 E78.2 - Mixed hyperlipidemia, F17.200 - Nicotine dependence, unspecified, uncomplicated, F41.1 - Generalized anxiety disorder, I10 - Essential (primary) hypertension, M80.00XA - Age-related osteoporosis with current pathological fracture, unspecified site, initial encounter for fracture, R74.8 - Abnormal levels of other serum enzymes Referrals Psychiatry Referral F41.8 - Other specified anxiety disorders Coding Level of Care Code Est Pt Level 4 (11322) Complex EM visit Add On G2211 Diagnoses Depression with anxiety F41.8 Mixed dyslipidemia E78.2 Essential hypertension I10 Elevated liver enzymes R74.8 Alcohol use disorder F10.90 Smoker unmotivated to quit F17.200 Generalized anxiety disorder F41.1 Age-related osteoporosis with current pathological fracture, initial encounter M80.00XA Encounter type: initial encounter Osteoporosis type: age-related Presence of current pathological fracture: with current pathological fracture
== END 2024-04-02 15:35 | disposition home or self-care (01) ==
PROVIDERS: PCP Internal Medicine; Visit Provider Internal Medicine
DX: F41.8 Other specified anxiety disorders (principal); E78.2 Mixed hyperlipidemia; I10 Essential (primary) hypertension; R74.8 Abnormal levels of other serum enzymes; F10.90 Alcohol use, unspecified, uncomplicated; F17.200 Nicotine dependence, unspecified, uncomplicated; F41.1 Generalized anxiety disorder; M80.00XA Age-related osteoporosis with current pathological fracture, unspecified site, initial encounter for fracture

== ENCOUNTER → 2024-04-02 12:59 | Outpatient (BNVA) | payer OTHER, SELFPAY | PROVIDERS: PCP Internal Medicine; Visit Provider Internal Medicine | DX: F41.8 Other specified anxiety disorders (principal); E78.2 Mixed hyperlipidemia; I10 Essential (primary) hypertension; R74.8 Abnormal levels of other serum enzymes; F41.1 Generalized anxiety disorder; M80.00XA Age-related osteoporosis with current pathological fracture, unspecified site, initial encounter for fracture; F10.90 Alcohol use, unspecified, uncomplicated; F17.210 Nicotine dependence, cigarettes, uncomplicated | CPT/HCPCS: 96127 ==

== ENCOUNTER 2024-04-03 08:50 | Outpatient (REF) | payer OTHER, SELFPAY ==
[2024-04-03 13:41] LABS: Estimated Average Glucose 94 mg/dL; Hemoglobin A1c % 4.9 % (<6.0)
[2024-04-03 13:46] LABS: Alanine Aminotransferase 31 U/L (0-31); Albumin Level 3.4 g/dL (3.5-5.0); Alkaline Phosphatase 150 U/L (39-117); Anion Gap 13 (12-20); Aspartate Amino Transferase 117 U/L (5-31); Bilirubin Total 3.8 mg/dL (0.0-1.0); Blood Urea Nitrogen 8 mg/dL (9-16); Calcium 9.5 mg/dL (8.4-10.2); Carbon Dioxide 24 mmol/L (22-29); Chloride 102 mmol/L (96-108); Cholesterol 196 mg/dL (<200); Estimated Glomerular Filt Rate > 60; Glucose Fasting 110 mg/dL (60-99); HDL Cholesterol 14 mg/dL (>40); LDL Cholesterol Calculated 151 mg/dL (<100); Sodium 135 mmol/L (135-145); Total Protein 8.8 g/dL (6.5-8.0); Triglycerides 158 mg/dL (<150)
[2024-04-03 14:02] LABS: TSH reflex Free T4 3.77 uIU/mL (0.32-4.0)
== END 2024-04-03 08:51 | disposition home or self-care (01) ==
LOC: HO.HMGCLDS 08:50
PROVIDERS: PCP Internal Medicine; Visit Provider Internal Medicine
DX: I10 Essential (primary) hypertension (principal); M80.00XA Age-related osteoporosis with current pathological fracture, unspecified site, initial encounter for fracture; R74.8 Abnormal levels of other serum enzymes; E78.2 Mixed hyperlipidemia; F41.1 Generalized anxiety disorder; F17.200 Nicotine dependence, unspecified, uncomplicated; Z13.1 Encounter for screening for diabetes mellitus
CPT/HCPCS: 36415; 80053; 80061; 82306; 83036; 84443

== ENCOUNTER 2024-04-24 12:40 | Outpatient (AMB) | payer OTHER, SELFPAY ==
--- NOTE | 2024-04-24 13:09 | MHC.PC.OV ---
Vital Signs 04/24/24 13:11 Height 5 ft Weight 119 lb 2 oz BMI 23.3 BP 98/66 Blood Pressure Location Rt brachial Position Sitting Pulse 108 H Pulse Source Pulse Oximeter Pulse Oximetry (%) 96 Oxygen Delivery Method Room Air Intake Visit Reasons: Annual PE Allergies No Known Allergies Allergy (Verified 04/24/24 23:26) Medication List - Last Reconciled 04/24/[address] MD back brace As directed calcium carbonate-vitamin D3 1,000 mg-20 mcg (800 unit) 1 tab PO BID cholecalciferol (vitamin D3) 1,250 mcg PO QWEEK 3 months Tobacco use date assessed: 04/24/24 Dental Screening Dental Screen Date: 04/24/24 Did you have a dental visit in the last 12 months?: Yes Did you have a dental problem in the last 6 months where you did not have access to dental care?: No Was dental information given to patient?: Patient has dentist HPI Annual PE HPI Details 59 [id number], with past medical history of anxiety disorder, smoker, alcohol use disorder, hypertension, dyslipidemia , Osteoporosis with repeat multiple compression fractures at T12, L1, L 2 and L4, here for a physical examination. She has been approved for her Evenity treatment, gets it through the patient's assistance program and has been advised by her sports physician clinic to take calcium, vitamin-D the weekly and the daily dose, magnesium, cut down on alcohol, get 24 hour urine calcium and blood work before that visit as well as a bone scan prior to starting Evenity treatment. She is overdue for a screening mammogram and cervical screening, agreed to get mammogram scheduled but patient refusing to get cervical cancer screening, a bone density scan has been ordered by Rheumatology. She has not had a colon cancer screening, refusing to get colonoscopy procedure but willing to do Cologuard which was ordered today. She has refused all vaccinations offered. Main complaint today is her back pain. Was prescribed a back brace but has not been able to get it due to its high cost. Still awaiting appointment date to [place] [facility] Medical History (Updated 04/24/24 @ 13:[address] MD) Depression with anxiety Osteoporosis Acute back pain with radiculopathy Papanicolaou smear declined Immunization refused Generalized anxiety disorder Smoker unmotivated to quit Alcohol use disorder Elevated liver enzymes Essential hypertension Colonoscopy refused Refused influenza vaccine Mixed dyslipidemia Social History Household Members: Spouse and Children Housing: House Do you presently have visiting nurse or other home services: No Alcohol intake: current Alcohol intake frequency: 3 or more drinks per day Patient Tobacco Use Status: Current everyday Tobacco user Tobacco use type: Cigarette Cigarette Packs Per Day: 1 Cigarettes Per Day: 20.0 Years Smoked: 40 & years e-Cigarette/Vaping Use: Never Used Second Hand Smoke Exposure: Yes Advance Directives Date on File: 04/16/20 service: No Current occupational status: unemployed Cognitive needs: No Hearing needs: No Vision needs: Yes Questionnaire Thrive Questionnaire Date Thrive assessed: 11/24/23 Review of Systems Const Reports difficulty sleeping, Reports poor appetite and Reports weakness Eyes Details: Overdue for an eye exam Reports no additional complaints ENT Reports no additional complaints Card Denies chest pain, Denies chest pain with activity, Denies syncope, Denies irregular heart rhythm, Denies lightheadedness and Denies dyspnea Resp Reports no additional complaints and Denies dyspnea GI Reports no additional complaints Denies difficulty voiding and Denies urinary incontinence Musc Reports as per HPI Skin/Breast Denies breast swelling, Denies breast pain, Denies breast mass and Denies rash Neuro Reports no additional complaints, Denies syncope and Reports weakness Psych Reports as per HPI Endo Reports no additional complaints Arnold/Lymph Denies easy bleeding and Denies easy bruising Aller/Immun Reports no additional complaints Physical exam (Primary Care) Vital Signs: Last Vital Signs Pulse 108 H 04/24/24 13:11 BP 98/66 04/24/24 13:11 Pulse Ox 96 04/24/24 13:11 Oxygen Delivery Method Room Air 04/24/24 13:11 BMI result Body Mass Index 23.3 Tobacco/Smoking Status: Tobacco use Status Tobacco use date assessed 04/24/24 04/24/24 13:13 Patient Tobacco Use Status Current everyday Tobacco 04/24/24 13:13 Tobacco use type Cigarette 04/24/24 13:13 e-Cigarette/Vaping Use Never Used 04/24/24 13:13 Thrive Assessment: Date of Thrive Assessment Date Thrive assessed 11/24/23 04/24/24 13:13 Const Orientation/consciousness: patient oriented x3 [facility] General nose exam: Normal external nose present Face and sinus: Yes face symmetric Mouth: Normal oral and palatal mucosa present, oropharynx normal and moist mucous membranes Teeth and gingiva: poor dentition Eyes General: appearance normal, both eyes and all related structures Conjunctivae: conjunctivae normal Sclerae: sclerae normal Pupils: Equal, round and reactive pupils present Neck Neck: Yes full ROM, Yes no lymphadenopathy and Yes supple Chest Chest palpation & inspection: normal inspection of the chest Breast/axilla palpation: normal palpation of the breasts Resp Auscultation: clear to auscultation bilaterally Cardio Other: S1-S2 present regular rate and rhythm GI Palpation (GI): Soft to palpation, nontender, no guarding and no masses Auscultation: normal bowel sounds Other: Declined exam Back/Spine/Pelvis Other: Tenderness on palpation over lumbosacral spine and paraspinal muscles bilaterally, equivocal straight leg less than sign bilaterally Skin General skin exam: no rashes or lesions noted Neuro General: patient oriented x3, tone normal, moves all extremities, Normal light touch and pain sensation, no focal motor deficits and CN's II-XI intact bilaterally Cranial nerves: Yes Equal, round and reactive pupils present Deep tendon reflexes (DTR's): Right patellar reflex intensity grade: 2+ and Left patellar reflex intensity grade: 2+ Extrem Other: Decreased range of motion of hip joints due to pain , no gross bone deformity seen General: Yes no clubbing, cyanosis or edema Psych Appearance: disheveled Mental Status: mental status grossly normal Speech and movement: Normal speech and movement present Affect: Depressed mood present Attitude: cooperative Thought process: Normal thought process present Thought content: Normal thought content present Results Reviewed Results Reviewed: Name: Yamel Borrero Age/Sex: 59/F : 1965 Unit#: [id number] Attend Dr: Anupama Lane MD Re04/03/24 Status: DEP [facility] Dis[facility]: SPEC : [id number] [place] 04/03/24 STATUS: COMP REQ : [id number] RECD: 04/03/24-[address]: Anupama Lane MD COMP: 04/03/24140 ENTERED: 04/03/[address] [facility] [address]: ORDERED: CMP Fast, Lipid Panel, Vitamin D 25-OH, TSH Rflx Test Result Flag Reference Sodium 135 135-145 mmol/L Potassium 4.0 # 3.3-5.1 mmol/L CL 102 96-108 mmol/L CO2 24 22-29 mmol/L Gap 13 12-20 BUN 8 L 9-16 mg/dL Creat 0.58 0.5-1.4 mg/dL EGFR > 60 NOTE: For -[place] individuals, multiply the result by 1.210. Chronic Kidney Disease: Estimated GFR < 60 mL/min/1.73m2 Severe Kidney Disease: Estimated GFR < 15 mL/min/1.73m2 FBS 110 H 60-99 mg/dL A fasting glucose from 100-125 mg/dl is considered impaired (pre-diabetes). CA 9.5 8.4-10.2 mg/dL Total Bili 3.8 H 0.0-1.0 mg/dL AST (GOT) 117 H 5-31 U/L ALT (GPT) 31 0-31 U/L Protein, Total 8.8 H 6.5-8.0 g/dL Alb 3.4 L 3.5-5.0 g/dL Triglyceride 158 H <150 mg/dL Desirable Triglyceride: less than 150 mg/dL Borderline High Triglyceride 150-199 mg/dL High Triglyceride: 200-499 mg/dL Very High Triglyceride: greater than or equal to 5OO mg/dL Cholesterol 196 <200 mg/dL Desirable Cholesterol: less than 200 mg/dL Borderline High Cholesterol: 200-239 mg/dL High Cholesterol: greater than 239 mg/dL LDL Calculated 151 H <100 mg/dL Desirable LDL: less than 100 mg/dL Near Optimal/Above Optimal LDL: 110-129 mg/dL Borderline High LDL: 130-159 mg/dL High LDL: 160-189 mg/dL Very High LDL: greater than or equal to 190 mg/dL HDL 14 L >40 mg/dL Desirable HDL: greater than 40 mg/dL Note: This HDL assay may give artificially low results in patients with liver disease. Alk Phos 150 H 39-117 U/L Vit D 25-OH Tot 16.0 L >30 ng/mL Health Based Reference Values* < 20 ng/mL Deficient 20-30 ng/mL Insufficient > 30 ng/mL Sufficient *Mark WHITE. N Engl J Med. 2007;357:266-280 Care must be taken in interpreting Vitamin D results from different laboratories and methodologies. Published data demonstrated that results from patients undergoing hemodialysis may show a negative bias when tested with various automated 25-OH vitamin D assays when compared to LC-MS/MS. When testing samples from patients whose predominant form of Vitamin D is Vitamin D2, such as patients receiving Vitamin D2 supplementation, results that are subtherapeutic should be confirmed with another method such as LC-MS/MS. TSH 3.77 0.32-4.0 uIU/mL Coding Level of Care Code Est Pt Prev Care 40-64y(33119) Diagnoses Annual visit for general adult medical examination with abnormal findings Z00.01 Depression with anxiety F41.8 Age-related osteoporosis with current pathological fracture, initial encounter M80.00XA Encounter type: initial encounter Osteoporosis type: age-related Presence of current pathological fracture: with current pathological fracture Compression fracture of L2 vertebra, initial encounter S32.020A Encounter type: initial encounter Lumbar vertebra fracture level: L2 Papanicolaou smear declined Z53.20 Immunization refused Z28.21 Alcohol use disorder F10.90 Smoker unmotivated to quit F17.200 Essential hypertension I10 Colonoscopy refused Z53.20 Mixed dyslipidemia E78.2 Elevated liver enzymes R74.8 Assessment & Plan Assessment & Plan (1) Annual visit for general adult medical examination with abnormal findings: Code(s): Z00.01 - Encounter for general adult medical examination with abnormal findings Plan: Recent fasting lab results reviewed with patient. Recommended dental visit every 6 months and regular eye exams, at least every 2 years. Take adequate calcium in diet and she has been prescribed high-dose vitamin-D 3 replacement 90045 units once a week for the next 3 months, and i currently being followed by rheumatology clinic for osteoporosis treatment. Instructed to do self-breast exam, and recommended to get yearly mammogram, test ordered today. Patient does not want to get any for cervical cancer screening or pelvic exam. Nor does she want to get colonoscopy procedure but willing to do Cologuard testing which was ordered. Not want to get any vaccinations. (2) Depression with anxiety: Code(s): F41.8 - Other specified anxiety disorders Category: Medical Plan: Does not want to start any medication at present time, still waiting for appointment to be [place] [facility] [place], referred on last visit (3) Osteoporosis: Comment: L3 fractured 2022 T12, L1, L2, L4 fractures 11/2023 Code(s): M81.0 - Age-related osteoporosis without current pathological fracture Category: Medical Qualifiers: Encounter type: initial encounter Osteoporosis type: age-related Presence of current pathological fracture: with current pathological fracture Qualified Code(s): M80.00XA - Age-related osteoporosis with current pathological fracture, unspecified site, initial encounter for fracture Plan: Currently followed by Rheumatology, advised to take adequate calcium and replace vitamin-D sources, she is to be started on Evenity once workup done (4) Compression fracture of lumbar vertebra: Code(s): S32.000A - Wedge compression fracture of unspecified lumbar vertebra, initial encounter for closed fracture Category: Medical Qualifiers: Encounter type: initial encounter Lumbar vertebra fracture level: L2 Qualified Code(s): S32.020A - Wedge compression fracture of second lumbar vertebra, initial encounter for closed fracture Plan: Currently being seen by pain management to be scheduled for kyphoplasty (5) Papanicolaou smear declined: Code(s): Z53.20 - Procedure and treatment not carried out because of patient's decision for unspecified reasons Category: Medical Plan: Does not want to get any pelvic exam or Pap smear done (6) Immunization refused: Code(s): Z28.21 - Immunization not carried out because of patient refusal Category: Medical Plan: Declined all vaccinations offered (7) Alcohol use disorder: Category: Medical Plan: Strongly encouraged to cut back or quit alcohol intake altogether, she has been referred [place] [facility] [place] use, patient however has not yet scheduled appointment (8) Smoker unmotivated to quit: Code(s): F17.200 - Nicotine dependence, unspecified, uncomplicated Category: Social Hx Plan: Does not want to quit at present time (9) Essential hypertension: Code(s): I10 - Essential (primary) hypertension Category: Medical Plan: Blood pressure today is within normal limits, currently not on any blood pressure medication (10) Colonoscopy refused: Code(s): Z53.20 - Procedure and treatment not carried out because of patient's decision for unspecified reasons Category: Medical Plan: Refusing colonoscopy procedure but willing to do Cologuard testing which was ordered today (11) Mixed dyslipidemia: Code(s): E78.2 - Mixed hyperlipidemia Category: Medical Plan: Recent fasting labs showed elevated LDL cholesterol. Reinforced importance of following a low-cholesterol diet, refusing to see dietitian however for guidance. Has been eating microwave dinners all the time, does not cook as she states she gets tired easily when she stands for long time and back pain also prevents her from standing or staying in 1 position for extended periods of time (12) Elevated liver enzymes: Code(s): R74.8 - Abnormal levels of other serum enzymes Category: Medical Plan: Has elevated liver enzymes ALT greater than AST, due to alcohol misuse. Patient has been referred to the comprehensive center at [place] for assistance in quitting alcohol intake and smoking but patient has not yet kept appointment. Reiterated importance of alcohol and smoking cessation to patient Orders: Orders MM tomosynthesis screening BI 06/24/24 Z12.31 - Encounter for screening mammogram for malignant neoplasm of breast Referrals Cologuard Test Z12.11 - Encounter for screening for malignant neoplasm of colon, Z12.12 - Encounter for screening for malignant neoplasm of rectum
[2024-04-24 13:11] VITALS: BP 98/66; PULSE 108; O2SAT 96; BMI 23.3
== END 2024-04-24 14:32 | disposition home or self-care (01) ==
PROVIDERS: PCP Internal Medicine; Visit Provider Internal Medicine
DX: Z00.01 Encounter for general adult medical examination with abnormal findings (principal); F41.8 Other specified anxiety disorders; M80.00XA Age-related osteoporosis with current pathological fracture, unspecified site, initial encounter for fracture; S32.020A Wedge compression fracture of second lumbar vertebra, initial encounter for closed fracture; Z53.20 Procedure and treatment not carried out because of patient's decision for unspecified reasons; Z28.21 Immunization not carried out because of patient refusal; F10.90 Alcohol use, unspecified, uncomplicated; F17.200 Nicotine dependence, unspecified, uncomplicated; I10 Essential (primary) hypertension; E78.2 Mixed hyperlipidemia; R74.8 Abnormal levels of other serum enzymes

== ENCOUNTER → 2024-04-24 12:40 | Outpatient (BNVA) | payer OTHER, SELFPAY | PROVIDERS: PCP Internal Medicine; Visit Provider Internal Medicine ==

== ENCOUNTER → 2024-05-15 09:21 | Outpatient (BNVA) | payer OTHER, SELFPAY | PROVIDERS: PCP Internal Medicine; Visit Provider Clinical Nurse Specialist Psychiatric/Mental Health | DX: F33.9 Major depressive disorder, recurrent, unspecified (principal); F41.1 Generalized anxiety disorder; F41.0 Panic disorder [episodic paroxysmal anxiety]; F10.90 Alcohol use, unspecified, uncomplicated | CPT/HCPCS: 90792 ==

== ENCOUNTER 2024-05-15 09:24 | Outpatient (AMB) | payer OTHER, SELFPAY ==
--- NOTE | 2024-05-15 09:21 | A.OFFPSYCH_ITS ---
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 pt reports she drinks alcohol every day starting at midday; she drinks approximately a 1/2 gallon of vodka every 3 days. she reports it helps her feel normal; she reports anxiety and panic triggered her drinking approximately 1 years ago; before that she did not drink much. she describes very difficult relationship with and 2 daughters; she can not see her grandchildren due to her drinking; she lives in the basement to get away from her and daughter who live in the same house; they exchange hostile words with each other. She feels sad that she can not see grandchildren. She has low motivation to quit drinking due to how much it helps her feels normal. she is aware that her liver enzymes are high and she is at risk of cirrhosis. she is aware thather health would likely be better if she stopped drinking. She is in chronic pain due to back fractures. She expresses helplessness and hopelessness re: her situation with family, health and drinking. she denies SI or HI. PHQ9= 10 and VIJAY-7 = 5 Past Psychiatric History: no oupt or IPLOC Subjective Subjective Subjective Medication Compliance: Yes Side effects from medications: No Review of Systems Medical Review of Systems: unchanged Mental Status Exam Mental Status Exam Patient Appearance: Appropriate Patient Orientation: Person, Place, Time and Situation Level of Consciousness: Awake Patient Behavior: Appropriate and Crying (tearful) Mood Description: Depressed, Anxious and Angry (irritable) Affect Description: Depressed Patient Cognition Impaired: No Ability to Follow Directions: Good Speech Pattern: Clear Memory Description: Episodic Impaired Hallucinations: None Delusions: Not Present Thought Process: Goal Oriented and Linear Thought Content: positive for [place] and positive for Goal Oriented Judgement: Poor Assessment and Plan Assessment & Plan (1) Alcohol use disorder: Status: Acute (2) Generalized anxiety disorder with panic attacks: Status: Acute Code(s): F41.1 - Generalized anxiety disorder; F41.0 - Panic disorder [episodic paroxysmal anxiety] (3) Major depression, recurrent, chronic: Status: Acute Code(s): F33.9 - Major depressive disorder, recurrent, unspecified Plan motivational interviewing to explore motivation to cut back on drinking etoh education re: medical risks of alcohol withdrawal and need fro medical interventions if suddenly stopped drinking trial of naltrexone to reduce etoh intake cymbalta trial for depression, anxiety and pain education re: signs and symptoms of worsening liver disease retrun in 4 weeks Medications: New duloxetine (Cymbalta) 20 mg PO DAILY 30 caps 1RF naltrexone 50 mg PO DAILY 30 tabs 1RF Counseling and coordination of Care Pt. Self Management counseling: Mod caffeine/ETOH intake, Nutrition education and improvement and Sleep hygiene Medication management counseling: Effectiveness, Side effects, Dosing range, Duration, Drug interaction, Adherence and Other Diagnosis and Prognosis Counseling: Accuracy of diagnosis, Prognosis over time, Impact of diagnosis on life functions, Impact of family relationship, Problematic behaviors secondary to diagnosis and Adequacy of current interventions Details: I spent 75 minutes reviewing the record, seeing the patient and documenting in the medical record. Counseling provided to the patient/caregiver as outlined below. Addressed patient/caregiver concerns regarding current medication regime including effective adherence. Addressed patient/caregiver concerns regarding diagnosis and prognosis including accuracy of diagnosis, prognosis over time, impact of diagnosis. Addressed patient/caregiver concerns regarding impact of recent stressors. [facility] Medical History (Updated 05/15/24 @ 10:44 by Apple Oh APRN) Depression with anxiety Osteoporosis Acute back pain with radiculopathy Papanicolaou smear declined Immunization refused Generalized anxiety disorder Smoker unmotivated to quit Alcohol use disorder Elevated liver enzymes Essential hypertension Colonoscopy refused Refused influenza vaccine Mixed dyslipidemia Social History Household Members: Spouse and Children Housing: House Do you presently have visiting nurse or other home services: No Alcohol intake: current Alcohol intake frequency: 3 or more drinks per day Patient Tobacco Use Status: Current everyday Tobacco user Tobacco use type: Cigarette Cigarette Packs Per Day: 1 Cigarettes Per Day: 20.0 Years Smoked: 40 & years e-Cigarette/Vaping Use: Never Used Second Hand Smoke Exposure: Yes Advance Directives Date on File: 04/16/20 service: No Current occupational status: unemployed Cognitive needs: No Hearing needs: No Vision needs: Yes Social History: lives in house with of 40 yrs and their 28 yo daughter; pt lives in basement to have privacy from them; 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
== END 2024-05-15 11:11 | disposition home or self-care (01) ==
PROVIDERS: PCP Internal Medicine; Visit Provider Clinical Nurse Specialist Psychiatric/Mental Health
DX: F10.90 Alcohol use, unspecified, uncomplicated (principal); F41.1 Generalized anxiety disorder; F41.0 Panic disorder [episodic paroxysmal anxiety]; F33.9 Major depressive disorder, recurrent, unspecified
CPT/HCPCS: 90792

== ENCOUNTER 2024-05-29 19:40 | Inpatient (IN) | payer OTHER, SELFPAY ==
--- NOTE | 2024-05-29 | ECG_ITS ---
Test Reason : DIZZINESS Blood Pressure : / mmHG Vent. Rate : 109 BPM Atrial Rate : 109 BPM P-R Int : 124 ms QRS Dur : 088 ms QT Int : 366 ms P-R-T Axes : 055 039 038 degrees QTc Int : 492 ms Sinus tachycardia Possible Left atrial enlargement Nonspecific ST abnormality Abnormal ECG When compared with ECG of 22-APR-2002 15:52, Non-specific change in ST segment in Lateral leads QT has lengthened Referred By: Generic ED Physician Electronically Signed By:BRISEYDA TOURE MD
--- NOTE | ~2024-05-29 | CT_ITS ---
EXAM: CT HEAD WITHOUT CONTRAST CT CERVICAL SPINE INDICATION: trauma TECHNIQUE: A noncontrast CT scan was performed from the skull base to the vertex. A noncontrast CT scan of the cervical spine was performed from the base of the skull through T1 at 2.5 mm and 0.625 mm collimation. Coronal and sagittal reformats were obtained at the acquisition workstation. This CT examination was performed using dose optimization techniques as appropriate, variously including the following: * Automated exposure control * Adjustment of mA and/or kV according to patient size (this includes techniques or standardized protocols for targeted exams where dose is matched to indication/reason for exam; i.e. extremities or head) * Use of iterative reconstruction technique Dose length product is 268 mGy-cm. COMPARISON: None FINDINGS: Head: There is no evidence of acute intracranial hemorrhage or edematous large vessel territorial infarction. No abnormal mass effect or midline shift is seen. Courtney to white matter differentiation is well preserved. No abnormal extra-axial fluid collections are identified. Commensurate prominence of the ventricles and sulci is compatible with generalized parenchymal volume loss. There is patchy periventricular and subcortical white matter hypoattenuation, most likely representing microangiopathic disease. No acute calvarial fracture.. Paranasal sinuses and mastoid air cells are well-aerated. Cervical Spine: The atlantooccipital and atlantoaxial articulations are maintained. Anatomic alignment of the vertebral bodies. No evidence of acute fracture. Vertebral body heights are maintained. Disc spaces are relatively maintained.. The bony canal is maintained.. No prevertebral soft tissue swelling. Visualized lung apices are clear. No suspicious thyroid findings. CT/CT cervical spine wo IV con IMPRESSION: 1. No CT evidence of acute intracranial hemorrhage or edematous territorial infarction. 2. No CT evidence of acute cervical spine fracture or malalignment. Electronically signed by: Chang Mejia MD 05/29/2024 10:13 PM [facility]
--- NOTE | ~2024-05-29 | US_ITS ---
EXAMINATION: US RIGHT UPPER QUADRANT LIMITED CLINICAL INFORMATION: Pain. COMPARISON: Ultrasound abdomen 11/25/2023 TECHNIQUE: Real-time imaging of the liver, gallbladder and common bile duct. FINDINGS: LIVER: Limited views of the liver secondary to body habitus. The liver is markedly echogenic consistent with hepatic steatosis with poor through transmission. A benign 2.7 cm cyst is present in the left lobe of the liver. No focal solid hepatic lesion. There is no intrahepatic biliary duct dilatation seen. GALLBLADDER: Very limited views of the gallbladder. No stones were seen. Hudson's sign is positive. No pericholecystic fluid. COMMON BILE DUCT: Could not be seen. US/US abdomen limited IMPRESSION: 1. Very limited exam. 2. Markedly echogenic liver consistent with hepatic steatosis. 3. Benign hepatic cyst. 4. No gallstones were seen, however Hudson's sign is positive. Electronically signed by: Magnus Anne MD 05/29/2024 10:46 PM [facility]
[2024-05-29 19:47] VITALS: BP 140/102; PULSE 140
[2024-05-29 19:52] VITALS: BP 149/85; PULSE 120; RESP 17; TEMP 36.9; O2SAT 98; BMI 18.7
[2024-05-29 20:02] LABS: MANUAL DIFF FLAG NO
--- NOTE | 2024-05-29 20:04 | ED.FALL ---
HPI - Fall General Chief Complaint: Fall Stated Complaint: found onfloor by fam, ?etoh withdrawl Time Seen by Provider: 05/29/24 20:04 Source: patient Limitations: no limitations History of Present Illness ED Provider: Rhonda chicas PA-C HPI Narrative: 59-year-old female with a history of hypertension, hyperlipidemia alcohol use disorder, depression, anxiety, osteoporosis, arthritis, known compression fractures within the lumbar vertebrae, presents after fall at home. Family called for assistance to the home after the patient refused to get off the floor. Patient drinks on a regular basis, she was drinking earlier today, prior to the fall. She did strike her head. There was no loss of consciousness, the patient does not use blood thinners. She is at her baseline mentation per the family. Related Data Previous Rx's ?Medication ?Instructions ?Recorded back brace #1 ea 01/21/24 calcium 1,000 mg (as 1 tab PO BID #180 tabs 04/10/24 carbonate)-vitamin D3 20 mcg (800 unit) tablet cholecalciferol (vitamin D3) 1,250 1,250 mcg PO QWEEK 3 months #13 04/10/24 mcg (50,000 unit) capsule caps duloxetine 20 mg capsule,delayed 20 mg PO DAILY #30 caps 05/15/24 release (Cymbalta) naltrexone 50 mg tablet 50 mg PO DAILY #30 tabs 05/15/24 Allergies Allergy/AdvReac Type Severity Reaction Status Date / Time No Known Allergies Allergy Verified 05/29/24 19:52 Review of Systems Review of Systems: Yes all other systems are reviewed and are negative Constitutional: Constitutional: Denies fatigue and Denies fever(s) Cardiovascular: Cardiovascular: Denies chest pain and Denies dyspnea Respiratory: Respiratory: Denies dyspnea Gastrointestinal: Gastrointestinal: Denies abdominal pain, Denies nausea and Denies vomiting Musculoskeletal: Musculoskeletal: Denies back pain Endocrine: Endocrine: Denies fatigue [facility] Past Medical History Attestation statement: The following information was validated with the patient. Medical History (Updated 05/30/24 @ 01:30 by VIVIAN Chun) Depression with anxiety Osteoporosis Acute back pain with radiculopathy Papanicolaou smear declined Immunization refused Generalized anxiety disorder Smoker unmotivated to quit Alcohol use disorder Elevated liver enzymes Essential hypertension Colonoscopy refused Refused influenza vaccine Mixed dyslipidemia Social History Social History Household Members: Spouse and Children Housing: House Do you presently have visiting nurse or other home services: No Alcohol intake: current Alcohol intake frequency: 3 or more drinks per day Patient Tobacco Use Status: Current everyday Tobacco user Tobacco use type: Cigarette Cigarette Packs Per Day: 1 Cigarettes Per Day: 20.0 Years Smoked: 40 & years Smoked in Last 30 Days: Yes e-Cigarette/Vaping Use: Never Used Second Hand Smoke Exposure: Yes Use of substances other than those prescribed or required for medical reasons: No Advance Directives: No Advance Directives Information Provided: No Advance Directives Date on File: 04/16/20 Do you have a plan to hurt others: No Plan service: No Current occupational status: unemployed Cognitive needs: No Hearing needs: No Vision needs: Yes Physical Exam Vital Signs: Vital Signs: Last Vital Signs Temp 98.2 F 05/29/24 21:59 Pulse 116 H 05/29/24 21:59 Resp 22 H 05/29/24 21:59 BP 128/74 05/29/24 21:59 Pulse Ox 97 05/29/24 21:59 O2 Del Method Room Air 05/29/24 21:59 BMI result Body Mass Index 18.7 Const: Other: Awake, appears older than stated age, disheveled Orientation/consciousness: patient oriented x3 Resp: Other: Nonlabored respiration Cardio: Other: Normal peripheral perfusion Skin: Other: Warm dry no rash Neuro: General: patient oriented x3, no focal motor deficits and CN's II-XI intact bilaterally Psych: Other: Hostile, somewhat uncooperative Course Course Course Narrative: I spoke with the patient in the family at bedside, I asked if she was interested in detox, initially the patient states ?no?, she was quite emphatic about not wanting detox. Her daughter is quite upset, she told the patient that she could find her own way home if she chooses to continue to drink and not seek help, the patient is willing to stay. We will monitor for further withdrawal symptoms, she is still tachycardic, we will be giving an additional 130 mg IV. We will be updating her CIWA scale. We will place a consult with the care team for a refinery operator vapor recovery unit for tomorrow morning. Medications Administered Discontinued Medications Generic Name Dose Route Start Last Admin Trade Name Freq PRN Reason Stop Dose Admin Sodium Chloride 1,000 mls @ 999 mls/hr 05/29/24 20:15 05/29/24 21:28 Ns IV 05/29/24 21:15 Infused .Q1H1M ANN Infusion Magnesium Sulfate 2 gm in 50 mls @ 25 mls/hr 05/29/24 21:10 05/30/24 00:23 Magnesium Sulfate/H2o IV 05/29/24 23:09 Infused ONCE ONE Infusion Ibuprofen 600 mg 05/29/24 22:41 05/29/24 22:55 Ibuprofen 600 Mg Tablet PO 05/29/24 22:42 600 mg ONCE ONE Administration Phenobarbital Sodium 130 mg 05/29/24 20:07 05/29/24 20:26 Phenobarbital Sodium 130 Mg/Ml Vial IVPUSH 05/29/24 20:08 130 mg ONCE ONE Administration Phenobarbital Sodium 130 mg 05/29/24 23:08 05/29/24 23:28 Phenobarbital Sodium 130 Mg/Ml Vial IVPUSH 05/29/24 23:09 130 mg ONCE ONE Administration Medical Decision Making Medical Decision Making MDM Narrative: 59-year-old female with a history of hypertension, hyperlipidemia alcohol use disorder, depression, anxiety, osteoporosis, arthritis, known compression fractures within the lumbar vertebrae, presents after fall at home. Family called for assistance to the home after the patient refused to get off the floor. Patient drinks on a regular basis, she was drinking earlier today, prior to the fall. She did strike her head. There was no loss of consciousness, the patient does not use blood thinners. She is at her baseline mentation per the family. Problem: Alcohol use disorder History: Per patient and family I have considered the following differential diagnoses: Cervical spine injury, acute intracranial hemorrhage, fracture, dislocation, alcohol intoxication, electrolyte abnormality, alcohol withdrawal Plan: The patient has not had drank since several hours, she may be beginning to withdraw, she is tachycardic. We will be screening basic labs, serum ethanol, drug screen. Given the fall, we will be scanning her head and neck. It is reassuring that she is at her baseline mentation, she is not altered, no neuro deficits to suggest an intracranial hemorrhage. We will be loading with phenobarb 130 mg IV, her see was currently 11. She has been ambulatory, moving all extremities independently, she does not require x-rays, I do not have suspicion for a fracture or dislocation. I have independently reviewed the following tests: Labs: No leukocytosis, not anemic, no electrolyte abnormality, magnesium subtly low at 1.7 we will give 2 g of magnesium. LFTs further elevated, likely from her ongoing alcohol abuse. She has no belly pain, I am obtaining an ultrasound to see if she has developed cirrhosis. CT brain and c spine: CT/CT cervical spine wo IV con IMPRESSION: 1. No CT evidence of acute intracranial hemorrhage or edematous territorial infarction. 2. No CT evidence of acute cervical spine fracture or malalignment. Electronically signed by: Chang Mejia MD 05/29/2024 10:13 PM [facility] Liver ultrasound: US/US abdomen limited IMPRESSION: 1. Very limited exam. 2. Markedly echogenic liver consistent with hepatic steatosis. 3. Benign hepatic cyst. 4. No gallstones were seen, however Hudson's sign is positive. Electronically signed by: Magnus Anne MD 05/29/2024 10:46 PM [facility] Lab Data 05/29/24 20:00 05/29/24 20:00 Labs: Lab Results 05/29/24 05/29/24 Range/Units 20:00 21:03 WBC 10.4 (4.8-10.8) X10*3/uL RBC 3.71 L (4.20-5.50) X10*6/uL Hgb 13.2 (12.0-16.0) g/dl Hct 38.7 (37.0-47.0) % MCV 104.3 H (80.0-98.0) fL MCH 35.6 H (27.0-33.0) pg MCHC 34.1 (31.0-35.0) g/dl RDW 14.6 (11.0-16.0) % Plt Count 159 L D (160-400) X10*3/uL MPV 9.6 (9.4-12.3) fL Immature Gran % (Auto) 0.7 H (0.0-0.4) % Neut % (Auto) 68.3 (45-73) % Lymph % (Auto) 22.7 (20-40) % [place] % (Auto) 7.5 (2-11) % Eos % (Auto) 0.1 (0-4) % Baso % (Auto) 0.7 (0-2) % Lymph # (Auto) 2.4 (1.2-4.9) X10*3/uL [place] # (Auto) 0.8 (0.1-1.2) X10*3/uL Eos # (Auto) 0.0 (0.0-0.4) X10*3/uL Baso # (Auto) 0.1 (0.0-0.2) X10*3/uL Abs Immat Gran (auto) 0.07 H (0.00-0.03) X10*3/uL Absolute Neuts (auto) 7.1 (2.0-8.3) x10*3/uL Absolute Nucleated RBC 0.000 (0.0-0.012) X10*3/uL Nucleated RBC % (auto) 0.0 (0.0-0.2) /100WBC Sodium 139 (135-145) mmol/L Potassium 3.4 (3.3-5.1) mmol/L Chloride 100 (96-108) mmol/L Carbon Dioxide 16 L (22-29) mmol/L Anion Gap 26 H (12-20) BUN 5 L (9-16) mg/dL Creatinine 0.58 (0.5-1.4) mg/dL Estim Creat Clear Calc 89.8 Estimated GFR > 60 Random Glucose 130 H (60-115) mg/dL Calcium 8.9 D (8.4-10.2) mg/dL Magnesium 1.7 (1.6-2.6) mg/dL Total Bilirubin 3.6 H (0.0-1.0) mg/dL Direct Bilirubin 2.5 H (0.0-0.5) mg/dL AST 156 H (5-31) U/L ALT 27 (0-31) U/L Alkaline Phosphatase 204 H (39-117) U/L Total Creatine Kinase 73 (26-140) U/L Total Protein 9.4 H (6.5-8.0) g/dL Albumin 3.4 L (3.5-5.0) g/dL Urine Color Dark Yellow Urine Appearance Clear Urine pH 6.0 (5.0-9.0) Ur Specific [place] 1.010 (1.005-1.025) Urine Protein Trace (Neg-Trace) mg/dL Urine Glucose (UA) Negative (Negative) mg/dL Urine Ketones Trace (Negative) mg/dL Urine Blood Negative (Negative) Urine Nitrite Negative (Negative) Ur Leukocyte Esterase Trace H (Negative) Urine RBC 0-2 (0-2) /HPF Urine WBC 0-5 (0-5) /HPF Ur Squamous Epith Cells 11-20 (0-2) /HPF Urine Bacteria Trace (None Seen) Hyaline Casts 3-5 (0-2) /LPF Urine Opiates Screen Not Detected (Not Detect) Ur Buprenorphine Scrn Not Detected (Not Detect) ng/mL Ur Oxycodone Screen Not Detected (Not Detect) ng/mL Urine Methadone Screen Not Detected (Not Detect) ng/mL Urine Fentanyl Screen Not Detected (Not Detect) Ur Barbiturates Screen Not Detected (Not Detect) Ur Phencyclidine Scrn Not Detected (Not Detect) Ur Amphetamines Screen Not Detected (Not Detect) U Benzodiazepines Scrn Not Detected (Not Detect) Urine Cocaine Screen Not Detected (Not Detect) U Marijuana (THC) Screen Not Detected (Not Detect) Ethyl Alcohol 123 mg/dL Discharge Plan Discharge Clinical Impression: Alcohol withdrawal Patient Disposition: Still a Patient Prescriptions: No Action (DME) back brace Misc See Rx Instructions .Route Qty: 1 0RF Rx Instructions: As directed cholecalciferol (vitamin D3) 1,250 mcg (50,000 unit) capsule 1,250 mcg PO QWEEK 90 Days Qty: 13 0RF calcium carbonate-vitamin D3 1,000 mg-20 mcg (800 unit) tablet 1 tab PO BID Qty: 180 0RF Rx Instructions: This is in addition to to the vitamin-D 03029 units weekly naltrexone 50 mg tablet 50 mg PO DAILY Qty: 30 1RF duloxetine [Cymbalta] 20 mg capsule,delayed release(DR/EC) 20 mg PO DAILY Qty: 30 1RF Print Language: Yakut
[2024-05-29 20:05] LABS: Basophils Absolute Auto 0.1 X10*3/uL (0.0-0.2); Basophils Percent Auto 0.7 % (0-2); Eosinophils Percent Auto 0.1 % (0-4); Hematocrit 38.7 % (37.0-47.0); Hemoglobin 13.2 g/dl (12.0-16.0); Imm Gran Abs Auto 0.07 X10*3/uL (0.00-0.03); Imm Gran Pct Auto 0.7 % (0.0-0.4); Lymphocytes Absolute Auto 2.4 X10*3/uL (1.2-4.9); Lymphocytes Percent Auto 22.7 % (20-40); Mean Corpuscular HGB Conc 34.1 g/dl (31.0-35.0); Mean Corpuscular Hemoglobin 35.6 pg (27.0-33.0); Mean Corpuscular Volume 104.3 fL (80.0-98.0); Mean Platelet Volume 9.6 fL (9.4-12.3); Monocytes Absolute Auto 0.8 X10*3/uL (0.1-1.2); Monocytes Percent Auto 7.5 % (2-11); Neutrophils Absolute Auto 7.1 x10*3/uL (2.0-8.3); Neutrophils Percent Auto 68.3 % (45-73); Platelet Count 159 X10*3/uL (160-400); Red Blood Count 3.71 X10*6/uL (4.20-5.50); Red Cell Distribution Width 14.6 % (11.0-16.0); White Blood Count 10.4 X10*3/uL (4.8-10.8)
[2024-05-29] MEDS: PHENobarbitaL sodium 130 MG/ML VIAL IVPUSH ×2 (20:26→23:28)
[2024-05-29] MEDS: 0.9 % Sodium Chloride 1,000 ML 999 ML IV (20:27)
[2024-05-29 20:29] LABS: Alanine Aminotransferase 27 U/L (0-31); Albumin Level 3.4 g/dL (3.5-5.0); Alkaline Phosphatase 204 U/L (39-117); Anion Gap 26 (12-20); Aspartate Amino Transferase 156 U/L (5-31); Bilirubin Direct 2.5 mg/dL (0.0-0.5); Bilirubin Total 3.6 mg/dL (0.0-1.0); Blood Urea Nitrogen 5 mg/dL (9-16); Calcium 8.9 mg/dL (8.4-10.2); Carbon Dioxide 16 mmol/L (22-29); Chloride 100 mmol/L (96-108); Creatinine Clr Calc Pharmacy 89.8; Estimated Glomerular Filt Rate > 60; Ethanol 123 mg/dL; Glucose Random 130 mg/dL (60-115); Magnesium 1.7 mg/dL (1.6-2.6); Potassium 3.4 mmol/L (3.3-5.1); Sodium 139 mmol/L (135-145); Total Protein 9.4 g/dL (6.5-8.0)
[2024-05-29 21:36] LABS: Appearance Urine Clear; Color Urine Dark Yellow; Glucose Urine UA Negative (Negative); Leukocyte Esterase Urine Trace (Negative); Nitrite Urine Negative (Negative); UMIC TRIGGER UACC YES; Urine Blood Negative (Negative); Urine Ketones Trace mg/dL (Negative); Urine Protein Trace mg/dL (Neg-Trace)
--- NOTE | 2024-05-29 21:37 | PC.NURSE ---
Call placed to pharmacy regarding Mg out of stock in the [facility]. Pharmacy will bring it down.
[2024-05-29 21:41] LABS: Bacteria Urine Trace (None Seen); RBC Urine 0-2 /HPF (0-2); WBC Urine 0-5 /HPF (0-5)
[2024-05-29 21:47] LABS: Amphetamine Screen Urine Not Detected (Not Detect); Barbiturates, Urine Not Detected (Not Detect); Benzodiazepines Screen Urine Not Detected (Not Detect); Buprenorphine Scr Not Detected (Not Detect); Cannabinoid Screen Urine Not Detected (Not Detect); Cocaine Screen Urine Not Detected (Not Detect); Fentanyl, urine Not Detected (Not Detect); Methadone Screen, Urine Not Detected (Not Detect); Opiate Screen Urine Not Detected (Not Detect); Oxycodone Screen Urine Not Detected (Not Detect); Phencyclidine Screen Urine Not Detected (Not Detect)
[2024-05-29 21:59] VITALS: BP 128/74; PULSE 116; RESP 22; TEMP 36.8; O2SAT 97
[2024-05-29] MEDS: Magnesium Sulfate/H2O 2 GM/50 ML PIGGYBACK IV (22:43)
[2024-05-29] MEDS: Ibuprofen 600 MG TABLET PO (22:55)
[2024-05-30] VITALS (9 sets, daily range): BP systolic 106–143; BP diastolic 57–79; PULSE 105–127; RESP 17–25; TEMP 36.4–36.9; O2SAT 93–98
[2024-05-30] MEDS: PHENobarbitaL sodium 130 MG/ML IM ONCE 225 MG IM (02:58)
[2024-05-30] MEDS: PHENobarbitaL sodium 130 MG/ML VIAL IM Q3Hx2 165 MG IM ×2 (06:34→09:06)
--- NOTE | 2024-05-30 11:03 | PC.NURSE ---
when asked about home medications: pt states she takes calcium and vit D. The vitamin D is weekly and she says she takes it on fridays and last took it last sunday. She has two recent prescriptions that were filled at the pharmacy Duloxetine 20mg daily and Naltrexone 50mg daily. She has a vague memory of these being prescribed but does not remember if she has been taking them. Not added to med rec at this time
--- NOTE | 2024-05-30 12:38 | PC.NURSE ---
contacted CARE team who reached out to monomer recovery supervisor
--- NOTE | 2024-05-30 13:03 | MHC.RECOVSUP ---
pt was avoiding topic of AUD when we first met, but discussion became juan manuel after a could minutes. pt is open to MATs for AUD and I have asked Valerie Olmedo to see her if possible. (pt was perscribed suboxone, but did not take it to her recollection) pt reports consuming a half gallon (handle) of vodka every 3 days, which is about 13 shots. I completed Elementary Teacher referral for her, sent to Mele Tsai at [facility].
--- NOTE | 2024-05-30 13:11 | PHA.MEDREC ---
Pharmacy Consult ? Medication Reconciliation Pharmacy has reviewed the medication reconciliation done by nursing staff.
--- NOTE | 2024-05-30 13:26 | PC.NURSE ---
pt's skin ntoiced to be very slightly yellowed, sclera of eyes also has some yellowing. pt reports she has noticed this a little bit and states it is probably from drinking
--- NOTE | 2024-05-30 14:33 | PM.IMHP ---
History of Present Illness Date of Service: 05/30/24 Attending physician on admission: Juancarlos Faye Chief Complaint: Fall at home, alcohol withdrawal Pt is a 59-year-old female with a PMH significant for?severe osteoporosis with known lumbar compound fractures, anxiety, and alcohol use disorder who presents to the ED after mechanical fall at home. Patient reports she tripped over her pants as she was putting them on and struck her head and left shoulder and elbow on a cement floor. No loss of consciousness, lightheadedness, or dizziness, though did have a headache. Denies acute vision changes. Apparently patient refused to get up off of the floor or allow family members to help her up so EMS was called. While in the ED patient experienced nausea, vomiting, palpations, and increased anxiety, and was started on phenobarb protocol by ED providers. Patient reports she buys half liters of vodka and drinks about 3/4 of one daily. Currently patient is resting comfortably in bed though continues to experience some nausea. No abdominal pain. Denies left shoulder or elbow pain. Chronic lower back pain at baseline. Currently patient reports no tremors, audio or visual hallucinations, or increased anxiety. In the ED pt was tachycardic up to 127, tachypneic up to 25, and with variable BP mostly normotensive. Labs were grossly unremarkable and around baseline for patient. No leukocytosis. Stable H&H. No significant electrolyte abnormalities. Renal function WNL. Hepatic function showing transaminitis with bilirubin 3.6, AST 156, and alk-phos 204, around baseline. UA negative for UTI. Alcohol level at time of admission 123. CTA of head negative for acute intracranial hemorrhage or edematous territorial infarction. CT of cervical spine negative for acute fracture or malalignment. Abdominal ultrasound limited, but showed markedly echogenic liver consistent with hepatic steatosis with benign hepatic cyst. No gallstones were seen, however showed positive Hudson's sign. EKG demonstrated sinus tachycardia with nonspecific ST abnormalityc and QT of 492. Pt was treated with IVF, Mag sulfate, ibuprofen, and started on phenobarb protocol. Pt will be admitted to the hospital for treatment and further evaluation of acute alcohol withdrawal. Review of Systems Review of Systems: Negative except for that stated in the HPI Yes all other systems are reviewed and are negative [facility] Medical History Depression with anxiety Osteoporosis Acute back pain with radiculopathy Papanicolaou smear declined Immunization refused Generalized anxiety disorder Smoker unmotivated to quit Alcohol use disorder Elevated liver enzymes Essential hypertension Colonoscopy refused Refused influenza vaccine Mixed dyslipidemia Social History Household Members: Spouse and Children Housing: House Do you presently have visiting nurse or other home services: No Alcohol intake: current Alcohol intake frequency: 3 or more drinks per day Patient Tobacco Use Status: Current everyday Tobacco user Tobacco use type: Cigarette Cigarette Packs Per Day: 1 Cigarettes Per Day: 20.0 Years Smoked: 40 & years e-Cigarette/Vaping Use: Never Used Second Hand Smoke Exposure: Yes Advance Directives Date on File: 04/16/20 service: No Current occupational status: unemployed Cognitive needs: No Hearing needs: No Vision needs: Yes Meds Allergies Allergy/AdvReac Type Severity Reaction Status Date / Time No Known Allergies Allergy Verified 05/29/24 19:52 Active Medications: Current Medications Pharmacy Consult (Consult Rx Etoh Phenob Im/Po) 1 each MISCELLANE ONCE PRN; Protocol PRN Reason: Consult order Phenobarbital (Phenobarbital 15 Mg Tablet) 45 mg PO BID ANN; Protocol Stop: 06/01/24 09:01 Phenobarbital (Phenobarbital 15 Mg Tablet) 15 mg PO BID ANN; Protocol Stop: 06/03/24 09:01 Phenobarbital (Phenobarbital 15 Mg Tablet) 15 mg PO DAILY [facility]; Protocol Stop: 06/05/24 09:01 Physical Exam Vital Signs and Narrative: Vital Signs: Last Vital Signs Temp 97.9 F 05/30/24 14:14 Pulse 117 H 05/30/24 14:14 Resp 18 05/30/24 14:14 BP 106/57 L 05/30/24 14:14 Pulse Ox 94 05/30/24 14:14 O2 Del Method Room Air 05/30/24 14:14 BMI result Body Mass Index 18.7 General: AOx3, no acute distress Resp: CTA bilaterally CVS: S1, S2, regular rate, tachycardic. No murmurs, rubs, or gallops GI: +BS, NT, no distention. Negative Hudson sign Skin: Warm, dry Neuro: Cranial nerves II-XII grossly intact bilaterally. Motor grossly intact bilaterally. Strength of upper extremities bilaterally intact and symmetric. Reduced symmetric strength 3/5 of lower extremities bilaterally. No tremors noted. Musculoskeletal: Left shoulder and elbow nontender to palpation and during ROM. Preserved ROM of left shoulder and elbow. Extremities: No edema Psych: Appropriate affect Results Labs 05/29/24 20:00 05/29/24 20:00 Labs: Laboratory Results - last 24 hr 05/29/24 05/29/24 20:00 21:03 MCV 104.3 H MCH 35.6 H MCHC 34.1 RDW 14.6 Plt Count 159 L D MPV 9.6 Immature Gran % (Auto) 0.7 H Neut % (Auto) 68.3 Lymph % (Auto) 22.7 [place] % (Auto) 7.5 Eos % (Auto) 0.1 Baso % (Auto) 0.7 Lymph # (Auto) 2.4 [place] # (Auto) 0.8 Eos # (Auto) 0.0 Baso # (Auto) 0.1 Abs Immat Gran (auto) 0.07 H Absolute Neuts (auto) 7.1 Absolute Nucleated RBC 0.000 Nucleated RBC % (auto) 0.0 Anion Gap 26 H Estim Creat Clear Calc 89.8 Estimated GFR > 60 Random Glucose 130 H Calcium 8.9 D Magnesium 1.7 Total Bilirubin 3.6 H Direct Bilirubin 2.5 H AST 156 H ALT 27 Alkaline Phosphatase 204 H Total Creatine Kinase 73 Total Protein 9.4 H Albumin 3.4 L Urine Color Dark Yellow Urine Appearance Clear Urine pH 6.0 Ur Specific [place] 1.010 Urine Protein Trace Urine Glucose (UA) Negative Urine Ketones Trace Urine Blood Negative Urine Nitrite Negative Ur Leukocyte Esterase Trace H Urine RBC 0-2 Urine WBC 0-5 Ur Squamous Epith Cells 11-20 Urine Bacteria Trace Hyaline Casts 3-5 Urine Opiates Screen Not Detected Ur Buprenorphine Scrn Not Detected Ur Oxycodone Screen Not Detected Urine Methadone Screen Not Detected Urine Fentanyl Screen Not Detected Ur Barbiturates Screen Not Detected Ur Phencyclidine Scrn Not Detected Ur Amphetamines Screen Not Detected U Benzodiazepines Scrn Not Detected Urine Cocaine Screen Not Detected U Marijuana (THC) Screen Not Detected Ethyl Alcohol 123 Imaging Radiologist's Impressions: Impressions Head CT 05/29/24 20:[address]: 1[address] evidence of acute intracranial hemorrhage or edematous territorial infarction. 2. No CT evidence of acute cervical spine fracture or malalignment. Electronically signed by: Chang Mejia MD 05/29/2024 10:13 PM EST RP Cervical Spine CT 05/29/24 21:01 IMPRESSION: 1. No CT evidence of acute intracranial hemorrhage or edematous territorial infarction. 2. No CT evidence of acute cervical spine fracture or malalignment. Electronically signed by: Chang Mejia MD 05/29/2024 10:13 PM EST RP Abdomen Ultrasound 05/29/24 21:22 IMPRESSION: 1. Very limited exam. 2. Markedly echogenic liver consistent with hepatic steatosis. 3. Benign hepatic cyst. 4. No gallstones were seen, however Hudson's sign is positive. Electronically signed by: Magnus Anne MD 05/29/2024 10:46 PM EST RP Assessment and Plan (1) Alcohol withdrawal: Qualifiers: Complication of substance-induced condition: with delirium Qualified Code(s): F10.931 - Alcohol use, unspecified with withdrawal delirium Status: Acute Plan Pt is a 59-year-old female with a PMH significant for?severe osteoporosis with known lumbar compound fractures, anxiety, and alcohol use disorder who presents to the ED after mechanical fall at home. Pt was treated with IVF, Mag sulfate, ibuprofen, and started on phenobarb protocol. Pt will be admitted to the hospital for treatment and further evaluation of acute alcohol withdrawal. Acute alcohol withdrawal Reports drinking 3/4 of a half gallon of vodka daily Had increased anxiety, nausea, vomiting, tremors yesterday Placed on phenobarb protocol in the ED Continue phenobarb protocol Monitor lytes, Mag Daily multivitamin, folic acid, thiamine, famotidine Addiction medicine consult Monitor on telemetry Mechanical fall at home Multifactorial: Generalized weakness, alcohol intoxication Imaging in the ED negative for acute fracture or subluxation PT evaluation Full Code Attending:?Dr. Faye DVT Prophylaxis: Lovenox Pt will require a hospitalization of at least two nights for treatment of?acute alcohol withdrawal requiring phenobarbital protocol, and close monitoring of cardiac function and electrolytes. Patient will also need physical therapy evaluation for possible STR placement. Quality Stroke Does the patient have a stroke diagnosis?: No VTE Prior VTE?: No VTE Risk Level:: Medical - moderate - high VTE Device Contraindication: Treatment Not Indicated VTE Drug Contraindication: N/A - Med Ordered
[2024-05-30] MEDS: Enoxaparin Sodium 40 MG/0.4 ML SYRINGE SUBCUT (15:39)
[2024-05-30] MEDS: 0.9 % Sodium Chloride Flush 3 ML SYRINGE IVFLUSH ×2 (15:40→21:06)
[2024-05-30] MEDS: Nicotine 21 MG PATCH.TD24 TRANSDERMA (15:40)
--- NOTE | 2024-05-30 15:44 | PC.NURSE ---
patient awake and alert. skin pwd, resp even and non labored, speaking in full, clear sentences. denies pain. ST via tele at 109, VSS. CIWA 0. patient states she is feeling good at this time. patient awaiting admission.
[2024-05-30] MEDS: Folic Acid 1 MG TABLET PO (17:04)
[2024-05-30] MEDS: Multivitamin TABLET 1 TAB PO (17:05)
[2024-05-30] MEDS: Famotidine 20 MG TABLET PO (17:05)
[2024-05-30] MEDS: Thiamine HCL 100 MG TABLET PO (17:05)
[2024-05-30] MEDS: PHENobarbitaL 15 MG TABLET 45 MG PO (21:06)
[2024-05-31] VITALS (7 sets, daily range): BP systolic 95–123; BP diastolic 57–77; PULSE 99–111; RESP 18–20; TEMP 36.5–37.1; O2SAT 94–97
[2024-05-31] MEDS: Multivitamin TABLET 1 TAB PO (08:25)
[2024-05-31] MEDS: Famotidine 20 MG TABLET PO ×2 (08:25→22:28)
[2024-05-31] MEDS: Thiamine HCL 100 MG TABLET PO (08:25)
[2024-05-31] MEDS: Folic Acid 1 MG TABLET PO (08:25)
[2024-05-31] MEDS: PHENobarbitaL 15 MG TABLET 45 MG PO ×2 (08:25→22:28)
[2024-05-31] MEDS: 0.9 % Sodium Chloride Flush 3 ML SYRINGE IVFLUSH ×3 (08:26→22:29)
[2024-05-31] MEDS: Nicotine 21 MG PATCH.TD24 TRANSDERMA (08:30)
[2024-05-31 08:31] LABS: Anion Gap 14 (12-20); Blood Urea Nitrogen 9 mg/dL (9-16); Calcium 9.4 mg/dL (8.4-10.2); Carbon Dioxide 26 mmol/L (22-29); Chloride 98 mmol/L (96-108); Creatinine Clr Calc Pharmacy 85.4; Estimated Glomerular Filt Rate > 60; Glucose Random 105 mg/dL (60-115); Magnesium 1.7 mg/dL (1.6-2.6); Potassium 3.1 mmol/L (3.3-5.1); Sodium 135 mmol/L (135-145)
--- NOTE | 2024-05-31 09:25 | P.PNIM_ITS ---
Subjective Subjective Date of Service: 05/31/24 Interval History: tremulous Physical Exam 2 Vital Signs: Vital Signs: Last Vital Signs Temp 97.7 F 05/31/24 07:22 Pulse 109 H 05/31/24 07:22 Resp 19 05/31/24 07:22 BP 123/77 05/31/24 07:22 Pulse Ox 97 05/31/24 07:22 O2 Del Method Room Air 05/31/24 03:46 BMI result Body Mass Index 18.7 General: AO X 3, no acute distress, mild jaundice Resp: CTA bilateral, no accessory muscles used CVS: S1,S2,RRR GI: soft, non tender, non distended Neuro: motor grossly intact, alert, tremulous Psych: appropriate affect, appropriate insight Objective Data Active Medications Acetaminophen (Acetaminophen 325 Mg Tablet) 650 mg PO Q6H PRN PRN Reason: Pain, Mild (Pain Scale 1-3), fever or headache Benzonatate (Benzonatate 100 Mg Capsule) 100 mg PO TID PRN PRN Reason: Cough Calcium Carbonate (Calcium Carbonate 750 Mg Tab.Chew) 750 mg PO Q4H PRN PRN Reason: Heartburn Clonidine HCl (Clonidine Hcl 0.1 Mg Tablet) 0.1 mg PO BID PRN; Protocol PRN Reason: anxiety/restlessness Enoxaparin Sodium (Enoxaparin Sodium 40 Mg/0.4 Ml Syringe) 40 mg SUBCUT Q24H [facility] Last Admin: 05/30/24 15:39 Dose: 40 mg Documented By: GURDEEP Famotidine (Famotidine 20 Mg Tablet) 20 mg PO BID [facility] Last Admin: 05/31/24 08:25 Dose: 20 mg Documented By: BORIS Folic Acid (Folic Acid 1 Mg Tablet) 1 mg PO DAILY [facility] Stop: 06/02/24 15:49 Last Admin: 05/31/24 08:25 Dose: 1 mg Documented By: BORIS Magnesium Hydroxide (Milk Of Magnesia 30 Ml Oral.Susp) 30 ml PO DAILY PRN PRN Reason: Constipation Multivitamins/Vitamin C (Multivitamin Tablet) 1 tab PO DAILY [facility] Stop: 06/02/24 15:49 Last Admin: 05/31/24 08:25 Dose: 1 tab Documented By: BORIS Nicotine (Nicotine 21 Mg Patch.Td24) 21 mg TRANSDERMA DAILY [facility] Last Admin: 05/31/24 08:30 Dose: 21 mg Documented By: OBRIS Ondansetron HCl (Ondansetron Hcl 4 Mg/2 Ml Vial) 4 mg IVPUSH Q8H PRN PRN Reason: Nausea and Vomiting Pharmacy Consult (Consult Rx Etoh Phenob Im/Po) 1 each MISCELLANE ONCE PRN; Protocol PRN Reason: Consult order Phenobarbital (Phenobarbital 15 Mg Tablet) 45 mg PO BID [facility]; Protocol Stop: 06/01/24 09:01 Last Admin: 05/31/24 08:25 Dose: 45 mg Documented By: BORIS Phenobarbital (Phenobarbital 15 Mg Tablet) 15 mg PO BID [facility]; Protocol Stop: 06/03/24 09:01 Phenobarbital (Phenobarbital 15 Mg Tablet) 15 mg PO DAILY [facility]; Protocol Stop: 06/05/24 09:01 Sodium Chloride (0.9 % Sodium Chloride Flush 3 Ml Syringe) 3 ml IVFLUSH QSHIFT [facility] Last Admin: 05/31/24 08:26 Dose: 3 ml Documented By: BORIS Thiamine HCl (Thiamine Hcl 100 Mg Tablet) 100 mg PO DAILY [facility] Stop: 06/02/24 15:49 Last Admin: 05/31/24 08:25 Dose: 100 mg Documented By: BORIS Labs 05/29/24 20:00 05/31/24 07:27 Labs: Laboratory Results - last 24 hr 05/31/24 07:27 Hold Purple Top SEE NOTE Anion Gap 14 Estim Creat Clear Calc 85.4 Estimated GFR > 60 Random Glucose 105 Calcium 9.4 Magnesium 1.7 Assessment and Plan (1) Alcohol use disorder: Status: Acute Plan 59F PMH alcohol dependence, osteoporosis presented with mechanical fall complicated by alcohol withdrawal Alcohol dependence with acute withdrawal and mild alcoholic hepatitis Continue phenobarb, monitor LFTs, Addiction team eval Vitamins Mechanical fall No trauma, PT eval Smoking cessation DVT prophylaxis with Lovenox Full Code reason for continued hospitalization: Still with withdrawal Quality Stroke Does the patient have a stroke diagnosis?: No VTE Prior VTE?: No VTE Risk Level:: Medical - moderate - high VTE Device Contraindication: Treatment Not Indicated VTE Drug Contraindication: N/A - Med Ordered
--- NOTE | 2024-05-31 09:34 | MHC.CM.PN ---
IMM Pt lives with spouse, she does not have home health services, no DME, said she needs a walker and requests a script for one at [facility]. PCP confirmed: Dr Lane. HCP discussed, she will complete form and it will be added to chart. Transportation home to be provided by family. DCP: home, self care. CM to follow for DC needs.
[2024-05-31] MEDS: Potassium Chloride ER 20 MEQ TAB.ER.PRT 40 MEQ PO (10:57)
--- NOTE | 2024-05-31 11:38 | HO.ADDICTCON ---
History of Present Illness Date of Service: 05/30/2024 Chief Complaint: Alcohol withdrawal, fall at home Reason for Consult: AUD HPI Narrative: Late entry: Patient presented to ED after a fall at home, and family reporting that she did not want to get off the floor Known dx of AUD, and reportedly drinking prior to fall. Started on phenobarbital overnight while in ED. Seen by this script writer while in ED. Chart review showed that patient was recently seen by provider Criselda and Naltrexone was prescribed. Patient reports she did not start taking it I never do anything right anyway, so I'm sure I messed that up too . Guarded, flat affect. Denies withdrawal sx when seen by this script writer. CIWA score 4 at time of evaluation (anxiety). Not feeling up to discussing alcohol use at time of interview, but agreeable to being seen later in admission Past Psychiatric History: no oupt or IPLOC Review of Systems Constitutional: Reports as per HPI Diagnostics Vital Signs (24Hr): Vital Signs - 24 hr 05/30/24 14:14 05/30/24 15:35 05/30/24 17:00 Temperature 97.9 F 98.2 F 98.3 F Pulse Rate 117 H 108 H 107 H Respiratory Rate 18 18 18 Blood Pressure 106/57 L 117/66 107/69 Pulse Oximetry 94 94 93 Oxygen Delivery Method Room Air Room Air Room Air 05/30/24 19:18 05/30/24 23:25 05/31/24 03:46 Temperature 98.1 F 98.5 F 98.5 F Pulse Rate 105 H 105 H 111 H Respiratory Rate 18 18 18 Blood Pressure 112/69 113/72 123/75 Pulse Oximetry 93 95 95 Oxygen Delivery Method Room Air Room Air Room Air 05/31/24 07:22 05/31/24 11:01 05/31/24 11:20 Temperature 97.7 F 97.8 F Pulse Rate 109 H 110 H 109 H Respiratory Rate 19 18 Blood Pressure 123/77 123/76 Pulse Oximetry 97 97 96 Oxygen Delivery Method Room Air BMI result Body Mass Index 18.7 Labs 05/29/24 20:00 05/31/24 07:27 Labs: Laboratory Results - last 48 hr 05/29/24 05/29/24 05/31/24 20:00 21:03 07:27 WBC 10.4 RBC 3.71 L Hgb 13.2 Hct 38.7 MCV 104.3 H MCH 35.6 H MCHC 34.1 RDW 14.6 Plt Count 159 L D MPV 9.6 Immature Gran % (Auto) 0.7 H Neut % (Auto) 68.3 Lymph % (Auto) 22.7 [place] % (Auto) 7.5 Eos % (Auto) 0.1 Baso % (Auto) 0.7 Lymph # (Auto) 2.4 [place] # (Auto) 0.8 Eos # (Auto) 0.0 Baso # (Auto) 0.1 Abs Immat Gran (auto) 0.07 H Absolute Neuts (auto) 7.1 Absolute Nucleated RBC 0.000 Nucleated RBC % (auto) 0.0 Hold Purple Top SEE NOTE Sodium 139 135 Potassium 3.4 3.1 L Chloride 100 98 Carbon Dioxide 16 L 26 Anion Gap 26 H 14 BUN 5 L 9 Creatinine 0.58 0.61 Estim Creat Clear Calc 89.8 85.4 Estimated GFR > 60 > 60 Random Glucose 130 H 105 Calcium 8.9 D 9.4 Magnesium 1.7 1.7 Total Bilirubin 3.6 H Direct Bilirubin 2.5 H AST 156 H ALT 27 Alkaline Phosphatase 204 H Total Creatine Kinase 73 Total Protein 9.4 H Albumin 3.4 L Urine Color Dark Yellow Urine Appearance Clear Urine pH 6.0 Ur Specific [place] 1.010 Urine Protein Trace Urine Glucose (UA) Negative Urine Ketones Trace Urine Blood Negative Urine Nitrite Negative Ur Leukocyte Esterase Trace H Urine RBC 0-2 Urine WBC 0-5 Ur Squamous Epith Cells 11-20 Urine Bacteria Trace Hyaline Casts 3-5 Urine Opiates Screen Not Detected Ur Buprenorphine Scrn Not Detected Ur Oxycodone Screen Not Detected Urine Methadone Screen Not Detected Urine Fentanyl Screen Not Detected Ur Barbiturates Screen Not Detected Ur Phencyclidine Scrn Not Detected Ur Amphetamines Screen Not Detected U Benzodiazepines Scrn Not Detected Urine Cocaine Screen Not Detected U Marijuana (THC) Screen Not Detected Ethyl Alcohol 123 Imaging Radiology Impressions: ITS Impressions Head CT 05/29/24 20:05 IMPRESSION: 1. No CT evidence of acute intracranial hemorrhage or edematous territorial infarction. 2. No CT evidence of acute cervical spine fracture or malalignment. Electronically signed by: Chang Mejia MD 05/29/2024 10:13 PM [facility] Cervical Spine CT 05/29/24 21:01 IMPRESSION: 1. No CT evidence of acute intracranial hemorrhage or edematous territorial infarction. 2. No CT evidence of acute cervical spine fracture or malalignment. Electronically signed by: Chang Mejia MD 05/29/2024 10:13 PM EST RP Abdomen Ultrasound 05/29/24 21:22 IMPRESSION: 1. Very limited exam. 2. Markedly echogenic liver consistent with hepatic steatosis. 3. Benign hepatic cyst. 4. No gallstones were seen, however Hudson's sign is positive. Electronically signed by: Magnus Anne MD 05/29/2024 10:46 PM EST RP Mental Status Exam Mental Status Exam Patient Appearance: Appropriate Level of Consciousness: Awake and Alert Patient Behavior: Guarded and Passive Mood Description: Flat Affect Description: Anxious and Flat Medications Medications Current Medications Acetaminophen (Acetaminophen 325 Mg Tablet) 650 mg PO Q6H PRN PRN Reason: Pain, Mild (Pain Scale 1-3), fever or headache Benzonatate (Benzonatate 100 Mg Capsule) 100 mg PO TID PRN PRN Reason: Cough Calcium Carbonate (Calcium Carbonate 750 Mg Tab.Chew) 750 mg PO Q4H PRN PRN Reason: Heartburn Clonidine HCl (Clonidine Hcl 0.1 Mg Tablet) 0.1 mg PO BID PRN; Protocol PRN Reason: anxiety/restlessness Enoxaparin Sodium (Enoxaparin Sodium 40 Mg/0.4 Ml Syringe) 40 mg SUBCUT Q24H [facility] Last Admin: 05/30/24 15:39 Dose: 40 mg Famotidine (Famotidine 20 Mg Tablet) 20 mg PO BID [facility] Last Admin: 05/31/24 08:25 Dose: 20 mg Folic Acid (Folic Acid 1 Mg Tablet) 1 mg PO DAILY [facility] Stop: 06/02/24 15:49 Last Admin: 05/31/24 08:25 Dose: 1 mg Magnesium Hydroxide (Milk Of Magnesia 30 Ml Oral.Susp) 30 ml PO DAILY PRN PRN Reason: Constipation Multivitamins/Vitamin C (Multivitamin Tablet) 1 tab PO DAILY [facility] Stop: 06/02/24 15:49 Last Admin: 05/31/24 08:25 Dose: 1 tab Nicotine (Nicotine 21 Mg Patch.Td24) 21 mg TRANSDERMA DAILY [facility] Last Admin: 05/31/24 08:30 Dose: 21 mg Ondansetron HCl (Ondansetron Hcl 4 Mg/2 Ml Vial) 4 mg IVPUSH Q8H PRN PRN Reason: Nausea and Vomiting Pharmacy Consult (Consult Rx Etoh Phenob Im/Po) 1 each MISCELLANE ONCE PRN; Protocol PRN Reason: Consult order Phenobarbital (Phenobarbital 15 Mg Tablet) 45 mg PO BID [facility]; Protocol Stop: 06/01/24 09:01 Last Admin: 05/31/24 08:25 Dose: 45 mg Phenobarbital (Phenobarbital 15 Mg Tablet) 15 mg PO BID [facility]; Protocol Stop: 06/03/24 09:01 Phenobarbital (Phenobarbital 15 Mg Tablet) 15 mg PO DAILY [facility]; Protocol Stop: 06/05/24 09:01 Sodium Chloride (0.9 % Sodium Chloride Flush 3 Ml Syringe) 3 ml IVFLUSH QSHIFT [facility] Last Admin: 05/31/24 08:26 Dose: 3 ml Thiamine HCl (Thiamine Hcl 100 Mg Tablet) 100 mg PO DAILY [facility] Stop: 06/02/24 15:49 Last Admin: 05/31/24 08:25 Dose: 100 mg Allergies Allergies Allergy/AdvReac Type Severity Reaction Status Date / Time No Known Allergies Allergy Verified 05/29/24 19:52 Assessment & Plan Assessment & Plan (1) Alcohol use disorder: Status: Acute Assessment and Plan: phenobarb protocol in place LFTs elevated--recheck prior to starting naltrexone will follow up to discuss recovery supports Total time managing care of this patient today ___30_ minutes. PMFSH Past Medical History Medical History Depression with anxiety Osteoporosis Acute back pain with radiculopathy Papanicolaou smear declined Immunization refused Generalized anxiety disorder Smoker unmotivated to quit Alcohol use disorder Elevated liver enzymes Essential hypertension Colonoscopy refused Refused influenza vaccine Mixed dyslipidemia Social History Social History Household Members: Spouse and Family Housing: House Do you presently have visiting nurse or other home services: No Alcohol intake: current Alcohol intake frequency: 3 or more drinks per day Patient Tobacco Use Status: Current everyday Tobacco user Tobacco use type: Cigarette Cigarette Packs Per Day: 1 Cigarettes Per Day: 20.0 Years Smoked: 40 & years Smoked in Last 30 Days: Yes e-Cigarette/Vaping Use: Never Used Patient Interested in Nicotine Replacement: Yes Second Hand Smoke Exposure: Yes Use of substances other than those prescribed or required for medical reasons: No Currently Displaying Signs/Symptoms of Drug Intoxication Withdrawal: No Have you been hit, kicked, punched, or otherwise hurt by someone within the past year? If so, by whom?: No Do you feel safe in your current relationship?: No Current Relationship Is there a partner from a previous relationship who is making you feel unsafe now?: No Are you made to feel afraid or neglected: No Advance Directives: No Advance Directives Information Provided: No Advance Directives Date on File: 04/16/20 Do you have a plan to hurt others: No Plan Recently lost weight without trying: Yes How much weight loss: 14-23 pounds Eating poorly because of decreased appetite: Yes Nutrition screen score: 5 Nutrition Risks: No Nutritional Risk Patient : No : No Poor oral hygiene: No service: No Current occupational status: unemployed Cognitive needs: No Hearing needs: No Vision needs: Yes
[2024-05-31] MEDS: Magnesium Oxide 400 MG TABLET 800 MG PO (13:02)
[2024-05-31] MEDS: Enoxaparin Sodium 40 MG/0.4 ML SYRINGE SUBCUT (16:03)
[2024-05-31] MEDS: Acetaminophen 325 MG TABLET 650 MG PO (22:27)
[2024-06-01 04:00] VITALS: BP 122/83; PULSE 105; RESP 20; TEMP 36.3; O2SAT 96
[2024-06-01 06:52] LABS: INTERNATIONAL NORM RATIO 1.8 (0.9-1.1); Prothrombin Time 21.2 SEC (10.9-12.4)
[2024-06-01 06:55] LABS: Hematocrit 32.9 % (37.0-47.0); Hemoglobin 11.6 g/dl (12.0-16.0); Mean Corpuscular HGB Conc 35.3 g/dl (31.0-35.0); Mean Corpuscular Hemoglobin 36.4 pg (27.0-33.0); Mean Corpuscular Volume 103.1 fL (80.0-98.0); Mean Platelet Volume 10.5 fL (9.4-12.3); Platelet Count 110 X10*3/uL (160-400); Red Blood Count 3.19 X10*6/uL (4.20-5.50); Red Cell Distribution Width 14.8 % (11.0-16.0); White Blood Count 7.4 X10*3/uL (4.8-10.8)
[2024-06-01 07:11] LABS: Alanine Aminotransferase 18 U/L (0-31); Albumin Level 2.9 g/dL (3.5-5.0); Alkaline Phosphatase 164 U/L (39-117); Anion Gap 12 (12-20); Aspartate Amino Transferase 91 U/L (5-31); Bilirubin Direct 3.3 mg/dL (0.0-0.5); Bilirubin Total 4.6 mg/dL (0.0-1.0); Blood Urea Nitrogen 8 mg/dL (9-16); Calcium 9.5 mg/dL (8.4-10.2); Carbon Dioxide 29 mmol/L (22-29); Chloride 99 mmol/L (96-108); Creatinine Clr Calc Pharmacy 85.4; Estimated Glomerular Filt Rate > 60; Glucose Fasting 97 mg/dL (60-99); Magnesium 1.6 mg/dL (1.6-2.6); Potassium 3.7 mmol/L (3.3-5.1); Sodium 136 mmol/L (135-145); Total Protein 7.7 g/dL (6.5-8.0)
[2024-06-01] MEDS: PHENobarbitaL 15 MG TABLET 45 MG PO (07:48)
[2024-06-01] MEDS: Magnesium Oxide 400 MG TABLET 800 MG PO (07:49)
[2024-06-01] MEDS: Multivitamin TABLET 1 TAB PO (07:49)
[2024-06-01] MEDS: Famotidine 20 MG TABLET PO ×2 (07:49→20:54)
[2024-06-01] MEDS: Folic Acid 1 MG TABLET PO (07:49)
[2024-06-01] MEDS: Thiamine HCL 100 MG TABLET PO (07:49)
[2024-06-01 07:54] VITALS: BP 121/78; PULSE 103; RESP 20; TEMP 37.1; O2SAT 97
[2024-06-01] MEDS: Nicotine 21 MG PATCH.TD24 TRANSDERMA (07:54)
[2024-06-01] MEDS: 0.9 % Sodium Chloride Flush 3 ML SYRINGE IVFLUSH ×3 (07:55→20:56)
--- NOTE | 2024-06-01 09:11 | P.PNIM_ITS ---
Subjective Subjective Date of Service: 06/01/24 Interval History: less jittery Physical Exam 2 Vital Signs: Vital Signs: Last Vital Signs Temp 98.8 F 06/01/24 07:54 Pulse 103 H 06/01/24 07:54 Resp 20 06/01/24 07:54 BP 121/78 06/01/24 07:54 Pulse Ox 97 06/01/24 07:54 O2 Del Method Room Air 06/01/24 07:54 BMI result Body Mass Index 18.7 General: AO X 3, no acute distress, jaundice Resp: CTA bilateral, no accessory muscles used CVS: S1,S2,RRR GI: soft, non tender, non distended Neuro: motor grossly intact, alert, tremulous Psych: appropriate affect, appropriate insight Objective Data Active Medications Acetaminophen (Acetaminophen 325 Mg Tablet) 650 mg PO Q6H PRN PRN Reason: Pain, Mild (Pain Scale 1-3), fever or headache Last Admin: 05/31/24 22:27 Dose: 650 mg Documented By: RACHELE Benzonatate (Benzonatate 100 Mg Capsule) 100 mg PO TID PRN PRN Reason: Cough Calcium Carbonate (Calcium Carbonate 750 Mg Tab.Chew) 750 mg PO Q4H PRN PRN Reason: Heartburn Clonidine HCl (Clonidine Hcl 0.1 Mg Tablet) 0.1 mg PO BID PRN; Protocol PRN Reason: anxiety/restlessness Enoxaparin Sodium (Enoxaparin Sodium 40 Mg/0.4 Ml Syringe) 40 mg SUBCUT Q24H [facility] Last Admin: 05/31/24 16:03 Dose: 40 mg Documented By: BORIS Famotidine (Famotidine 20 Mg Tablet) 20 mg PO BID [facility] Last Admin: 06/01/24 07:49 Dose: 20 mg Documented By: BORIS Folic Acid (Folic Acid 1 Mg Tablet) 1 mg PO DAILY [facility] Stop: 06/02/24 15:49 Last Admin: 06/01/24 07:49 Dose: 1 mg Documented By: BORIS Magnesium Hydroxide (Milk Of Magnesia 30 Ml Oral.Susp) 30 ml PO DAILY PRN PRN Reason: Constipation Magnesium Oxide (Magnesium Oxide 400 Mg Tablet) 800 mg PO DAILY [facility] Last Admin: 06/01/24 07:49 Dose: 800 mg Documented By: BORIS Multivitamins/Vitamin C (Multivitamin Tablet) 1 tab PO DAILY [facility] Stop: 06/02/24 15:49 Last Admin: 06/01/24 07:49 Dose: 1 tab Documented By: BORIS Nicotine (Nicotine 21 Mg Patch.Td24) 21 mg TRANSDERMA DAILY [facility] Last Admin: 06/01/24 07:54 Dose: 21 mg Documented By: BORIS Ondansetron HCl (Ondansetron Hcl 4 Mg/2 Ml Vial) 4 mg IVPUSH Q8H PRN PRN Reason: Nausea and Vomiting Pharmacy Consult (Consult Rx Etoh Phenob Im/Po) 1 each MISCELLANE ONCE PRN; Protocol PRN Reason: Consult order Phenobarbital (Phenobarbital 15 Mg Tablet) 15 mg PO BID [facility]; Protocol Stop: 06/03/24 09:01 Phenobarbital (Phenobarbital 15 Mg Tablet) 15 mg PO DAILY [facility]; Protocol Stop: 06/05/24 09:01 Sodium Chloride (0.9 % Sodium Chloride Flush 3 Ml Syringe) 3 ml IVFLUSH QSHIFT [facility] Last Admin: 06/01/24 07:55 Dose: 3 ml Documented By: BORIS Thiamine HCl (Thiamine Hcl 100 Mg Tablet) 100 mg PO DAILY [facility] Stop: 06/02/24 15:49 Last Admin: 06/01/24 07:49 Dose: 100 mg Documented By: BORIS Labs 06/01/24 06:10 06/01/24 06:10 Labs: Laboratory Results - last 24 hr 06/01/24 06:10 MCV 103.1 H MCH 36.4 H MCHC 35.3 H RDW 14.8 Plt Count 110 L D MPV 10.5 Absolute Nucleated RBC 0.000 Nucleated RBC % (auto) 0.0 PT 21.2 H INR 1.8 H Anion Gap 12 Estim Creat Clear Calc 85.4 Estimated GFR > 60 Fasting Glucose 97 Calcium 9.5 Magnesium 1.6 Total Bilirubin 4.6 H Direct Bilirubin 3.3 H AST 91 H ALT 18 Alkaline Phosphatase 164 H Total Protein 7.7 Albumin 2.9 L Assessment and Plan (1) Alcohol use disorder: Status: Acute Plan 59F PMH alcohol dependence, osteoporosis presented with mechanical fall complicated by alcohol withdrawal Alcohol dependence with acute withdrawal and acute alcoholic hepatitis Continue phenobarb, monitor LFTs (worsened today) Vitamins coughing with food customs director eval Mechanical fall No trauma, PT recommending home wiht family support Smoking cessation DVT prophylaxis with Lovenox Full Code reason for continued hospitalization: Still with withdrawal, worsening lfts Quality Stroke Does the patient have a stroke diagnosis?: No VTE Prior VTE?: No VTE Risk Level:: Medical - moderate - high VTE Device Contraindication: Treatment Not Indicated VTE Drug Contraindication: N/A - Med Ordered
[2024-06-01 11:53] VITALS: BP 108/74; PULSE 111; RESP 20; TEMP 37.1; O2SAT 96
[2024-06-01] MEDS: Enoxaparin Sodium 40 MG/0.4 ML SYRINGE SUBCUT (15:12)
[2024-06-01 16:00] VITALS: BP 108/94; PULSE 118; RESP 18; TEMP 37.1; O2SAT 94
[2024-06-01 20:00] VITALS: BP 97/56; PULSE 115; RESP 20; TEMP 36.9; O2SAT 93
[2024-06-01 20:45] VITALS: BP 119/73
[2024-06-01] MEDS: PHENobarbitaL 15 MG TABLET PO (20:53)
[2024-06-02] VITALS (7 sets, daily range): BP systolic 100–126; BP diastolic 54–79; PULSE 74–124; RESP 18–110; TEMP 36.5–37.2; O2SAT 93–98; BMI 18.7
[2024-06-02 06:55] LABS: INTERNATIONAL NORM RATIO 1.7 (0.9-1.1); Prothrombin Time 19.4 SEC (10.9-12.4)
[2024-06-02 07:03] LABS: Hematocrit 32.6 % (37.0-47.0); Hemoglobin 11.4 g/dl (12.0-16.0); Mean Corpuscular Hemoglobin 36.7 pg (27.0-33.0); Mean Corpuscular Volume 104.8 fL (80.0-98.0); Mean Platelet Volume 10.3 fL (9.4-12.3); Platelet Count 121 X10*3/uL (160-400); Red Blood Count 3.11 X10*6/uL (4.20-5.50); Red Cell Distribution Width 15.1 % (11.0-16.0); White Blood Count 7.7 X10*3/uL (4.8-10.8)
[2024-06-02 07:07] LABS: Alanine Aminotransferase 21 U/L (0-31); Albumin Level 2.8 g/dL (3.5-5.0); Alkaline Phosphatase 152 U/L (39-117); Anion Gap 13 (12-20); Aspartate Amino Transferase 93 U/L (5-31); Bilirubin Direct 2.8 mg/dL (0.0-0.5); Bilirubin Total 3.8 mg/dL (0.0-1.0); Blood Urea Nitrogen 8 mg/dL (9-16); Calcium 9.2 mg/dL (8.4-10.2); Carbon Dioxide 25 mmol/L (22-29); Chloride 99 mmol/L (96-108); Creatinine Clr Calc Pharmacy 84.1; Estimated Glomerular Filt Rate > 60; Glucose Fasting 139 mg/dL (60-99); Potassium 3.4 mmol/L (3.3-5.1); Sodium 134 mmol/L (135-145); Total Protein 7.5 g/dL (6.5-8.0)
[2024-06-02] MEDS: Nicotine 21 MG PATCH.TD24 TRANSDERMA (09:02)
[2024-06-02] MEDS: PHENobarbitaL 15 MG TABLET PO ×2 (09:02→22:01)
[2024-06-02] MEDS: Thiamine HCL 100 MG TABLET PO (09:02)
[2024-06-02] MEDS: Magnesium Oxide 400 MG TABLET 800 MG PO (09:02)
[2024-06-02] MEDS: Folic Acid 1 MG TABLET PO (09:02)
[2024-06-02] MEDS: Multivitamin TABLET 1 TAB PO (09:02)
[2024-06-02] MEDS: Famotidine 20 MG TABLET PO ×2 (09:02→22:01)
[2024-06-02] MEDS: 0.9 % Sodium Chloride Flush 3 ML SYRINGE IVFLUSH ×3 (09:03→22:01)
--- NOTE | 2024-06-02 09:27 | HO.PM.IMPN ---
Subjective Subjective Date of Service: 06/02/24 Interval History: less jittery Physical Exam Vital Signs: Vital Signs: Last Vital Signs Temp 98.2 F 06/02/24 07:32 Pulse 113 H 06/02/24 07:32 Resp 18 06/02/24 07:32 BP 114/70 06/02/24 07:32 Pulse Ox 96 06/02/24 07:32 O2 Del Method Room Air 06/02/24 07:32 BMI result Body Mass Index 18.7 General: AO X 3, no acute distress, jaundice Resp: CTA bilateral, no accessory muscles used CVS: S1,S2,RRR GI: soft, non tender, non distended Neuro: motor grossly intact, alert, tremulous Psych: appropriate affect, appropriate insight Objective Data Active Medications Acetaminophen (Acetaminophen 325 Mg Tablet) 650 mg PO Q6H PRN PRN Reason: Pain, Mild (Pain Scale 1-3), fever or headache Last Admin: 05/31/24 22:27 Dose: 650 mg Documented By: RACHELE Benzonatate (Benzonatate 100 Mg Capsule) 100 mg PO TID PRN PRN Reason: Cough Calcium Carbonate (Calcium Carbonate 750 Mg Tab.Chew) 750 mg PO Q4H PRN PRN Reason: Heartburn Clonidine HCl (Clonidine Hcl 0.1 Mg Tablet) 0.1 mg PO BID PRN; Protocol PRN Reason: anxiety/restlessness Enoxaparin Sodium (Enoxaparin Sodium 40 Mg/0.4 Ml Syringe) 40 mg SUBCUT Q24H [facility] Last Admin: 06/01/24 15:12 Dose: 40 mg Documented By: BORIS Famotidine (Famotidine 20 Mg Tablet) 20 mg PO BID [facility] Last Admin: 06/02/24 09:02 Dose: 20 mg Documented By: ELIE Folic Acid (Folic Acid 1 Mg Tablet) 1 mg PO DAILY [facility] Stop: 06/02/24 15:49 Last Admin: 06/02/24 09:02 Dose: 1 mg Documented By: ELIE Magnesium Hydroxide (Milk Of Magnesia 30 Ml Oral.Susp) 30 ml PO DAILY PRN PRN Reason: Constipation Magnesium Oxide (Magnesium Oxide 400 Mg Tablet) 800 mg PO DAILY [facility] Last Admin: 06/02/24 09:02 Dose: 800 mg Documented By: ELIE Multivitamins/Vitamin C (Multivitamin Tablet) 1 tab PO DAILY [facility] Stop: 06/02/24 15:49 Last Admin: 06/02/24 09:02 Dose: 1 tab Documented By: ELIE Nicotine (Nicotine 21 Mg Patch.Td24) 21 mg TRANSDERMA DAILY [facility] Last Admin: 06/02/24 09:02 Dose: 21 mg Documented By: ELIE Ondansetron HCl (Ondansetron Hcl 4 Mg/2 Ml Vial) 4 mg IVPUSH Q8H PRN PRN Reason: Nausea and Vomiting Pharmacy Consult (Consult Rx Etoh Phenob Im/Po) 1 each MISCELLANE ONCE PRN; Protocol PRN Reason: Consult order Phenobarbital (Phenobarbital 15 Mg Tablet) 15 mg PO BID [facility]; Protocol Stop: 06/03/24 09:01 Last Admin: 06/02/24 09:02 Dose: 15 mg Documented By: ELIE Phenobarbital (Phenobarbital 15 Mg Tablet) 15 mg PO DAILY [facility]; Protocol Stop: 06/05/24 09:01 Sodium Chloride (0.9 % Sodium Chloride Flush 3 Ml Syringe) 3 ml IVFLUSH QSHIFT [facility] Last Admin: 06/02/24 09:03 Dose: 3 ml Documented By: ELIE Thiamine HCl (Thiamine Hcl 100 Mg Tablet) 100 mg PO DAILY [facility] Stop: 06/02/24 15:49 Last Admin: 06/02/24 09:02 Dose: 100 mg Documented By: ELIE Labs 06/02/24 06:01 06/02/24 06:01 Labs: Laboratory Results - last 24 hr 06/02/24 06:01 MCV 104.8 H MCH 36.7 H MCHC 35.0 RDW 15.1 Plt Count 121 L MPV 10.3 Absolute Nucleated RBC 0.000 Nucleated RBC % (auto) 0.0 PT 19.4 H INR 1.7 H Anion Gap 13 Estim Creat Clear Calc 84.1 Estimated GFR > 60 Fasting Glucose 139 H Calcium 9.2 Total Bilirubin 3.8 H Direct Bilirubin 2.8 H AST 93 H ALT 21 Alkaline Phosphatase 152 H Total Protein 7.5 Albumin 2.8 L Assessment and Plan (1) Alcohol use disorder: Status: Acute Plan 59F PMH alcohol dependence, osteoporosis presented with mechanical fall complicated by alcohol withdrawal Alcohol dependence with acute withdrawal and acute alcoholic hepatitis Continue phenobarb, monitor LFTs (slightly improved today) Vitamins 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
--- NOTE | 2024-06-02 09:47 | MHC.SLORD ---
Speech Language Pathology Order Status: Pt seen after breakfast, pt lying in comfortably in bed. Pt noted she coughed on peaches (a mixed consistency) but had no other difficulty. Pt to be seen for full evaluation this afternoon as she did not want to eat anything after breakfast this morning. Pt has no PMH of dysphagia.
--- NOTE | 2024-06-02 11:23 | MHC.CLN ---
RE; CONSULT PT IS MODERATELY MALNOURISHED PT WITH MILDLY DEPLETED SUBCUTANEOUS FAT AND MUSCLE MASS WITH 7% NONSIGNIFICANT WT LOSS X 6 MONTHS WITH CHRONIC POOR PO INTAKE R/T ETOH ABUSE REGULAR DIET RECOMMEND ADDING ENSURE BID TO INCREASE KCALS SUPP TO PROVIDE 700KCALS, 40G PROTEIN MONITOR PO INTAKE AND ENCOURAGE SUPPLEMENT SEE ALSO FULL CLINICAL NUTRITION ASSESSMENT
--- NOTE | 2024-06-02 12:39 | MHC.CM.PN ---
EMR REVIEWED, PER HOSPITALIST ANTIC PT WILL REMAIN INPT X ONE MORE DAY, PT REQUESTING A SCRIPT FOR A WALKER, CM WILL CONT TO FOLLOW DC NEEDS.
--- NOTE | 2024-06-02 14:32 | MHC.SL.SWA ---
Speech Pathologist Impression: Adequate oropharyngeal coordination of swallow mechanism; coughing on mixed consistencies considered WNL in presence of weakness or reduced attention to task Risk of Aspiration Due to: Poor PO Intake Dysphasia Diet Status: Liquid Consistency and Strategies for Safe Swallow: Liquid Intake Recommendation: Thin Liquid Intake Strategies: Small Sips Solid Food Consistency: Dietary Recommendations: Regular Additional Modifications to Solid Foods: Oral Medication Intake: Whole with Liquid Please contact the pharmacy regarding appropriate crushable or liquid drug formulations that are available whenever modified delivery is recommended. Compensatory Strategies and Precautions to be Taken for Safe Swallow: Supervision While Eating and Drinking for Safe Swallow: None Needed Foods to Avoid: Education was provided to pt about mixed consistencies that she may avoid d/t variation of items within a single bite Swallowing Recommended Treatments: Compens. Strategy Educat. Recommendation for Speech: Pt presents with adequate oropharyngeal coordination of swallow mechanism. Pt has no hx of dysphagia. Difficulty with mixed consistencies considered result of pt weakness and reduced attention. HAND EMBROIDERER to followup x1, recc regular diet with thin liquids. Comment: Requested RD consult d/t pt c/o not eating well at home. Frequency/Duration: Date Range for Service Req: Timeline to reassess: Priest Clinican/Clinical Fellow: No Supervisory Statement: I have reviewed and agree with the student/clinical fellow's documentation: N/A Speech Language Pathologist: Nazia Patterson M.S., CCC-HAND EMBROIDERER
--- NOTE | 2024-06-02 15:12 | P.PNADD_ITS ---
Subjective Subjective Date of Service: 06/02/24 Reason For Visit: Alcohol withdrawal, fall at home Interim History: Patient seen in follow up for alcohol use disorder Seen in room 460, patient awake, alert, engaged in interview. Constricted affect--although tearful when discussing issues at home She denies any withdrawal sx, and states she has no thoughts of alcohol since being here Reviewed history -reports she has been drinking for many, many years . -currently drinking 1/2 gallon vodka every 2 days -currently hospitalization is the longest she has gone without drinking in many years -denies any history of treatment Reports that he current living situation is stressful to her and identified a strained relationship with her daughter She reports that she does not leave her home very much and her daughter erased her contacts from her phone. She states she feels safe at home Somewhat indifferent when discussing alcohol use and motivation for change. Depressive sx most prominent--sadness, decreased self worth, isolation, etc Review of Systems Constitutional: Reports as per HPI Mental Status Exam Mental Status Exam Patient Appearance: Well Grooomed Level of Consciousness: Awake, Appropriate and Alert Patient Behavior: Appropriate Mood Description: Blunted Affect Description: Blunted Speech Pattern: Clear Diagnostics Vital Signs (24Hr): Vital Signs - 24 hr 06/01/24 16:00 06/01/24 20:00 06/01/24 20:45 Temperature 98.8 F 98.5 F Pulse Rate 118 H 115 H Respiratory Rate 18 20 Blood Pressure 108/94 H 97/56 L 119/73 Pulse Oximetry 94 93 Oxygen Delivery Method Room Air Room Air 06/02/24 00:00 06/02/24 04:00 06/02/24 07:32 Temperature 98.6 F 97.7 F 98.2 F Pulse Rate 120 H 107 H 113 H Respiratory Rate 18 20 18 Blood Pressure 126/79 113/75 114/70 Pulse Oximetry 95 95 96 Oxygen Delivery Method Room Air Room Air Room Air 06/02/24 11:02 Temperature 98.9 F Pulse Rate 112 H Respiratory Rate 18 Blood Pressure 104/59 L Pulse Oximetry 97 Oxygen Delivery Method Room Air BMI result Body Mass Index 18.7 Labs 06/02/24 06:01 06/02/24 06:01 Labs: Laboratory Results - last 48 hr 06/01/24 06/02/24 06:10 06:01 WBC 7.4 7.7 RBC 3.19 L 3.11 L Hgb 11.6 L 11.4 L Hct 32.9 L 32.6 L MCV 103.1 H 104.8 H MCH 36.4 H 36.7 H MCHC 35.3 H 35.0 RDW 14.8 15.1 Plt Count 110 L D 121 L MPV 10.5 10.3 Absolute Nucleated RBC 0.000 0.000 Nucleated RBC % (auto) 0.0 0.0 PT 21.2 H 19.4 H INR 1.8 H 1.7 H Sodium 136 134 L Potassium 3.7 3.4 Chloride 99 99 Carbon Dioxide 29 25 Anion Gap 12 13 BUN 8 L 8 L Creatinine 0.61 0.62 Estim Creat Clear Calc 85.4 84.1 Estimated GFR > 60 > 60 Fasting Glucose 97 139 H Calcium 9.5 9.2 Magnesium 1.6 Total Bilirubin 4.6 H 3.8 H Direct Bilirubin 3.3 H 2.8 H AST 91 H 93 H ALT 18 21 Alkaline Phosphatase 164 H 152 H Total Protein 7.7 7.5 Albumin 2.9 L 2.8 L Imaging Radiology Impressions: ITS Impressions Head CT 05/29/24 20:[address]: [address] evidence of acute intracranial hemorrhage or edematous territorial infarction. 2. No CT evidence of acute cervical spine fracture or malalignment. Electronically signed by: Chang Mejia MD 05/29/2024 10:13 PM EST RP Cervical Spine CT 05/29/24 21:01 IM[address]: 1[address] No CT evidence of acute intracranial hemorrhage or edematous territorial infarction. 2. No CT evidence of acute cervical spine fracture or malalignment. Electronically signed by: Chang Mejia MD 05/29/2024 10:13 PM EST RP Abdomen Ultrasound 05/29/24 21:22 IMPRESSION: 1. Very limited exam. 2. Markedly echogenic liver consistent with hepatic steatosis. 3. Benign hepatic cyst. 4. No gallstones were seen, however Hudson's sign is positive. Electronically signed by: Magnus Anne MD 05/29/2024 10:46 PM EST RP Medications Medications Current Medications Acetaminophen (Acetaminophen 325 Mg Tablet) 650 mg PO Q6H PRN PRN Reason: Pain, Mild (Pain Scale 1-3), fever or headache Last Admin: 05/31/24 22:27 Dose: 650 mg Benzonatate (Benzonatate 100 Mg Capsule) 100 mg PO TID PRN PRN Reason: Cough Calcium Carbonate (Calcium Carbonate 750 Mg Tab.Chew) 750 mg PO Q4H PRN PRN Reason: Heartburn Clonidine HCl (Clonidine Hcl 0.1 Mg Tablet) 0.1 mg PO BID PRN; Protocol PRN Reason: anxiety/restlessness Enoxaparin Sodium (Enoxaparin Sodium 40 Mg/0.4 Ml Syringe) 40 mg SUBCUT Q24H [facility] Last Admin: 06/01/24 15:12 Dose: 40 mg Famotidine (Famotidine 20 Mg Tablet) 20 mg PO BID [facility] Last Admin: 06/02/24 09:02 Dose: 20 mg Folic Acid (Folic Acid 1 Mg Tablet) 1 mg PO DAILY [facility] Stop: 06/02/24 15:49 Last Admin: 06/02/24 09:02 Dose: 1 mg Magnesium Hydroxide (Milk Of Magnesia 30 Ml Oral.Susp) 30 ml PO DAILY PRN PRN Reason: Constipation Magnesium Oxide (Magnesium Oxide 400 Mg Tablet) 800 mg PO DAILY [facility] Last Admin: 06/02/24 09:02 Dose: 800 mg Multivitamins/Vitamin C (Multivitamin Tablet) 1 tab PO DAILY [facility] Stop: 06/02/24 15:49 Last Admin: 06/02/24 09:02 Dose: 1 tab Nicotine (Nicotine 21 Mg Patch.Td24) 21 mg TRANSDERMA DAILY [facility] Last Admin: 06/02/24 09:02 Dose: 21 mg Ondansetron HCl (Ondansetron Hcl 4 Mg/2 Ml Vial) 4 mg IVPUSH Q8H PRN PRN Reason: Nausea and Vomiting Pharmacy Consult (Consult Rx Etoh Phenob Im/Po) 1 each MISCELLANE ONCE PRN; Protocol PRN Reason: Consult order Phenobarbital (Phenobarbital 15 Mg Tablet) 15 mg PO BID [facility]; Protocol Stop: 06/03/24 09:01 Last Admin: 06/02/24 09:02 Dose: 15 mg Phenobarbital (Phenobarbital 15 Mg Tablet) 15 mg PO DAILY [facility]; Protocol Stop: 06/05/24 09:01 Sodium Chloride (0.9 % Sodium Chloride Flush 3 Ml Syringe) 3 ml IVFLUSH QSHIFT [facility] Last Admin: 06/02/24 09:03 Dose: 3 ml Thiamine HCl (Thiamine Hcl 100 Mg Tablet) 100 mg PO DAILY [facility] Stop: 06/02/24 15:49 Last Admin: 06/02/24 09:02 Dose: 100 mg Allergies Allergies Allergy/AdvReac Type Severity Reaction Status Date / Time No Known Allergies Allergy Verified 05/29/24 19:52 Assessment & Plan Assessment & Plan (1) Alcohol use disorder: Status: Acute Assessment and Plan: * consider new antidepressant--was prescribed Duloxetine --given LFTS, would consider another agent * batter depositor to check in prior to discharge to assess interest in resources for AUD Total time managing care of this patient today __30__ minutes.
[2024-06-02] MEDS: Enoxaparin Sodium 40 MG/0.4 ML SYRINGE SUBCUT (17:09)
[2024-06-03] VITALS (7 sets, daily range): BP systolic 98–128; BP diastolic 58–65; PULSE 89–123; RESP 18–20; TEMP 36.3–37; O2SAT 92–96
[2024-06-03] MEDS: cloNIDine HCL 0.1 MG TABLET PO (02:54)
[2024-06-03 06:37] LABS: Hematocrit 30.9 % (37.0-47.0); Hemoglobin 10.6 g/dl (12.0-16.0); Mean Corpuscular HGB Conc 34.3 g/dl (31.0-35.0); Mean Corpuscular Hemoglobin 36.1 pg (27.0-33.0); Mean Corpuscular Volume 105.1 fL (80.0-98.0); Mean Platelet Volume 10.4 fL (9.4-12.3); Platelet Count 134 X10*3/uL (160-400); Red Blood Count 2.94 X10*6/uL (4.20-5.50); Red Cell Distribution Width 15.4 % (11.0-16.0); White Blood Count 8.5 X10*3/uL (4.8-10.8)
[2024-06-03 07:00] LABS: INTERNATIONAL NORM RATIO 1.7 (0.9-1.1); Prothrombin Time 19.6 SEC (10.9-12.4)
[2024-06-03 07:09] LABS: Alanine Aminotransferase 17 U/L (0-31); Albumin Level 2.5 g/dL (3.5-5.0); Alkaline Phosphatase 136 U/L (39-117); Anion Gap 11 (12-20); Aspartate Amino Transferase 91 U/L (5-31); Bilirubin Direct 2.8 mg/dL (0.0-0.5); Bilirubin Total 3.9 mg/dL (0.0-1.0); Blood Urea Nitrogen 7 mg/dL (9-16); Carbon Dioxide 23 mmol/L (22-29); Chloride 100 mmol/L (96-108); Creatinine Clr Calc Pharmacy 86.9; Estimated Glomerular Filt Rate > 60; Glucose Fasting 111 mg/dL (60-99); Potassium 4.2 mmol/L (3.3-5.1); Sodium 130 mmol/L (135-145); Total Protein 6.9 g/dL (6.5-8.0)
--- NOTE | 2024-06-03 09:40 | HO.PM.IMPN ---
Subjective Subjective Date of Service: 06/03/24 Interval History: some improvement, still jittery and weak Physical Exam Vital Signs: Vital Signs: Last Vital Signs Temp 97.3 F 06/03/24 07:04 Pulse 89 06/03/24 07:04 Resp 18 06/03/24 07:04 BP 98/65 06/03/24 07:04 Pulse Ox 93 06/03/24 07:04 O2 Del Method Room Air 06/03/24 07:04 BMI result Body Mass Index 18.7 General: AO X 3, no acute distress, jaundice Resp: CTA bilateral, no accessory muscles used CVS: S1,S2,RRR GI: soft, non tender, non distended Neuro: motor grossly intact, alert, tremulous Psych: appropriate affect, appropriate insight Objective Data Active Medications Acetaminophen (Acetaminophen 325 Mg Tablet) 650 mg PO Q6H PRN PRN Reason: Pain, Mild (Pain Scale 1-3), fever or headache Last Admin: 05/31/24 22:27 Dose: 650 mg Documented By: RACHELE Benzonatate (Benzonatate 100 Mg Capsule) 100 mg PO TID PRN PRN Reason: Cough Calcium Carbonate (Calcium Carbonate 750 Mg Tab.Chew) 750 mg PO Q4H PRN PRN Reason: Heartburn Clonidine HCl (Clonidine Hcl 0.1 Mg Tablet) 0.1 mg PO BID PRN; Protocol PRN Reason: anxiety/restlessness Last Admin: 06/03/24 02:54 Dose: 0.1 mg Documented By: CHRISTIANO Enoxaparin Sodium (Enoxaparin Sodium 40 Mg/0.4 Ml Syringe) 40 mg SUBCUT Q24H [facility] Last Admin: 06/02/24 17:09 Dose: 40 mg Documented By: ELIE Famotidine (Famotidine 20 Mg Tablet) 20 mg PO BID [facility] Last Admin: 06/02/24 22:01 Dose: 20 mg Documented By: CHRISTIANO Magnesium Hydroxide (Milk Of Magnesia 30 Ml Oral.Susp) 30 ml PO DAILY PRN PRN Reason: Constipation Magnesium Oxide (Magnesium Oxide 400 Mg Tablet) 800 mg PO DAILY [facility] Last Admin: 06/02/24 09:02 Dose: 800 mg Documented By: ELIE Nicotine (Nicotine 21 Mg Patch.Td24) 21 mg TRANSDERMA DAILY [facility] Last Admin: 06/02/24 09:02 Dose: 21 mg Documented By: ELIE Ondansetron HCl (Ondansetron Hcl 4 Mg/2 Ml Vial) 4 mg IVPUSH Q8H PRN PRN Reason: Nausea and Vomiting Pharmacy Consult (Consult Rx Etoh Phenob Im/Po) 1 each MISCELLANE ONCE PRN; Protocol PRN Reason: Consult order Phenobarbital (Phenobarbital 15 Mg Tablet) 15 mg PO DAILY [facility]; Protocol Stop: 06/05/24 09:01 Sodium Chloride (0.9 % Sodium Chloride Flush 3 Ml Syringe) 3 ml IVFLUSH QSHIFT [facility] Last Admin: 06/02/24 22:01 Dose: 3 ml Documented By: CHRISTIANO Labs 06/03/24 05:59 06/03/24 05:59 Labs: Laboratory Results - last 24 hr 06/03/24 05:59 MCV 105.1 H MCH 36.1 H MCHC 34.3 RDW 15.4 Plt Count 134 L MPV 10.4 Absolute Nucleated RBC 0.000 Nucleated RBC % (auto) 0.0 PT 19.6 H INR 1.7 H Anion Gap 11 L Estim Creat Clear Calc 86.9 Estimated GFR > 60 Fasting Glucose 111 H Calcium 9.0 Total Bilirubin 3.9 H Direct Bilirubin 2.8 H AST 91 H ALT 17 Alkaline Phosphatase 136 H Total Protein 6.9 Albumin 2.5 L Assessment and Plan (1) Alcohol use disorder: Status: Acute Plan 59F PMH alcohol dependence, osteoporosis presented with mechanical fall complicated by alcohol withdrawal Alcohol dependence with acute withdrawal and acute alcoholic hepatitis Continue phenobarb, monitor LFTs (appears to have plateaued) Vitamins 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
--- NOTE | 2024-06-03 09:57 | MHC.RECOVRN ---
AUDIT-C Brief Intervention Pt had positive screen for unhealthy alcohol use on admission, subsequently met with t/w to discuss alcohol use and recovery supports/options. This short story writer met with patient to discuss current alcohol use and concerns related to increased risk of alcohol related problems.? Pt reports 1/2 gallon vodka every 2 days x approx 30 years. Denies any periods of recovery. Discussed how alcohol use has impacted health, including negative impact on overall physical wellbeing. Withdrawal History:denies hx withdrawal seizures Treatment History: denies Supports:? and daughter, however, continues to state they aren't very supportive, they just want me put away Discussed risk reduction strategies including drinking below the recommended limit. Pts goal is abstinence. Provided pt with written resources including information on inpatient and outpatient treatment, STEVEN, harm reduction, and recovery coaching. Pt plans to initiate naltrexone and follow up with the CCC. Pt provided with t/w contact information if questions or concerns arise. Denies other questions or concerns at this time.?
--- NOTE | 2024-06-03 10:03 | MHC.RECOVRN ---
Addendum entered by Tamika Enamorado 06/03/24 13:13: Pts [facility] appt canceled, pt to follow up with [facility] on 06/12/24 at 10:00AM. Original Note: Pt has [facility] appointment on 06/18/24 at 3PM. CM aware.
[2024-06-03] MEDS: Famotidine 20 MG TABLET PO (10:24)
[2024-06-03] MEDS: Magnesium Oxide 400 MG TABLET 800 MG PO (10:24)
[2024-06-03] MEDS: PHENobarbitaL 15 MG TABLET PO (10:25)
[2024-06-03] MEDS: Nicotine 21 MG PATCH.TD24 TRANSDERMA (10:25)
[2024-06-03] MEDS: 0.9 % Sodium Chloride Flush 3 ML SYRINGE IVFLUSH ×2 (10:30→16:33)
--- NOTE | 2024-06-03 14:34 | MHC.CM.PN ---
EMR REVIEWED, CM MET W/PT TO DISCUSS DISPO, PT ACCEPTING BED OFFER AT [facility], UPDATES SENT AND [facility] HAS SUBMITTED FOR AUTH, PT WILL NEED A LESS THAN 30DAY ON DC SUMMARY, CM WILL CONT TO FOLLOW DC NEEDS.
[2024-06-03] MEDS: Enoxaparin Sodium 40 MG/0.4 ML SYRINGE SUBCUT (16:31)
[2024-06-03] MEDS: Acetaminophen 325 MG TABLET 650 MG PO (18:17)
[2024-06-04] MEDS: 0.9 % Sodium Chloride Flush 3 ML SYRINGE IVFLUSH ×2 (01:20→08:16)
[2024-06-04 03:27] VITALS: BP 97/60; PULSE 97; RESP 18; TEMP 36.2; O2SAT 93
[2024-06-04 07:59] VITALS: BP 103/58
[2024-06-04 08:00] VITALS: BP 90/57; PULSE 107; RESP 17; TEMP 36.6; O2SAT 96
[2024-06-04 08:02] LABS: Hematocrit 33.9 % (37.0-47.0); Hemoglobin 11.5 g/dl (12.0-16.0); Mean Corpuscular HGB Conc 33.9 g/dl (31.0-35.0); Mean Corpuscular Hemoglobin 35.9 pg (27.0-33.0); Mean Corpuscular Volume 105.9 fL (80.0-98.0); Mean Platelet Volume 10.5 fL (9.4-12.3); Platelet Count 153 X10*3/uL (160-400); Red Cell Distribution Width 15.9 % (11.0-16.0); White Blood Count 8.3 X10*3/uL (4.8-10.8)
[2024-06-04] MEDS: PHENobarbitaL 15 MG TABLET PO (08:06)
[2024-06-04] MEDS: Magnesium Oxide 400 MG TABLET 800 MG PO (08:06)
[2024-06-04] MEDS: Famotidine 20 MG TABLET PO (08:06)
[2024-06-04] MEDS: Nicotine 21 MG PATCH.TD24 TRANSDERMA (08:07)
[2024-06-04 08:21] LABS: Alanine Aminotransferase 22 U/L (0-31); Albumin Level 2.8 g/dL (3.5-5.0); Alkaline Phosphatase 141 U/L (39-117); Anion Gap 11 (12-20); Aspartate Amino Transferase 83 U/L (5-31); Bilirubin Direct 2.7 mg/dL (0.0-0.5); Bilirubin Total 3.7 mg/dL (0.0-1.0); Blood Urea Nitrogen 10 mg/dL (9-16); Calcium 9.4 mg/dL (8.4-10.2); Carbon Dioxide 25 mmol/L (22-29); Chloride 102 mmol/L (96-108); Creatinine Clr Calc Pharmacy 88.3; Estimated Glomerular Filt Rate > 60; Glucose Fasting 109 mg/dL (60-99); Potassium 4.3 mmol/L (3.3-5.1); Sodium 134 mmol/L (135-145); Total Protein 7.7 g/dL (6.5-8.0)
--- NOTE | 2024-06-04 09:32 | MHC.CLN ---
F/U PT IS MODERATELY MALNOURISHED PT WITH MILDLY DEPLETED SUBCUTANEOUS FAT AND MUSCLE MASS WITH 7% NONSIGNIFICANT WT LOSS X 6 MONTHS WITH CHRONIC POOR PO INTAKE R/T ETOH ABUSE PO INTAKE GOOD REGULAR DIET CURRENT PRDER FOR ENSURE CLEAR SUPPLEMENT RECOMMEND RE-STARTING ENSURE BID TO INCREASE KCALS SUPP TO PROVIDE 700KCALS, 40G PROTEIN MONITOR PO INTAKE AND ENCOURAGE SUPPLEMENT
[2024-06-04] MEDS: Midodrine HCl 2.5 MG TABLET PO (09:53)
--- NOTE | 2024-06-04 10:46 | MHC.CM.PN ---
PT MEDICALLY CLEARED FOR DC TO STR AT [facility] FOR BLS TRANSPORT
[2024-06-04 11:04] VITALS: BP 113/68; PULSE 115; RESP 20; TEMP 37; O2SAT 96
--- NOTE | 2024-06-04 11:54 | PM.DS ---
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 recovery, we are monitoring for progression of ETOH wd 05/30/24 15:46 Addiction Medicine Routine Consulting Provider: Addiction Covering Reason for consultation: Alcohol use disorder, here for withdrawal DS: Diagnosis Discharge Diagnosis (1) Alcohol use disorder: Status: Acute (2) Alcohol withdrawal: Status: Acute (3) Acute hyponatremia: Status: Acute DS: Summary Hospital Course Hospital Course: Admission note HPI Pt is a 59-year-old female with a PMH significant for?severe osteoporosis with known lumbar compound fractures, anxiety, and alcohol use disorder who presents to the ED after mechanical fall at home. Patient reports she tripped over her pants as she was putting them on and struck her head and left shoulder and elbow on a cement floor. No loss of consciousness, lightheadedness, or dizziness, though did have a headache. Denies acute vision changes. Apparently patient refused to get up off of the floor or allow family members to help her up so EMS was called. While in the ED patient experienced nausea, vomiting, palpations, and increased anxiety, and was started on phenobarb protocol by ED providers. Patient reports she buys half liters of vodka and drinks about 3/4 of one daily. Currently patient is resting comfortably in bed though continues to experience some nausea. No abdominal pain. Denies left shoulder or elbow pain. Chronic lower back pain at baseline. Currently patient reports no tremors, audio or visual hallucinations, or increased anxiety. In the ED pt was tachycardic up to 127, tachypneic up to 25, and with variable BP mostly normotensive. Labs were grossly unremarkable and around baseline for patient. No leukocytosis. Stable H&H. No significant electrolyte abnormalities. Renal function WNL. Hepatic function showing transaminitis with bilirubin 3.6, AST 156, and alk-phos 204, around baseline. UA negative for UTI. Alcohol level at time of admission 123. CTA of head negative for acute intracranial hemorrhage or edematous territorial infarction. CT of cervical spine negative for acute fracture or malalignment. Abdominal ultrasound limited, but showed markedly echogenic liver consistent with hepatic steatosis with benign hepatic cyst. No gallstones were seen, however showed positive Hudson's sign. EKG demonstrated sinus tachycardia with nonspecific ST abnormalityc and QT of 492. Pt was treated with IVF, Mag sulfate, ibuprofen, and started on phenobarb protocol. Pt will be admitted to the hospital for treatment and further evaluation of acute alcohol withdrawal. Hospital course Treated for Alcohol dependence with acute withdrawal and acute alcoholic hepatitis. Started on phenobarb protocol with good tolerance. LFTs improved and appears to have plateaued. started on supplements and recommended compelete abstinence from alcohol as she was seen by addiction team. low blood pressure, likely related to prolonged alcoholism. started on Midodrine 2.5 mg tid for now which can be weaned down as her physical activity and body tone improves. coughing with food, Evaluated by MOLDED GOODS INSPECTOR TRIMMER team who recommended to continue regular solids and thin liquids Mechanical fall, No trauma or injuries, PT recommended STR Smoking, recommended cessation and started on nicotine replacement therapy. Acute hyponatremia related to alcoholism, improved while inpatient. The patient will likely need less than 30 days of SNF stay. Discharge plan We advise you complete abstinence from Alcohol Take magnesium supplement Take multivitamin supplement Work with physical therapy as tolerated Time Attestation Discharge Coordination Time (in mins): 43 Quality: Safe Use of Opioids Does Pt have an Active Cancer Diagnosis on the Problem List?: No Quality: Stroke Does the patient have a stroke diagnosis?: No Physical Exam Vital Signs: Vital Signs: Last Vital Signs Temp 98.6 F 06/04/24 11:04 Pulse 115 H 06/04/24 11:04 Resp 20 06/04/24 11:04 BP 113/68 06/04/24 11:04 Pulse Ox 96 06/04/24 11:04 O2 Del Method Room Air 06/04/24 11:04 BMI result Body Mass Index 18.7 Const: Other: Constitutional : Awake, interactive, not in distress Neck : Normal inspection, Supple Cardiovascular : RRR, no JVP, no lower extremity edema Respiratory : good bilateral air entry, no crackles, wheezes or rhonchi Gastrointestinal: soft, lax, Normal bowel sounds, Non tender Skin : Warm, Dry Neurological : Alert & oriented x3, No focal deficit DS: Data Data Completed and Pending Completed studies during hospitalization [Text1]: Procedures Insertion of Infusion Device into Superior Vena Cava, Percutaneous Approach (11/23/23) Ultrasonography of Superior Vena Cava, Guidance (11/23/23) Labs on day of discharge: Laboratory Results - last 24 hr 06/04/24 07:07 WBC 8.3 RBC 3.20 L Hgb 11.5 L Hct 33.9 L MCV 105.9 H MCH 35.9 H MCHC 33.9 RDW 15.9 Plt Count 153 L MPV 10.5 Absolute Nucleated RBC 0.000 Nucleated RBC % (auto) 0.0 Sodium 134 L Potassium 4.3 Chloride 102 Carbon Dioxide 25 Anion Gap 11 L BUN 10 Creatinine 0.59 Estim Creat Clear Calc 88.3 Estimated GFR > 60 Fasting Glucose 109 H Calcium 9.4 Total Bilirubin 3.7 H Direct Bilirubin 2.7 H AST 83 H ALT 22 Alkaline Phosphatase 141 H Total Protein 7.7 Albumin 2.8 L Imaging Chest x-ray: Radiologist's impression: ITS Impressions Head CT 05/29/24 20:[address]: [address] evidence of acute intracranial hemorrhage or edematous territorial infarction. 2. No CT evidence of acute cervical spine fracture or malalignment. Electronically signed by: Chang Mejia MD 05/29/2024 10:13 PM EST RP Cervical Spine CT 05/29/24 21:01 IMPRESSION: 1. No CT evidence of acute intracranial hemorrhage or edematous territorial infarction. 2. No CT evidence of acute cervical spine fracture or malalignment. Electronically signed by: Chang Mejia MD 05/29/2024 10:13 PM EST RP Abdomen Ultrasound 05/29/24 21:22 IMPRESSION: 1. Very limited exam. 2. Markedly echogenic liver consistent with hepatic steatosis. 3. Benign hepatic cyst. 4. No gallstones were seen, however Hudson's sign is positive. Electronically signed by: Magnus Anne MD 05/29/2024 10:46 PM EST RP Discharge Plan Discharge Anticipated Discharge Date/Time: 06/04/24 11:51 Patient Disposition: Xfer SNF Discharge Diagnosis: Alcohol withdrawal Referrals: [facility] [Outside] - 1 Day (SHORT TERM REHAB) Anupama Lane MD [Primary Care Provider] - 1 Week Discharge Medications: New famotidine 20 mg Tablet 20 mg PO DAILY Qty: 90 0RF magnesium oxide 400 mg (241.3 mg magnesium) Tablet 800 mg PO DAILY Qty: 60 0RF midodrine 2.5 mg Tablet 2.5 mg PO TID Qty: 90 0RF multivitamin Tablet 1 tab PO DAILY Qty: 90 0RF Continued (DME) back brace Misc See Rx Instructions .Route Qty: 1 0RF Rx Instructions: As directed cholecalciferol (vitamin D3) 1,250 mcg (50,000 unit) capsule 1,250 mcg PO QWEEK 90 Days Qty: 13 0RF calcium carbonate-vitamin D3 1,000 mg-20 mcg (800 unit) tablet 1 tab PO BID Qty: 180 0RF Rx Instructions: This is in addition to to the vitamin-D 41110 units weekly naltrexone 50 mg tablet 50 mg PO DAILY Qty: 30 1RF duloxetine [Cymbalta] 20 mg capsule,delayed release(DR/EC) 20 mg PO DAILY Qty: 30 1RF Discharge Orders: Discharge Order (Routine); Ordered 06/04/24 Ordered By: Lc Suarez Diet: Advance to usual diet Activity on Discharge: As tolerated Stand Alone Forms: Patient Portal Discharge page Print Language: Welsh Care Plan Goals: We advise you complete abstinence from Alcohol Take magnesium supplement Take multivitamin supplement Work with physical therapy as tolerated Health Concerns: Alcoholism Plan of Treatment: Supplement physical therapy Assessment: as above
[2024-06-04] MEDS: cloNIDine HCL 0.1 MG TABLET PO (13:19)
== END 2024-06-04 15:06 | disposition skilled nursing facility (03) | DRG 897 ==
LOC: HO.ED 05-30 15:01 → HO.EDOVER 05-30 15:13 → HO.IMC 05-30 15:33
PROVIDERS: Internal Medicine; Physician Assistant Medical; Admitting Provider Student in an Organized Health Care Education/Training Program; Emergency Provider Internal Medicine; PCP Internal Medicine; Visit Provider Student in an Organized Health Care Education/Training Program
DX: F10.239 Alcohol dependence with withdrawal, unspecified (principal); E87.1 Hypo-osmolality and hyponatremia; E78.2 Mixed hyperlipidemia; F17.210 Nicotine dependence, cigarettes, uncomplicated; Z71.6 Tobacco abuse counseling; Y90.6 Blood alcohol level of 120-199 mg/100 ml; W19.XXXA Unspecified fall, initial encounter; K70.10 Alcoholic hepatitis without ascites; Z79.899 Other long term (current) drug therapy
CPT/HCPCS: 36415; 70450; 72125; 76705; 80048; 80053; 80076; 80307; 81001; 82248; 82550; 83735; 85025; 85027; 85610; 92526; 92610; 93005; 97112; 97116; 97163; 99285; J1650; J2560; J3475

== ENCOUNTER → 2024-05-29 20:09 | Outpatient (BNV) | payer OTHER, SELFPAY | PROVIDERS: Emergency Provider Internal Medicine; PCP Internal Medicine; Visit Provider Internal Medicine Cardiovascular Disease | DX: R42 Dizziness and giddiness (principal); R00.0 Tachycardia, unspecified; R94.31 Abnormal electrocardiogram [ECG] [EKG] | CPT/HCPCS: 93010 ==

== ENCOUNTER → 2024-05-30 15:12 | Outpatient (BNV) | payer OTHER, SELFPAY | PROVIDERS: Admitting Provider Student in an Organized Health Care Education/Training Program; Emergency Provider Internal Medicine; PCP Internal Medicine; Visit Provider Nurse Practitioner Psychiatric/Mental Health | DX: F10.90 Alcohol use, unspecified, uncomplicated (principal) | CPT/HCPCS: 99221; 99232 ==

== ENCOUNTER → 2024-05-30 15:12 | Outpatient (BNV) | payer OTHER, SELFPAY | PROVIDERS: Admitting Provider Student in an Organized Health Care Education/Training Program; Emergency Provider Internal Medicine; PCP Internal Medicine; Visit Provider Student in an Organized Health Care Education/Training Program | DX: F10.930 Alcohol use, unspecified with withdrawal, uncomplicated (principal); F10.931 Alcohol use, unspecified with withdrawal delirium; E87.1 Hypo-osmolality and hyponatremia; K70.10 Alcoholic hepatitis without ascites | CPT/HCPCS: 99222; 99232; 99233; 99239 ==

== ENCOUNTER → 2024-06-13 10:09 | Outpatient (REF) | payer OTHER, SELFPAY ==
--- NOTE | ~2024-06-13 | NM_ITS ---
EXAMINATION: NM BONE SCAN OF THE WHOLE BODY CLINICAL INFORMATION: Reason for Exam - Encounter for screening for malignant neoplasm, site unspecified Pertinent additional information obtained via technologist's notes from patient's questionnaire; status post fall 2 weeks ago, pain in the mid back, Kyphoplasty latest in February 2023, multiple fractures in the back. COMPARISON: No prior bone scan. CORRELATION: CT cervical spine dated May 29, 2024. MRI and CT lumbar spine dated November 23, 2023. TECHNIQUE: Multiple gamma scintillation camera images of the whole body were performed 2.25 hours following the intravenous administration of 20 mCi Tc-99m MDP. FINDINGS: In the head, no abnormal uptake. In the thoracic cage and upper extremities, focal moderate intense uptake along left seventh rib anteriorly and right ninth rib posteriorly near the costovertebral junction/T9 right transverse process. Additional mild focal uptake anteriorly at the approximate left 10th rib anterolaterally (on KOURTNEY projection only) and approximate left 11th rib (on posterior projection whole body). Minimal heterogeneity with prominent uptake at sternomanubrial and xiphistrenal junctions. In the spine, transverse linear moderate intense uptake at the junction of T10/T11 vertebrae. Relatively prominent uptake along the lateral aspects of T12-L5 vertebrae. In the pelvis, nonspecific heterogeneous uptake within the sacrum. Heterogeneity within the degenerative arthritic variation at the SI joints. In the lower extremities, degenerative arthritic changes in the knees, ankles and feet. Focal intense uptake in the left wrist at the site of injection. NM/NM bone scan whole body IMPRESSION: 1. Most probably posttraumatic etiology related uptake within left seventh and right ninth ribs as well as compression fracture at T10/T11 vertebrae. Suggest further characterization by dedicated anatomic imaging and histopathologic correlation if there are persistent concern for metastasis. 2. Additional areas of decreased uptake representing postprocedural changes within the T12 and lumbar vertebrae. Electronically signed by: Ovidio Garza MD 07/01/2024 11:24 AM [facility] [place]
--- NOTE | ~2024-06-13 | MM_ITS ---
EXAMINATION: MM SCREENING DIGITAL BREAST TOMOSYNTHESIS, BILATERAL CLINICAL INFORMATION: Screening. Asymptomatic. COMPARISON: Mammography: Comparison is made with available priors TECHNIQUE: Digital breast mammography with tomosynthesis is performed in both the craniocaudal and mediolateral oblique views along with computer-aided detection (CAD). FINDINGS: The breasts are heterogeneously dense, which may obscure small masses (ACR BI-RADS breast composition Category c). Bilateral several oval masses which wax and wane consistent with benign fibrocystic changes. Right retroareolar mass is not significantly changed dating back to 2019. There are no significant masses, abnormal calcifications, or other abnormalities. MM/MM tomosynthesis screening BI IMPRESSION: No mammographic evidence of malignancy. ASSESSMENT: BI-RADS BI-RADS 2 - Benign Findings RECOMMENDATION: Routine annual mammography screening. 1 year F/U This examination should not preclude the clinical evaluation of a suspicious palpable abnormality. This patient's information was entered into a reminder system with a target due date for their next mammogram. Electronically signed by: Marly Mccullough DO 06/19/2024 12:17 PM [facility]
--- OUTSIDE RECORDS SUMMARY | 2024-06-18 07:18 | XMS_ITS ---
Author Organization [facility] Address [address] [place] [address] Care Team Providers Care Retail Cosmetics Sales Beauty Advisor Name Role Phone Ariana ROCHA, Anupama Suarez Primary Care Provider Un available Tamika Bridges Unavailable [phone] REASON FOR VISIT Pt balance Encounters Encounter Location Date Provider Diagnosis [facility] [address] [place] [address] 02/27/2024 Tamika Bridges Plan Of Treatment No Information Progress Notes * Yamel BORRERODOB:1965 ([age] yo F)Acc No.[id number]:02/27/2024 Patient:?Yamel Borrero :1965???Age:58 Y???Sex:Female [address] [place], [address] * true * Date:? Generated for Daniel patel/Mendoza/eTransmitting on:?06/18/2024 07:18 AM EST
--- OUTSIDE RECORDS SUMMARY | 2024-06-18 07:18 | XMS_ITS | Patient Health Record ---
Author Organization [facility] Address [address] [place] [address] Care Team Providers Care Displayer Merchandise Name Role Phone Ariana ROCHA, Anupama Suarez Primary Care Provider Un available Tamika Bridges Unavailable [phone] Allergies No Known Allergies Reason For Referral No Information Medications Medication SIG (Take, Route, Frequency, Duration) Notes Start Date End Date Status Aleve Active Tylenol Active Social History Tobacco Use: Social History Observation Description Date Details (start date - stop date) Current Smoker NA - NA Tobacco Use/Smoking Question Answer Notes Are you a: current smoker How often do you smoke cigarettes? every day How many cigarettes a day do you smoke? 11-20 How soon after you wake up do you smoke your fir st cigarette? 6-30 minutes Alcohol Screen Question Answer Notes Did you have a drink contain ing alcohol in the past year? Yes How often did you have a dri nk containing alcohol in the past year? 4 or more times a week (4 points) Points 4 Interpretation Positive Tobacco use other than smoking: Question Answer Notes Are you an other tobacco user? No Problems Problem Type SNOMED Code ICD Code Onset Dates Problem Status W/U Status Risk Notes Problem Plantar wart (65450197) Plantar wart (B07.0) Active confirmed Vital Signs Blood pressure diastolic 70 mm Hg 11/20/2023 Height 5 ft 8 in in 11/20/2023 Blood pressure systolic 120 mm Hg 11/20/2023 Weight 128 lbs 11/20/2023 BMI 19.46 kg/m2 11/20/2023 Encounters Encounter Location Date Provider Diagnosis [facility] [address] [place] [address] 11/20/2023 Tamika Bridges Fungal infection of nail B35.1 ; Pain in right toe(s) M79.674 ; Pain in left toe(s) M79.675 ; Right foot pain M79.671 ; Plantar wart B07.0 and Left foot pain M79.[address] [facility] [address] [facility] [address] 02/27/[facility]24 [facility] [address] 02/27/2024 Tamika Bridges Assessments Encounter Date Diagnosis (ICD Code) Assessment Notes Treatment Notes Treatment Clinical Notes Section Notes 11/20/2023 Fungal infection of nail (ICD-10 - B35.1) 11/20/2023 Pain in right toe(s) (ICD-10 - M79.674) 11/20/2023 Pain in left toe(s) (ICD-10 - M79.675) 11/20/2023 Right foot pain (ICD-10 - M79.671) 11/20/2023 Left foot pain (ICD-10 - M79.672) 11/20/2023 Plantar wart (ICD-10 - B07.0) Plan Of Treatment No Information Insurance Providers Payer Name Payer Address Payer Phone Subscriber Number Group Number Insured Name Patient Relationship to Insured Coverage Start Date Coverage End Date Daphne [id number] [place] [phone] [id number] Nima Borrero Spouse - patient is the spouse of the insured Medical (General) History Medical History History ICD Code Broken bones Anxiety Surgical History Surgery Date(Month/Year) fractured spine 2022 appendectomy intestinal surgery- blockage
--- OUTSIDE RECORDS SUMMARY | 2024-06-18 07:18 | XMS_ITS ---
Author Organization [facility] Address [address] [place] [address] Care Team Providers Care Anatomical Embalmer Name Role Phone Ariana ROCHA, Anupama Suarez Primary Care Provider Un available Tamika Bridges Unavailable [phone] Medications Medication SIG (Take, Route, Frequency, Duration) Notes Start Date End Date Status Aleve Active Tylenol Active Encounters Encounter Location Date Provider Diagnosis [facility] [address] [place] [address] 02/27/2024 Tamika Bridges Plan Of Treatment No Information Progress Notes * Yamel BORRERODOB:1965 ([age] yo F)Acc No.[id number]:02/27/2024 Progress Note Patient:Yamel RUSSELL Provider:Mandy Bridges DPM :1965???Age:58 Y???Sex:Female D ate:02/27/2024 [address] [place] [place] Pcp:Khadra Chandler Subjective: * Chief Complaints: * ??? * HPI: ???Skin problems:?Pt States PCP Visit: ?DATE?07/10/2023 * Medical History:? * Medications:?Taking Aleve , Taking Tylenol Objective: * Vitals:? Assessment: Plan: * Treatment: * Images: * The named appointment provid er may or may not be the originator of this progress note, and it is not deemed complete until electronically signed by the appointment provider. Sign off status: Pending * Provider:?Tamika Bridges DPM Date:? Generated for Daniel patel/Mendoza/Jordana on:?06/18/2024 07:18 AM EST History and Physical Notes * HPI (History of Present Illness) Category Sub-Category Detail Notes Category Not es Skin problems Pt States PCP Visit: DATE: 07/10/2023
--- OUTSIDE RECORDS SUMMARY | 2024-06-18 07:18 | XMS_ITS ---
Author Organization [facility] Address [address] [place] [address] Care Team Providers Care Dental Chairside Assistant Name Role Phone Ariana ROCHA, Anupama Suarez Primary Care Provider Un available Tamika Bridges Unavailable [phone] REASON FOR VISIT SD Reschedule/Cancel Encounters Encounter Location Date Provider Diagnosis [facility] [address] [place] [address] 02/27/2024 Tamika Bridges Plan Of Treatment No Information Progress Notes * Yamel BORRERODOB:1965 ([age] yo F)Acc No.[id number]:02/27/2024 Patient:?Yamel Borrero :1965???Age:58 Y???Sex:Female Address:[address] [place], [address] * true * Date:? Generated for Printi amanda/Mendoza/eTransmitting on:?06/18/2024 07:18 AM EST
== END ==
LOC: HO.NUCMED 10:09
PROVIDERS: PCP Internal Medicine; Visit Provider Student in an Organized Health Care Education/Training Program
DX: Z12.9 Encounter for screening for malignant neoplasm, site unspecified (principal); Z12.31 Encounter for screening mammogram for malignant neoplasm of breast
CPT/HCPCS: 77063; 77067; 78306; A9503

== ENCOUNTER 2024-06-13 10:55 | Outpatient (REF) | payer OTHER, SELFPAY | END 2024-06-13 10:56 | disposition home or self-care (01) | LOC: HO.MAMMO 10:55 | PROVIDERS: PCP Internal Medicine; Visit Provider Internal Medicine | DX: Z13.89 Encounter for screening for other disorder (principal) ==

== ENCOUNTER → 2024-06-13 11:00 | Outpatient (BNV) | payer OTHER, SELFPAY | PROVIDERS: PCP Internal Medicine; Visit Provider Internal Medicine | DX: Z12.31 Encounter for screening mammogram for malignant neoplasm of breast (principal) | CPT/HCPCS: 77063; 77067 ==

== ENCOUNTER 2024-06-24 09:09 | Outpatient (AMB) | payer OTHER, SELFPAY ==
--- NOTE | 2024-06-24 09:10 | A.OFFVIS_ITS ---
Vital Signs 06/24/24 09:13 Height 5 ft 8 in Weight 117 lb 15.157 oz BMI 17.9 BP 100/60 Blood Pressure Location Lt brachial Position Sitting Pulse 100 Pulse Source Pulse Oximeter Pulse Oximetry (%) 96 Oxygen Delivery Method Room Air Intake Visit Reasons: osteoporosis Intake Note: Patient presents for Osteoporosis. Allergies No Known Allergies Allergy (Verified 06/24/24 09:13) Medication List - Last Reconciled 06/24/24 by Ismael Benitez MD back brace As directed calcium carbonate-vitamin D3 1,000 mg-20 mcg (800 unit) 1 tab PO BID cholecalciferol (vitamin D3) 1,250 mcg PO QWEEK 3 months duloxetine (Cymbalta) 20 mg PO DAILY famotidine 20 mg PO DAILY magnesium oxide 800 mg (2 x 400 mg (241.3 mg magnesium)) PO DAILY midodrine 2.5 mg PO TID multivitamin 1 tab PO DAILY naltrexone 50 mg PO DAILY walker use when walking outside your home HPI Comments Details: This is a 59-year-old female with osteoporosis who presents for follow-up. She has not been doing well lately. She had a fall at home, she was admitted to the hospital and was also found to be in alcohol withdrawal and discharged to rehab. She states that she quit alcohol use. She did not take vitamin-D suppl ementation as requested. She had a bone scan done recently, results pending. She has been walking very carefully, afraid to walk, would like a walker [facility] Medical History Depression with anxiety Osteoporosis Acute back pain with radiculopathy Papanicolaou smear declined Immunization refused Generalized anxiety disorder Smoker unmotivated to quit Alcohol use disorder Elevated liver enzymes Essential hypertension Colonoscopy refused Refused influenza vaccine Mixed dyslipidemia Social History Household Members: Spouse and Family Housing: House Do you presently have visiting nurse or other home services: No Alcohol intake: current Alcohol intake frequency: 3 or more drinks per day Patient Tobacco Use Status: Current everyday Tobacco user Tobacco use type: Cigarette Cigarette Packs Per Day: 1 Cigarettes Per Day: 20.0 Years Smoked: 40 & years e-Cigarette/Vaping Use: Never Used Second Hand Smoke Exposure: Yes Advance Directives Date on File: 04/16/20 service: No Current occupational status: unemployed Cognitive needs: No Hearing needs: No Vision needs: Yes Review of Systems Const Reports frequent falls Musc Reports back pain Neuro Reports frequent falls Physical Exam Vital Signs: Last Vital Signs Pulse 100 06/24/24 09:13 BP 100/60 06/24/24 09:13 Pulse Ox 96 06/24/24 09:13 Oxygen Delivery Method Room Air 06/24/24 09:13 BMI result Body Mass Index 17.9 Const General: cooperative, healthy appearing and comfortable Nutritional Appearance: thin Orientation/consciousness: patient oriented x3 HEENT Head: Yes normocephalic and Yes atraumatic Resp Effort & Inspection: normal respiratory effort and able to speak in complete sentences Auscultation: clear to auscultation bilaterally Skin General skin exam: no rashes or lesions noted Neuro General: patient oriented x3 Extrem Other: Walking very slowly Kyphotic Minimal osteoarthritic changes of both hands with no active synovitis Normal nailfold capillaroscopy Assessment & Plan Assessment & Plan (1) Osteoporosis: Comment: L3 fractured 2022 T12, L1, L2, L4 fractures 11/2023 Code(s): M81.0 - Age-related osteoporosis without current pathological fracture Category: Medical Qualifiers: Osteoporosis type: age-related Presence of current pathological fracture: with current pathological fracture Encounter type: initial encounter Qualified Code(s): M80.00XA - Age-related osteoporosis with current pathological fracture, unspecified site, initial encounter for fracture Plan: This is a 59-year-old female who was referred for evaluation of osteoporosis. Patient has severe osteoporosis, she fractured her L3 in 2022 and fractured 4 more vertebrae in 2023. Has not received any treatment for osteoporosis. Discussed nature of osteoporosis. Patient had early menopause, in her 30s. Which is likely a risk. She continues to smoke. Advised patient to quit smokin g. She also has history of alcohol misuse and was recently admitted after a fall and alcohol withdrawal. She was discharged to rehab. Per patient she has quit alcohol use. Discussed the effects of alcohol on her general health in particular related to her osteoporosis and the role of the liver and vitamin-D activation as well as the increased risk of falls and more fractures. Her blood work showed significant vitamin-D deficiency. I asked patient last visit to start vitamin-D supplementation and calcium as prescribed. She did not take it. Advised patient to take the vitamin-D 03317 units weekly as well as calcium and vitamin-D daily. We had discussed Evenity about patient agreed and it was approved but we should optimize her vitamin-D before starting Evenity. Had ordered a bone scan to rule out metastatic disease last visit. It was done but has not been read yet. Will reach out to radiology department. Labs before next visit in 3 months (2) Compression fracture of lumbar vertebra: Code(s): S32.000A - Wedge compression fracture of unspecified lumbar vertebra, initial encounter for closed fracture Category: Medical Qualifiers: Encounter type: initial encounter Lumbar vertebra fracture level: L2 Qualified Code(s): S32.020A - Wedge compression fracture of second lumbar vertebra, initial encounter for closed fracture (3) Smoker unmotivated to quit: Code(s): F17.200 - Nicotine dependence, unspecified, uncomplicated Category: Social Hx Plan: Discussed numerous adverse health effects associated with smoking. Including worsening osteoporosis. Patient is still unmotivated to quit (4) At high risk for falls: Code(s): Z91.81 - History of falling Category: Medical Plan: Walker prescribed Plan I spent 27 minutes reviewing patient's chart, evaluating patient, ordering diagnostic workup, counseling patient and documenting in the chart Medications: New walker use when walking outside your home 1 ea 0RF Z91.81 - History of falling Coding Level of Care Code Est Pt Level 4 (39604) Diagnoses Age-related osteoporosis with current pathological fracture, initial encounter M80.00XA Osteoporosis type: age-related Presence of current pathological fracture: with current pathological fracture Encounter type: initial encounter Compression fracture of L2 vertebra, initial encounter S32.020A Encounter type: initial encounter Lumbar vertebra fracture level: L2 Smoker unmotivated to quit F17.200 At high risk for falls Z91.81
[2024-06-24 09:13] VITALS: BP 100/60; PULSE 100; O2SAT 96; BMI 17.9
--- OUTSIDE RECORDS SUMMARY | 2024-06-24 09:17 | XMS_ITS ---
Author Organization [facility] Address [address] [place] [address] Care Team Providers Care Manager Nursing Name Role Phone Ariana ROCHA, Anupama Suarez Primary Care Provider Un available Tamika Bridges Unavailable [phone] Medications Medication SIG (Take, Route, Frequency, Duration) Notes Start Date End Date Status Aleve Active Tylenol Active Encounters Encounter Location Date Provider Diagnosis [facility] [address] [place] [address] 02/27/2024 Tamika Bridges Plan Of Treatment No Information Progress Notes * Yamel BORRERODOB:1965 ([age] yo F)Acc No.[id number]:02/27/2024 Progress Note Patient:Yamel RUSSELL Provider:Mandy Bridges DPM :1965???Age:58 Y???Sex:Female D ate:02/27/2024 [address] [place], [place] Pcp:Khadra Chandler Subjective: * Chief Complaints: * [...] Bridges DPM Date:? Generated for Daniel patel/Mendoza/Jordana on:?06/24/2024 09:16 AM EST History and Physical Notes * HPI (History of Present Illness) Category Sub-Category Detail Notes Category Not es Skin problems Pt States PCP Visit: DATE: 07/10/2023
--- OUTSIDE RECORDS SUMMARY | 2024-06-24 09:17 | XMS_ITS ---
Author Organization [facility] Address [address] [place] [address] Care Team Providers Care Sorority Mother Name Role Phone Ariana ROCHA, Anupama Suarez Primary Care Provider Un available Tamika Bridges Unavailable [phone] REASON FOR VISIT Pt balance Encounters Encounter Location Date Provider Diagnosis [facility] [address] [place] [address] 02/27/2024 Tamika Bridges Plan Of Treatment No Information Progress Notes * Yamel BORRERODOB:1965 ([age] yo F)Acc No.[id number]:02/27/2024 Patient:?Yamel Borrero :1965???Age:58 Y???Sex:Female Address:[address] [place], [address] * true * Date:? Generated for Daniel patel/Mendoza/eTransmitting on:?06/24/2024 09:16 AM EST
--- OUTSIDE RECORDS SUMMARY | 2024-06-24 09:17 | XMS_ITS | Patient Health Record ---
Author Organization [facility] Address [address] [place] [address] Care Team Providers Care Claims Administrator Name Role Phone Ariana ROCHA, Anupama Suarez Primary Care Provider Un available Tamika Bridges Unavailable [phone] Allergies No Known Allergies Reason For Referral [...] W/U Status Risk Notes Problem Plantar wart (51530440) Plantar wart (B07.0) Active confirmed Vital Signs Blood pressure diastolic 70 mm Hg 11/20/2023 Height 5 ft 8 in in 11/20/2023 Blood pressure systolic 120 mm Hg 11/20/2023 Weight 128 lbs 11/20/2023 BMI 19.46 kg/m2 11/20/2023 Encounters Encounter Location Date Provider Diagnosis [facility] [address] [place] [address] 11/20/2023 Tamika Bridges Fungal infection of nail B35.1 ; Pain in right toe(s) M79.674 ; Pain in left toe(s) M79.675 ; Right foot pain M79.671 ; Plantar wart B07.0 and Left foot pain M79.[address] [facility] [address] [facility] [address] 02/27/2024 [facility] [address] 02/27/2024 Tamika Bridges Assessments Encounter Date Diagnosis [...] Date Coverage End Date Daphne [id number] Narciso msJOSÉ LUIS [phone] [id number] Nima Borrero Spouse - patient is the spouse of the insured Medical (General) History Medical History History ICD Code Broken bones Anxiety Surgical History Surgery Date(Month/Year) fractured spine 2022 appendectomy intestinal surgery- blockage
--- OUTSIDE RECORDS SUMMARY | 2024-06-24 09:17 | XMS_ITS ---
Author Organization [facility] Address [address] [place] [address] Care Team Providers Care Paper Cup Handle Machine Operator Name Role Phone Ariana ROCHA, Anupama Suarez Primary Care Provider Un available Tamika Bridges Unavailable [phone] REASON FOR VISIT SD Reschedule/Cancel Encounters Encounter Location Date Provider Diagnosis [facility] [address] [place] [address] 02/27/2024 Tamika Bridges Plan Of Treatment No Information Progress Notes * Yamel BORRERODOB:1965 ([age] yo F)Acc No.[id number]:02/27/2024 Patient:?Yamel Borrero :1965???Age:58 Y???Sex:Female Address:[address] [place], [address] * true * Date:? Generated for Printi amanda/Mendoza/eTransmitting on:?06/24/2024 09:17 AM EST
== END 2024-06-24 09:31 | disposition home or self-care (01) ==
PROVIDERS: PCP Internal Medicine; Visit Provider Student in an Organized Health Care Education/Training Program
DX: M80.00XA Age-related osteoporosis with current pathological fracture, unspecified site, initial encounter for fracture (principal); S32.020A Wedge compression fracture of second lumbar vertebra, initial encounter for closed fracture; F17.200 Nicotine dependence, unspecified, uncomplicated; Z91.81 History of falling
CPT/HCPCS: 99214

== ENCOUNTER → 2024-06-24 09:09 | Outpatient (BNVA) | payer OTHER, SELFPAY | PROVIDERS: PCP Internal Medicine; Visit Provider Student in an Organized Health Care Education/Training Program ==